=== PATIENT | male | born 1940 | race Caucasian/White ===

== ENCOUNTER 2019-01-10 08:19 | Inpatient (IN) ==
[2019-01-10] MEDS ORDERED: LOPRESSOR INJ 5 MG AMP ONE (08:52)
[2019-01-10] MEDS ORDERED: NORMODYNE INJ 100 MG VIAL ONE (08:53)
--- NOTE | 2019-01-10 09:07 | DR.WEAKNES ---
HPI Time Seen Time Seen by Provider: 01/10/19 08:41 Complaints Chief Complaint Doctors Comments: LEFT SIDED WEAKNESS. Chief Complaint:: PT TO ER VIA EMS WITH C/O LEFT SIDED WEAKNESS THAT STARTED 30 MIN AGO, Reviewed Nurses Notes Reviewed: Yes Source History Provided: Patient and EMS Mode of Arrival Mode of Arrival: Stretcher Timing Onset of Chief Complaint: 01/10/19 Location Weakness Location: Generalized and Sided Associated Signs and Symptoms Associated Signs and Symptoms: None Other History Other History: HYPERTENSION. PMH PMH Past Medical History: Yes Past Medical History: Diabetes and Hypertension Past Surgical History: No Family History History of Family Medical Conditions: No Social History Does patient currently use any type of tobacco product: No Have you used tobacco products in the last 12 months: No Type of Tobacco Use: None Does any household member use tobacco: No Alcohol Use: None Do you use any recreational Drugs:: No Lives With: Family Lives Where: Home infectious screening In the last 2 months have you had wt loss of >10#?: NO Have you had fever, night sweats or hemotysis?: No Have you traveled outside the country in the last 6 months?: No Isolation: Standard ROS Review of Systems Constitutional: No Symptoms Reported and Weakness; negative Chills, Diaphoresis, Fever, Fatigue and Loss of Appetite Eyes: No Symptoms Reported; negative Eye Pain, Blurred Vision, Tearing, Discharge, Photophobia and Diplopia ENTM: No Symptoms Reported; negative Ear Pain, Nose Discharge, Epistaxis, Nose Congestion and Throat Pain Respiratoy: No Symptoms Reported; negative Productive Cough, Orthopnea, Short of Breath, Wheezing and Hemoptysis Cardiovascular: No Symptoms Reported; negative Chest Pain, Edema, Palpitations and Syncope Gastrointestinal/Abdominal: No Symptoms Reported; negative Abdominal Pain, Constipation, Diarrhea, Nausea and Vomiting Genitourinary: No Symptoms Reported; negative Dysuria, Frequency and Hematuria Neurological: No Symptoms Reported Musculoskeletal: Other (LEFT SIDED WEAKNESS.) Integumentary: No Symptoms Reported; negative Change in Color, Bruises and Juandice Hematologic/Lymphatic: No Symptoms Reported; negative Easy Bleeding, Easy Bruising, Swollen Glands and Lymphadenopathy Endocrine: No Symptoms Reported; negative Flushing, Increased Thirst and Increased Urine Psychiatric: No Symptoms Reported All Other Systems: Reviewed and Negative PE Vital Signs Vitals: Temperature 97.6 F Pulse Rate 55 Respiratory Rate 14 Blood Pressure 110/55 O2 Sat by Pulse Oximetry 94 General Limitations: No Limitations General Appearance: Alert, In No Apparent Distress and Other (RIGHT FACIAL DROOPING.); negative In Distress Head Head Exam: Atraumatic, Normocephalic and Other Head Exam Physical: Other (NONE OF THE ABOVE NOTED) Eyes Eye exam: PERRL and EOMI; negative Scleral Icterus, Conjunctival Injection, Nystagmus, Miosis, Mydrasis, Periorbital Swelling and Periorbital Tenderness Eyelids: Normal Inspection: Bilateral Pupils: Regular, Round: Bilateral and Reactive: Bilateral Sclera/Conjunctival: Normal Inspection: Bilateral ENT ENT Exam: Normal Exam, Normal Oropharynx, Normal External Ear Exam, Mucous Membranes Moist and TM's Normal Bilaterally Mouth Exam: negative Drooling, Trismus, Lip Swelling and Tongue Swelling Throat Exam: Normal Inspection, Tonsillar Erythema, Tonsillomegaly and Tonsillar Exudate Neck Neck Exam: Normal Inspection, Full ROM and Trachea Midline; negative Tenderness, Meningismus and Lymphadenopathy Chest Chest Inspection: Normal Inspection and Symmetric Chest Wall Rise; negative Tenderness and Rash Respiratory Respiratory Exam: Normal Lung Sounds Bilat; negative Accessory Muscle Use, Chest Wall Tenderness and Respiratory Distress Respiratory Exam: Bilateral: Rhonchi and Lower: Rhonchi Cardiovascular Cardiovascular Exam: Regular Rate; negative Systolic Murmur, Diastolic Murmur, Rubs and Gallop Abdominal Exam Abdominal Exam: Normal Inspection, Normal Bowel Sounds and Soft; negative Tenderness, Organomegaly and Mass Extremities Extremities Exam: Normal Inspection and Normal Capillary Refill; negative Tenderness, Edema, Joint Swelling and Calf Tenderness Back Back Exam: Normal Inspection; negative Tenderness, Paraspinal Tenderness and Vertebral Tenderness Neurologic Neurological Exam: Alert, Oriented X3 and Motor Sensory Deficit (LEFT SIDED WEAKNESS.); negative CN II-XII Intact (GAG INTACT.) Patient Oriented To: Person, Place and Time Speech: Fluid Speech Cranial Nerve Exam: EOM Function (II, III, IV, ): Normal, Facial Sensation (V ): Normal, Facial Palsy (VII): Right Abnormal, Gag reflex (XI): Normal, Spinal Accessory Function (XI): Normal and Tongue Deviation: Normal Cerebellar Function: Finger to Nose: Normal Motor Strength - LUE: 1/5 Motor Strength - RUE: 4/5 Motor Strength - LLE: 0/5 Motor Strength - RLE: 4/5 Upper Motor Neuron Exam: Babinski Sign: Left Positive DTR: bicep (R): 2+, brachioradialis (L): 2+, brachioradialis (R): 2+ and Patellar (L): 2+ Psychiatric Psychiatric Exam: Normal Affect and Anxious Skin Skin Exam: Warm, Dry, Intact and Normal Color MDM Differential Diagnosis Differential Diagnosis: CVA, Electrolyte Disorder, Mass Lesion and TIA COURSE Treatment Treatment: SEE ORDERS. Education/Counseling Education/Counseling: Patient Educated On: Diagnosis ROR Labs Reviewed Laboratory Results Reviewed?: Yes Result Diagrams: 01/12/19 05:11 01/12/19 05:11 Laboratory: WBC 11.2 X10^3/uL (3.6-10.0) H 01/12/19 05:11 RBC 4.95 X10^6/uL (4.7-6.0) 01/12/19 05:11 Hgb 15.4 g/dL (13.5-18.0) 01/12/19 05:11 Hct 45.2 % (42.0-54.0) 01/12/19 05:11 MCV 91.3 fL (80.0-100.0) 01/12/19 05:11 MCH 31.1 pg (27.0-34.0) 01/12/19 05:11 MCHC 34.1 g/dL (33.0-35.0) 01/12/19 05:11 RDW 13.2 % (11.6-16.5) 01/12/19 05:11 Plt Count 189 X10^3/uL (150.0-450.0) 01/12/19 05:11 MPV 10.0 fL (7.4-11.0) 01/12/19 05:11 Neut % (Auto) 83.9 % (42.0-75.0) H 01/12/19 05:11 Lymph % (Auto) 7.8 % (21.0-51.0) L 01/12/19 05:11 [place] % (Auto) 7.8 % (0.0-13.0) 01/12/19 05:11 Eos % (Auto) 0.2 % (0.9-2.9) L 01/12/19 05:11 Baso % (Auto) 0.3 % (0.2-1.0) 01/12/19 05:11 Neut # (Auto) 9.4 x10^3/uL (2.2-4.8) H 01/12/19 05:11 Lymph # (Auto) 0.9 X10^3/uL (1.3-2.9) L 01/12/19 05:11 [place] # (Auto) 0.9 x10^3/uL (0.3-0.8) H 01/12/19 05:11 Eos # (Auto) 0.0 x10^3/uL (0.0-0.2) 01/12/19 05:11 Baso # (Auto) 0.0 X10^3/uL (0.0-0.1) 01/12/19 05:11 Absolute Nucleated RBC 0.0 /100WBC 01/12/19 05:11 INR Target Range - 01/10/19 08:55 INR 0.96 (0.8-1.3) 01/10/19 08:55 APTT 30.6 SECONDS (22.9-36.5) 01/10/19 08:55 PTT Comment - 01/10/19 08:55 Sodium 135 mmol/L (136-145) L 01/12/19 05:11 Corrected Sodium 138 mmol/L (136-145) 01/12/19 05:11 Potassium 4.4 mmol/L (3.5-5.1) 01/12/19 05:11 Chloride 100 mmol/L (98-107) 01/12/19 05:11 Carbon Dioxide 20.5 mmol/L (21-32) L 01/12/19 05:11 BUN 45 mg/dL (7-18) H 01/12/19 05:11 Creatinine 1.37 mg/dL (0.70-1.30) H 01/12/19 05:11 Est GFR (MDRD) Af Amer > 60 (>60) 01/12/19 05:11 Est GFR (MDRD) Non-Af 53 (>60) L 01/12/19 05:11 Glucose 242 mg/dL (65-99) H 01/12/19 05:11 POC Glucose (mg/dL) 214 mg/dL (65-99) H 01/12/19 16:38 Calcium 9.4 mg/dL (8.5-10.1) 01/12/19 05:11 Corrected Calcium TNP 01/12/19 05:11 Magnesium 1.7 mg/dL (1.7-2.9) 01/11/19 04:01 Total Bilirubin 1.10 mg/dL (0.2-1.0) H 01/12/19 05:11 AST 11 Units/L (15-37) L 01/12/19 05:11 ALT 12 Units/L (12-78) 01/12/19 05:11 Alkaline Phosphatase 54 Units/L (46-116) 01/12/19 05:11 Creatine Kinase 70 Units/L (39-308) 01/10/19 21:44 CK-MB (CK-2) 1.4 ng/mL (0-4.0) 01/10/19 21:44 CK/CKMB % Calc 2.0 % (<4) 01/10/19 21:44 Troponin I < 0.02 ng/mL (0-1.5) 01/10/19 21:44 Total Protein 7.0 g/dL (6.4-8.2) 01/12/19 05:11 Albumin 3.7 g/dL (3.4-5.0) 01/12/19 05:11 Globulin 3.3 g/dL (2.5-4.5) 01/12/19 05:11 Albumin/Globulin Ratio 1.1 Ratio (1.1-2.1) 01/12/19 05:11 Specimen Type Catherized urine 01/10/19 15:40 Urine Color Yellow (YELLOW) 01/10/19 15:40 Urine Appearance Clear (CLEAR) 01/10/19 15:40 Urine pH 6.0 (5.0 - 8.0) 01/10/19 15:40 Ur Specific [place] 1.015 (1.000-1.030) 01/10/19 15:40 Urine Protein 2+ (NEGATIVE) 01/10/19 15:40 Urine Glucose (UA) 4+ (NEGATIVE) 01/10/19 15:40 Urine Ketones 1+ (NEGATIVE) 01/10/19 15:40 Urine Occult Blood 2+ (NEGATIVE) 01/10/19 15:40 Urine Nitrite Negative (NEGATIVE) 01/10/19 15:40 Urine Bilirubin Negative (NEGATIVE) 01/10/19 15:40 Urine Urobilinogen Normal (NORMAL) 01/10/19 15:40 Ur Leukocyte Esterase Negative (NEGATIVE) 01/10/19 15:40 Urine RBC 0-2 /HPF (NONE SEEN) 01/10/19 15:40 Urine WBC 0-2 /HPF (NONE SEEN) 01/10/19 15:40 Ur Squamous Epith Cells Rare /HPF (NEGATIVE) 01/10/19 15:40 Urine Bacteria Negative /HPF (NEGATIVE) 01/10/19 15:40 Ur Culture Indicated? No/not indicated 01/10/19 15:40 XRAY XRAY Interpreted by: Radiologist XRAY Findings: REPORT ON RECORD NOTED AND DISCUSS WITH PATIENT. EKG Rate: 64 [place]: Normal Rhythm: NSR Block: 1 (INCREASE [place] INT.) Hypertrophy: None ST: Old, Inf and Infarct Diagnosis Discharge Problem: CVA (cerebral vascular accident)
[2019-01-10 09:11] VITALS: BMI 31.3
[2019-01-10] MEDS ORDERED: NORMODYNE INJ 20 MG VIAL IVP ONE (09:11)
--- NOTE | 2019-01-10 09:15 | CT ---
HISTORY: Acute left-sided weakness Study: CT head without contrast Comparison: None Technique: Technique: Axial noncontrast images with coronal and sagittal reformats. Dose reduction procedures were used with mA/kv adjusted for body size. Findings: The ventricles are normal in size, shape, and position. There is decreased attenuation in the periventricular white matter suggestive of small vessel vascular disease. There is a focus of decreased attenuation in the right centrum semiovale extending into the right horvath radiata which could represent a focus of small vessel disease, however, edema secondary to a recent nonhemorrhagic CVA cannot be excluded particularly considering the history. MRI with diffusion imaging is recommended for further evaluation. There is an old lacunar are CVA in the left sub insular region there is no evidence for hemorrhage, mass lesion, or extra-axial fluid collection. IMPRESSION: Focus of decreased attenuation in the right centrum semiovale extending into the right horvath radiata possibly indicative of edema secondary to a nonhemorrhagic CVA. Correlation with MRI with diffusion imaging is recommended. No evidence for hemorrhage Small vessel disease Reported By:
[2019-01-10 09:22] LABS: BASOPHILS % (AUTO) 0.6 % (0.2-1.0); EOSINOPHILS # (AUTO) 0.2 x10^3/uL (0.0-0.2); EOSINOPHILS % (AUTO) 2.9 % (0.9-2.9); HEMOGLOBIN 16.6 g/dL (13.5-18.0); LYMPHOCYTES # (AUTO) 1.1 X10^3/uL (1.3-2.9); MEAN CORPUSCULAR HEMOGLOBIN 31.1 pg (27.0-34.0); MEAN CORPUSCULAR HGB CONC 33.9 g/dL (33.0-35.0); MEAN CORPUSCULAR VOLUME 91.7 fL (80.0-100.0); MEAN PLATELET VOLUME 9.7 fL (7.4-11.0); MONOCYTES # (AUTO) 0.4 x10^3/uL (0.3-0.8); MONOCYTES % (AUTO) 4.9 % (0.0-13.0); NEUTROPHILS # (AUTO) 6.2 x10^3/uL (2.2-4.8); NEUTROPHILS % (AUTO) 77.6 % (42.0-75.0); PLATELET COUNT 191 X10^3/uL (150.0-450.0); RED BLOOD COUNT 5.34 X10^6/uL (4.7-6.0); WHITE BLOOD COUNT 7.9 X10^3/uL (3.6-10.0)
[2019-01-10 09:37] LABS: BLOOD UREA NITROGEN 36 mg/dL (7-18); CALCIUM 9.7 mg/dL (8.5-10.1); CARBON DIOXIDE 23.1 mmol/L (21-32); CHLORIDE 99 mmol/L (98-107); COR NA(FOR HYPERGLY) 139 mmol/L (136-145); CREATININE 1.42 mg/dL (0.70-1.30); SODIUM 136 mmol/L (136-145); TROPONIN I < 0.02 ng/mL (0-1.5); eGFR NON BLACK RACES 51 (>60)
[2019-01-10 09:41] LABS: ALANINE AMINOTRANSFERASE 13 Units/L (12-78); ALBUMIN 4.3 g/dL (3.4-5.0); ALKALINE PHOSPHATASE 58 Units/L (46-116); ASPARTATE AMINO TRANSFERASE 16 Units/L (15-37); CKMB % 1.9 % (<4); CREATINE KINASE 59 Units/L (39-308); CREATINE KINASE MB 1.1 ng/mL (0-4.0); TOTAL PROTEIN 7.8 g/dL (6.4-8.2)
--- NOTE | 2019-01-10 09:45 | RAD ---
HISTORY: Shortness of breath Study: Chest AP portable Comparison: None Findings: The heart is minimally enlarged. No congestive heart failure is noted. The reed are normal. The lungs are hypo inflated but free of acute infiltrates. The bony thorax is unremarkable. IMPRESSION: Lungs hypo inflated but clear Reported By:
[2019-01-10 09:52] LABS: BILIRUBIN,URINE NEGATIVE (NEGATIVE); BLOOD/HEMOGLOBIN,URINE 1+ (NEGATIVE); GLUCOSE, URINE 4+ (NEGATIVE); KETONES,URINE 3+ (NEGATIVE); LEUKOCYTE ESTERASE ,URINE 1+ (NEGATIVE); NITRITES,URINE NEGATIVE (NEGATIVE); PROTEIN,URINE 2+ (NEGATIVE); UROBILINOGEN,URINE NORMAL (NORMAL)
[2019-01-10 09:59] LABS: APPEARANCE,URINE CLEAR (CLEAR); COLOR,URINE YELLOW (YELLOW)
[2019-01-10 10:00] LABS: BACTERIA,URINE NEGATIVE /HPF (NEGATIVE); RBC,URINE 0-2 /HPF (NONE SEEN); SQUAMOUS EPITHELIAL CELL,UR NEGATIVE /HPF (NEGATIVE)
[2019-01-10] MEDS ORDERED: ASPIRIN 81 MG CHEWTAB ONE (10:06)
[2019-01-10] MEDS ORDERED: ASPIRIN 81 MG CHEWTAB PO SCH (11:00)
[2019-01-10] MEDS: VALIUM INJ IVP PRN ×2 (16:11→23:17)
[2019-01-10 16:34] LABS: BILIRUBIN,URINE NEGATIVE (NEGATIVE); BLOOD/HEMOGLOBIN,URINE 2+ (NEGATIVE); GLUCOSE, URINE 4+ (NEGATIVE); KETONES,URINE 1+ (NEGATIVE); LEUKOCYTE ESTERASE ,URINE NEGATIVE (NEGATIVE); NITRITES,URINE NEGATIVE (NEGATIVE); PROTEIN,URINE 2+ (NEGATIVE); UROBILINOGEN,URINE NORMAL (NORMAL)
[2019-01-10 16:54] LABS: APPEARANCE,URINE CLEAR (CLEAR); BACTERIA,URINE NEGATIVE /HPF (NEGATIVE); COLOR,URINE YELLOW (YELLOW); RBC,URINE 0-2 /HPF (NONE SEEN); SQUAMOUS EPITHELIAL CELL,UR RARE /HPF (NEGATIVE)
[2019-01-10 17:11] LABS: CKMB % 2.3 % (<4); CREATINE KINASE 56 Units/L (39-308); CREATINE KINASE MB 1.3 ng/mL (0-4.0); TROPONIN I < 0.02 ng/mL (0-1.5)
[2019-01-10] MEDS ORDERED: TYLENOL 325 MG TAB PO PRN (18:04)
[2019-01-10] MEDS: HumuLIN R SC PRN (18:07)
[2019-01-10] MEDS: PROTONIX INJ 40 MG VIAL IVP SCH (18:08)
[2019-01-10] MEDS ORDERED: ULTRAM ONE (18:08)
[2019-01-10] MEDS: ULTRAM PO PRN (18:25)
[2019-01-10] MEDS: NORVASC TAB 10 MG PO SCH (21:12)
[2019-01-10 22:18] LABS: CREATINE KINASE 70 Units/L (39-308); CREATINE KINASE MB 1.4 ng/mL (0-4.0); TROPONIN I < 0.02 ng/mL (0-1.5)
[2019-01-11] MEDS ORDERED: CATAPRES TAB 0.1 MG PO ONE (04:01)
[2019-01-11] MEDS ORDERED: CATAPRES TAB 0.1 MG ONE (04:06)
[2019-01-11 05:22] LABS: BASOPHILS % (AUTO) 0.3 % (0.2-1.0); EOSINOPHILS # (AUTO) 0.1 x10^3/uL (0.0-0.2); EOSINOPHILS % (AUTO) 1.3 % (0.9-2.9); HEMATOCRIT 46.6 % (42.0-54.0); LYMPHOCYTES # (AUTO) 1.1 X10^3/uL (1.3-2.9); LYMPHOCYTES % (AUTO) 11.8 % (21.0-51.0); MEAN CORPUSCULAR HEMOGLOBIN 31.3 pg (27.0-34.0); MEAN CORPUSCULAR HGB CONC 34.3 g/dL (33.0-35.0); MEAN CORPUSCULAR VOLUME 91.3 fL (80.0-100.0); MEAN PLATELET VOLUME 9.7 fL (7.4-11.0); MONOCYTES # (AUTO) 0.6 x10^3/uL (0.3-0.8); MONOCYTES % (AUTO) 6.9 % (0.0-13.0); NEUTROPHILS # (AUTO) 7.3 x10^3/uL (2.2-4.8); NEUTROPHILS % (AUTO) 79.7 % (42.0-75.0); PLATELET COUNT 172 X10^3/uL (150.0-450.0); RED CELL DISTRIBUTION WIDTH 13.2 % (11.6-16.5); WHITE BLOOD COUNT 9.2 X10^3/uL (3.6-10.0)
[2019-01-11 05:34] LABS: ALANINE AMINOTRANSFERASE 12 Units/L (12-78); ALBUMIN 3.9 g/dL (3.4-5.0); ALKALINE PHOSPHATASE 53 Units/L (46-116); ASPARTATE AMINO TRANSFERASE 15 Units/L (15-37); BLOOD UREA NITROGEN 31 mg/dL (7-18); CALCIUM 9.6 mg/dL (8.5-10.1); CARBON DIOXIDE 21.7 mmol/L (21-32); CHLORIDE 100 mmol/L (98-107); COR NA(FOR HYPERGLY) 137 mmol/L (136-145); CREATININE 1.12 mg/dL (0.70-1.30); MAGNESIUM 1.7 mg/dL (1.7-2.9); SODIUM 136 mmol/L (136-145); eGFR NON BLACK RACES > 60 (>60)
[2019-01-11] MEDS ORDERED: PRAVACHOL PO SCH (09:00)
[2019-01-11] MEDS: PROTONIX INJ 40 MG VIAL IVP SCH (09:27)
[2019-01-11] MEDS: ASPIRIN PO SCH (09:27)
[2019-01-11] MEDS: ACTOS PO SCH (09:28)
[2019-01-11] MEDS: NORVASC TAB 10 MG PO SCH (09:28)
[2019-01-11] MEDS: COZAAR PO SCH (13:21)
[2019-01-11] MEDS: PLAVIX PO SCH (13:21)
[2019-01-11] MEDS: ULTRAM PO PRN (15:50)
[2019-01-11] MEDS: HumuLIN R SC PRN (16:43)
[2019-01-11] MEDS ORDERED: VALIUM PO PRN (20:25)
[2019-01-11] MEDS ORDERED: VALIUM ONE (20:29)
[2019-01-11] MEDS: CRESTOR TAB 10 MG PO SCH (20:30)
[2019-01-11] MEDS: RESTORIL CAP 15 MG PO PRN (22:10)
[2019-01-12 05:30] LABS: BASOPHILS % (AUTO) 0.3 % (0.2-1.0); EOSINOPHILS % (AUTO) 0.2 % (0.9-2.9); HEMATOCRIT 45.2 % (42.0-54.0); HEMOGLOBIN 15.4 g/dL (13.5-18.0); LYMPHOCYTES # (AUTO) 0.9 X10^3/uL (1.3-2.9); LYMPHOCYTES % (AUTO) 7.8 % (21.0-51.0); MEAN CORPUSCULAR HEMOGLOBIN 31.1 pg (27.0-34.0); MEAN CORPUSCULAR HGB CONC 34.1 g/dL (33.0-35.0); MEAN CORPUSCULAR VOLUME 91.3 fL (80.0-100.0); MONOCYTES # (AUTO) 0.9 x10^3/uL (0.3-0.8); MONOCYTES % (AUTO) 7.8 % (0.0-13.0); NEUTROPHILS # (AUTO) 9.4 x10^3/uL (2.2-4.8); NEUTROPHILS % (AUTO) 83.9 % (42.0-75.0); PLATELET COUNT 189 X10^3/uL (150.0-450.0); RED BLOOD COUNT 4.95 X10^6/uL (4.7-6.0); RED CELL DISTRIBUTION WIDTH 13.2 % (11.6-16.5); WHITE BLOOD COUNT 11.2 X10^3/uL (3.6-10.0)
[2019-01-12 05:40] LABS: ALANINE AMINOTRANSFERASE 12 Units/L (12-78); ALBUMIN 3.7 g/dL (3.4-5.0); ALKALINE PHOSPHATASE 54 Units/L (46-116); ASPARTATE AMINO TRANSFERASE 11 Units/L (15-37); BLOOD UREA NITROGEN 45 mg/dL (7-18); CALCIUM 9.4 mg/dL (8.5-10.1); CARBON DIOXIDE 20.5 mmol/L (21-32); CHLORIDE 100 mmol/L (98-107); COR NA(FOR HYPERGLY) 138 mmol/L (136-145); CREATININE 1.37 mg/dL (0.70-1.30); SODIUM 135 mmol/L (136-145); eGFR NON BLACK RACES 53 (>60)
[2019-01-12] MEDS: HumuLIN R SC PRN ×5 (06:16→20:37)
[2019-01-12] MEDS: ASPIRIN PO SCH (08:36)
[2019-01-12] MEDS: MILK OF MAGNESIA PO SCH ×2 (08:36→20:36)
[2019-01-12] MEDS: PROTONIX INJ 40 MG VIAL IVP SCH (08:36)
[2019-01-12] MEDS: ACTOS PO SCH ×2 (08:36→12:10)
[2019-01-12] MEDS: COZAAR PO SCH (08:36)
[2019-01-12] MEDS: NORVASC TAB 10 MG PO SCH (08:37)
[2019-01-12] MEDS: COLACE CAP 100 MG PO SCH ×2 (08:38→20:38)
[2019-01-12] MEDS: PLAVIX PO SCH (08:38)
[2019-01-12] MEDS: GLUCOPHAGE XR PO SCH ×2 (12:11→20:36)
[2019-01-12] MEDS: RESTORIL CAP 15 MG PO PRN (20:38)
[2019-01-12] MEDS: CRESTOR TAB 10 MG PO SCH (20:38)
[2019-01-13] MEDS: HumuLIN R SC PRN ×3 (05:39→21:00)
[2019-01-13 05:43] LABS: BASOPHILS % (AUTO) 0.4 % (0.2-1.0); EOSINOPHILS # (AUTO) 0.1 x10^3/uL (0.0-0.2); EOSINOPHILS % (AUTO) 0.8 % (0.9-2.9); HEMATOCRIT 45.9 % (42.0-54.0); HEMOGLOBIN 15.5 g/dL (13.5-18.0); LYMPHOCYTES # (AUTO) 1.1 X10^3/uL (1.3-2.9); LYMPHOCYTES % (AUTO) 9.4 % (21.0-51.0); MEAN CORPUSCULAR HEMOGLOBIN 30.9 pg (27.0-34.0); MEAN CORPUSCULAR HGB CONC 33.7 g/dL (33.0-35.0); MEAN CORPUSCULAR VOLUME 91.7 fL (80.0-100.0); MEAN PLATELET VOLUME 10.2 fL (7.4-11.0); MONOCYTES % (AUTO) 8.8 % (0.0-13.0); NEUTROPHILS # (AUTO) 9.4 x10^3/uL (2.2-4.8); NEUTROPHILS % (AUTO) 80.6 % (42.0-75.0); PLATELET COUNT 191 X10^3/uL (150.0-450.0); RED BLOOD COUNT 5.01 X10^6/uL (4.7-6.0); RED CELL DISTRIBUTION WIDTH 13.2 % (11.6-16.5); WHITE BLOOD COUNT 11.7 X10^3/uL (3.6-10.0)
[2019-01-13 05:54] LABS: ALANINE AMINOTRANSFERASE 11 Units/L (12-78); ALBUMIN 3.7 g/dL (3.4-5.0); ALKALINE PHOSPHATASE 53 Units/L (46-116); ASPARTATE AMINO TRANSFERASE 14 Units/L (15-37); BLOOD UREA NITROGEN 60 mg/dL (7-18); CALCIUM 9.7 mg/dL (8.5-10.1); CARBON DIOXIDE 25.7 mmol/L (21-32); CHLORIDE 100 mmol/L (98-107); COR NA(FOR HYPERGLY) 139 mmol/L (136-145); CREATININE 1.41 mg/dL (0.70-1.30); SODIUM 136 mmol/L (136-145); eGFR NON BLACK RACES 52 (>60)
[2019-01-13] MEDS: GLUCOPHAGE XR PO SCH ×2 (09:51→21:01)
[2019-01-13] MEDS: PROTONIX INJ 40 MG VIAL IVP SCH (09:51)
[2019-01-13] MEDS: MILK OF MAGNESIA PO SCH ×2 (09:51→21:01)
[2019-01-13] MEDS: ASPIRIN PO SCH (09:51)
[2019-01-13] MEDS: COLACE CAP 100 MG PO SCH ×2 (09:52→21:00)
[2019-01-13] MEDS: ACTOS PO SCH (09:52)
[2019-01-13] MEDS: NORVASC TAB 10 MG PO SCH (09:52)
[2019-01-13] MEDS: PLAVIX PO SCH (09:52)
[2019-01-13] MEDS: COZAAR PO SCH (09:52)
[2019-01-13] MEDS ORDERED: NS 1000 ML 1,000 ML ONE (16:08)
[2019-01-13] MEDS: NS 1000 ML 1,000 ML IV SCH (16:51)
[2019-01-13] MEDS: CRESTOR TAB 10 MG PO SCH (21:00)
[2019-01-14] MEDS: NS 1000 ML 1,000 ML IV SCH ×2 (01:19→10:33)
[2019-01-14 05:00] LABS: BASOPHILS % (AUTO) 0.4 % (0.2-1.0); EOSINOPHILS # (AUTO) 0.4 x10^3/uL (0.0-0.2); HEMATOCRIT 43.5 % (42.0-54.0); HEMOGLOBIN 14.8 g/dL (13.5-18.0); LYMPHOCYTES # (AUTO) 1.2 X10^3/uL (1.3-2.9); LYMPHOCYTES % (AUTO) 13.2 % (21.0-51.0); MEAN CORPUSCULAR HEMOGLOBIN 31.3 pg (27.0-34.0); MEAN CORPUSCULAR HGB CONC 33.9 g/dL (33.0-35.0); MEAN CORPUSCULAR VOLUME 92.1 fL (80.0-100.0); MEAN PLATELET VOLUME 10.1 fL (7.4-11.0); MONOCYTES # (AUTO) 0.8 x10^3/uL (0.3-0.8); NEUTROPHILS # (AUTO) 6.8 x10^3/uL (2.2-4.8); NEUTROPHILS % (AUTO) 73.4 % (42.0-75.0); PLATELET COUNT 157 X10^3/uL (150.0-450.0); RED BLOOD COUNT 4.72 X10^6/uL (4.7-6.0); RED CELL DISTRIBUTION WIDTH 13.4 % (11.6-16.5); WHITE BLOOD COUNT 9.3 X10^3/uL (3.6-10.0)
[2019-01-14 05:10] LABS: ALANINE AMINOTRANSFERASE 15 Units/L (12-78); ALBUMIN 3.2 g/dL (3.4-5.0); ALKALINE PHOSPHATASE 52 Units/L (46-116); ASPARTATE AMINO TRANSFERASE 19 Units/L (15-37); BLOOD UREA NITROGEN 66 mg/dL (7-18); CALCIUM 8.9 mg/dL (8.5-10.1); CARBON DIOXIDE 24.7 mmol/L (21-32); CHLORIDE 105 mmol/L (98-107); COR CA(FOR HYPOALB) 9.5 mg/dL (8.5-10.1); CREATININE 1.35 mg/dL (0.70-1.30); SODIUM 140 mmol/L (136-145); TOTAL PROTEIN 6.2 g/dL (6.4-8.2); eGFR NON BLACK RACES 54 (>60)
--- NOTE | 2019-01-14 09:43 | DR.H&P ---
H&P - History & Physical for Day of: H&P Date: 01/10/19 - Chief Complaint Chief Complaint: LEFT SIDED WEAKNESS - History of Present Illness History of Present Illness: IS A 78 YEAR OLD PATIENT OF OURS WHO PRESENTED TO THE ER WITH COMPLAINTS OF LEFT SIDED WEAKNESS THAT STARTED APPROXIMATELY 30 MINUTES PRIOR TO ARRIVAL. ON EXAMINATION, HE WAS NOTED WITH LEFT UPPER EXTREMITY PARALYSIS. HE DOES HAVE SOME MOVEMENT TO THE LEFT LOWER EX TREMITY. HE IS ALSO NOTED WITH SLURRED SPEECH. ON ARRIVAL, VITALS WERE 97.0-69-20-99%-208/79. LABS WERE OBTAINED. ABNORMAL LAB VALUES INCLUDE THE FOLLOWING: BUN 36, CREATININE 1.42, GLUCOSE 215. A BRAIN CT WAS OBTAINED AND REVEALED: Focus of decreased attenuation in the right centrum semiovale extending into the right horvath radiata possibly indicative of edema secondary to a nonhemorrhagic CVA. Correlation with MRI with diffusion imaging is recommended. No evidence for hemorrhage. Small vessel disease. EKG REVEALED: SINUS RHYTHM WITH HR 64. CHEST XRAY REVEALED: LUNGS HYPOINFLATED BUT CLEAR. HE WAS ADMITTED FOR FURTHER EVALUATION AND TREATMENT OF CVA WITH LEFT SIDED WEAKNESS, HTN, AND DM. WE WILL OBTAIN NEURO CHECKS AND REVIEW HIS HOME MEDICATIONS. WE WILL ALSO CONSULT WITH SPEECH AND PHYSICAL THERAPY. OTHERWISE, WE PLAN TO FOLLOW-UP WITH AM LABS AND CONTINUE TO MONITOR. - Past Medical History Past Medical History: Hypertension, Diabetes - Past Surgical History Surgical History: Other - Social History Does patient currently use any type of tobacco product: No Have you used tobacco products in the last 12 months: No Type of Tobacco Use: None Does any household member use tobacco: No Alcohol Use: None Drug Use: None - Medications Home Medications: No Known Drug Allergies Allergy (Verified 01/10/19 09:15) CONTINUE taking the following medications canagliflozin [Invokana] 300 mg PO DAILY 01/10/19 [History] gabapentin 400 mg PO BID 01/10/19 [History] glipizide 10 tab PO BID 01/10/19 [History] hydralazine 25 mg PO BID 01/10/19 [History] metformin 850 mg PO BID 01/10/19 [History] New Prescriptions amlodipine 5 mg PO QDAY #30 tab 01/14/19 [Rx] diazepam 5 mg PO Q8H PRN #90 tab 01/14/19 [Rx] pioglitazone 15 mg PO DAILY #30 tab 01/14/19 [Rx] rosuvastatin 20 mg PO HS #30 tab 01/14/19 [Rx] temazepam 15 mg PO HS PRN #30 cap 01/14/19 [Rx] tramadol 50 mg PO Q6H PRN #120 tab 01/14/19 [Rx] - Review of Systems Constitutional: Weakness Eyes: No Symptoms Reported ENT: No Symptoms Reported Respiratory: No Symptoms Reported Cardiovascular: No Symptoms Reported Gastrointestinal: No Symptoms Reported Genitourinary: No Symptoms Reported Musculoskeletal: Other (LEFT UPPER EXTREMITY PARALYSIS, LEFT LOWER EXTREMITY WEAKNESS ) Skin: No Symptoms Reported Neurological: Weakness (LEFT UPPER EXTREMITY PARALYSIS, LEFT LOWER EXTREMITY WEAKNESS ) - Physical Exam Vital Signs: Temperature 97.8 F Pulse Rate 51 Respiratory Rate 16 Blood Pressure 113/57 O2 Sat by Pulse Oximetry 93 Oriented: Normal Eyes: Normal Ear: Normal Nose: Normal Throat: Normal Respiratory: Diminished Throughout Cardiovascular: Normal : Normal Auscultation: Bowel Sounds: Normal Palpation: Normal Tenderness: Normal Skin: Normal Musculoskeletal: Left, Arm, Leg, Motor Deficit, Sensory Deficit Psychiatric: Normal Mood Description: Calm Affect: Normal Speech Pattern: Unclear, Slurred - Assessment/Plan (1) CVA (cerebral vascular accident) Qualifiers: CVA mechanism: unspecified Qualified Code(s): I63.9 - Cerebral infarction, unspecified Status: Acute Plan: ADMIT, ASPIRIN, PLAVIX, NEURO CHECKS, B/P CONTROL, GLUCOSE CONTROL, CONTINUE TO MONITOR (2) Hypertension Qualifiers: Hypertension type: essential hypertension Qualified Code(s): I10 - Essential (primary) hypertension Status: Acute (3) Diabetes Qualifiers: Diabetes mellitus type: type 2 Diabetes mellitus alf insulin use: wit h alf use Diabetes mellitus complication status: with unspecified complications Qualified Code(s): E11.8 - Type 2 diabetes mellitus with uns pecified complications; 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
[2019-01-14] MEDS: ASPIRIN PO SCH (09:48)
[2019-01-14] MEDS: PROTONIX INJ 40 MG VIAL IVP SCH (09:48)
[2019-01-14] MEDS: MILK OF MAGNESIA PO SCH ×2 (09:48→21:22)
[2019-01-14] MEDS: COZAAR PO SCH (09:49)
[2019-01-14] MEDS: NORVASC TAB 10 MG PO SCH (09:49)
[2019-01-14] MEDS: COLACE CAP 100 MG PO SCH ×2 (09:51→21:21)
[2019-01-14] MEDS: PLAVIX PO SCH (09:51)
[2019-01-14] MEDS: ACTOS PO SCH (10:34)
[2019-01-14] MEDS: GLUCOPHAGE XR PO SCH ×2 (10:45→21:30)
[2019-01-14] MEDS ORDERED: DULCOLAX SUPPOSITORY 10 MG RECTAL ONE (10:46)
[2019-01-14] MEDS: CRESTOR TAB 10 MG PO SCH (21:30)
[2019-01-15 06:16] LABS: BASOPHILS % (AUTO) 0.5 % (0.2-1.0); EOSINOPHILS # (AUTO) 0.4 x10^3/uL (0.0-0.2); EOSINOPHILS % (AUTO) 6.4 % (0.9-2.9); HEMATOCRIT 42.5 % (42.0-54.0); HEMOGLOBIN 14.4 g/dL (13.5-18.0); LYMPHOCYTES # (AUTO) 1.2 X10^3/uL (1.3-2.9); LYMPHOCYTES % (AUTO) 17.7 % (21.0-51.0); MEAN CORPUSCULAR HEMOGLOBIN 30.9 pg (27.0-34.0); MEAN CORPUSCULAR HGB CONC 33.8 g/dL (33.0-35.0); MEAN CORPUSCULAR VOLUME 91.5 fL (80.0-100.0); MEAN PLATELET VOLUME 9.9 fL (7.4-11.0); MONOCYTES # (AUTO) 0.6 x10^3/uL (0.3-0.8); MONOCYTES % (AUTO) 8.6 % (0.0-13.0); NEUTROPHILS # (AUTO) 4.4 x10^3/uL (2.2-4.8); NEUTROPHILS % (AUTO) 66.8 % (42.0-75.0); PLATELET COUNT 148 X10^3/uL (150.0-450.0); RED BLOOD COUNT 4.65 X10^6/uL (4.7-6.0); RED CELL DISTRIBUTION WIDTH 13.2 % (11.6-16.5); WHITE BLOOD COUNT 6.6 X10^3/uL (3.6-10.0)
[2019-01-15 06:32] LABS: ALANINE AMINOTRANSFERASE 17 Units/L (12-78); ALBUMIN 3.3 g/dL (3.4-5.0); ALKALINE PHOSPHATASE 60 Units/L (46-116); ASPARTATE AMINO TRANSFERASE 21 Units/L (15-37); BLOOD UREA NITROGEN 42 mg/dL (7-18); CALCIUM 8.7 mg/dL (8.5-10.1); CHLORIDE 103 mmol/L (98-107); COR CA(FOR HYPOALB) 9.3 mg/dL (8.5-10.1); COR NA(FOR HYPERGLY) 139 mmol/L (136-145); CREATININE 1.05 mg/dL (0.70-1.30); SODIUM 138 mmol/L (136-145); TOTAL PROTEIN 6.4 g/dL (6.4-8.2); eGFR NON BLACK RACES > 60 (>60)
--- NOTE | 2019-01-15 08:24 | PCM.PROG ---
Progress Note - Progress Note for Day of Date of Exam: 01/14/19 - Subjective Subjective: WAS ADMITTED FOR ACUTE CVA WITH LEFT SIDED WEAKNESS AND DYSPHAGIA. TODAY, HE IS ALERT AND ORIENTED, LYING IN BED ON MORNING ROUNDS. HE CONTINUES WITH COMPLAINTS OF WEAKNESS AND DIFFICULTY SWALLOWING PILLS. STAFF REPORTS THAT THEY ARE HAVING TO CRUSH PILLS. ON EXAMINATION, HEART IS REGULAR IN RATE AND RHYTHM. BILATERAL LUNGS ARE NOTED WITH DIMINISHED LUNG SOUNDS THROUGHOUT. ABDOMEN IS ROUND, SOFT, AND NON-TENDER WITH NORMAL BOWEL SOUNDS NOTED IN ALL QUADRANTS. HE CONTINUES WITH LEFT SIDED WEAKNESS. HIS VITALS THIS MORNING ARE 98.1-57-98%-20-160/76. LABS WERE OBTAINED. ABNORMAL LAB VALUES INCLUDE THE FOLLOWING: BUN 66, CREATININE 1.35, GLUCOSE 106, TOTAL PROTEIN 6.2, ALBUMIN 3.2. TODAY, WE WILL DECREASE METFORMIN TO 500MG PO BID AND ACTOS TO 15MG PO DAILY. HE WILL CONTINUE TO RECEIVE PHYSICAL THERAPY TODAY. OTHERWISE, WE WILL CONTINUE WITH CURRENT PLAN OF CARE. WE WILL FOLLOW-UP WITH AM LABS AND CONTINUE TO MONITOR. - Past Medical Family Social History Past Med/Fam/Surg Hx: No changes since H&P Allergies: Allergies No Known Drug Allergies Allergy (Verified 01/10/19 09:15) - Review of Systems ROS: No change since H&P - Vital Signs and I&O's Vital Signs: Temperature 98.1 F Pulse Rate 60 Respiratory Rate 17 Blood Pressure 169/79 O2 Sat by Pulse Oximetry 97 Intake and Output: Intake & Output 01/12/19 01/13/19 01/14/19 01/15/19 11:59 11:59 11:59 11:59 Intake Total 1270 / 1270 1330 / 1330 2130 / 2130 4252 / 4252 Output Total 1700 / 1700 1650 / 1650 1450 / 1450 1100 / 1100 Balance -430 / -430 -320 / -320 680 / 680 3152 / 3152 - Physical Exam Oriented: Normal Eyes: Normal Ear: Normal Nose: Normal Throat: Normal Respiratory: Generalized, Diminished Cardiovascular: Normal : Normal Auscultation: Bowel Sounds: Normal Palpation: Normal Tenderness: Normal Skin: Normal Musculoskeletal: Left, Arm, Leg, Motor Deficit, Sensory Deficit Psychiatric: Normal Mood Description: Calm Affect: Normal Speech Pattern: Clear, Appropriate - Laboratory and Diagnostics Result Diagrams: 01/15/19 05:35 01/15/19 05:35 Labs: Laboratory WBC 6.6 X10^3/uL (3.6-10.0) 01/15/19 05:35 RBC 4.65 X10^6/uL (4.7-6.0) L 01/15/19 05:35 Hgb 14.4 g/dL (13.5-18.0) 01/15/19 05:35 Hct 42.5 % (42.0-54.0) 01/15/19 05:35 MCV 91.5 fL (80.0-100.0) 01/15/19 05:35 MCH 30.9 pg (27.0-34.0) 01/15/19 05:35 MCHC 33.8 g/dL (33.0-35.0) 01/15/19 05:35 RDW 13.2 % (11.6-16.5) 01/15/19 05:35 Plt Count 148 X10^3/uL (150.0-450.0) L 01/15/19 05:35 MPV 9.9 fL (7.4-11.0) 01/15/19 05:35 Neut % (Auto) 66.8 % (42.0-75.0) 01/15/19 05:35 Lymph % (Auto) 17.7 % (21.0-51.0) L 01/15/19 05:35 [place] % (Auto) 8.6 % (0.0-13.0) 01/15/19 05:35 Eos % (Auto) 6.4 % (0.9-2.9) H 01/15/19 05:35 Baso % (Auto) 0.5 % (0.2-1.0) 01/15/19 05:35 Neut # (Auto) 4.4 x10^3/uL (2.2-4.8) 01/15/19 05:35 Lymph # (Auto) 1.2 X10^3/uL (1.3-2.9) L 01/15/19 05:35 [place] # (Auto) 0.6 x10^3/uL (0.3-0.8) 01/15/19 05:35 Eos # (Auto) 0.4 x10^3/uL (0.0-0.2) H 01/15/19 05:35 Baso # (Auto) 0.0 X10^3/uL (0.0-0.1) 01/15/19 05:35 Absolute Nucleated RBC 0.0 /100WBC 01/15/19 05:35 INR Target Range - 01/10/19 08:55 INR 0.96 (0.8-1.3) 01/10/19 08:55 APTT 30.6 SECONDS (22.9-36.5) 01/10/19 08:55 PTT Comment - 01/10/19 08:55 Sodium 138 mmol/L (136-145) 01/15/19 05:35 Corrected Sodium 139 mmol/L (136-145) 01/15/19 05:35 Potassium 4.4 mmol/L (3.5-5.1) 01/15/19 05:35 Chloride 103 mmol/L (98-107) 01/15/19 05:35 Carbon Dioxide 26.0 mmol/L (21-32) 01/15/19 05:35 BUN 42 mg/dL (7-18) H 01/15/19 05:35 Creatinine 1.05 mg/dL (0.70-1.30) 01/15/19 05:35 Est GFR (MDRD) Af Amer > 60 (>60) 01/15/19 05:35 Est GFR (MDRD) Non-Af > 60 (>60) 01/15/19 05:35 Glucose 148 mg/dL (65-99) H 01/15/19 05:35 POC Glucose (mg/dL) 144 mg/dL (65-99) H 01/15/19 05:47 Calcium 8.7 mg/dL (8.5-10.1) 01/15/19 05:35 Corrected Calcium 9.3 mg/dL (8.5-10.1) 01/15/19 05:35 Magnesium 1.7 mg/dL (1.7-2.9) 01/11/19 04:01 Total Bilirubin 0.80 mg/dL (0.2-1.0) 01/15/19 05:35 AST 21 Units/L (15-37) 01/15/19 05:35 ALT 17 Units/L (12-78) 01/15/19 05:35 Alkaline Phosphatase 60 Units/L (46-116) 01/15/19 05:35 Creatine Kinase 70 Units/L (39-308) 01/10/19 21:44 CK-MB (CK-2) 1.4 ng/mL (0-4.0) 01/10/19 21:44 CK/CKMB % Calc 2.0 % (<4) 01/10/19 21:44 Troponin I < 0.02 ng/mL (0-1.5) 01/10/19 21:44 Total Protein 6.4 g/dL (6.4-8.2) 01/15/19 05:35 Albumin 3.3 g/dL (3.4-5.0) L 01/15/19 05:35 Globulin 3.1 g/dL (2.5-4.5) 01/15/19 05:35 Albumin/Globulin Ratio 1.1 Ratio (1.1-2.1) 01/15/19 05:35 Specimen Type Catherized urine 01/10/19 15:40 Urine Color Yellow (YELLOW) 01/10/19 15:40 Urine Appearance Clear (CLEAR) 01/10/19 15:40 Urine pH 6.0 (5.0 - 8.0) 01/10/19 15:40 Ur Specific [place] 1.015 (1.000-1.030) 01/10/19 15:40 Urine Protein 2+ (NEGATIVE) 01/10/19 15:40 Urine Glucose (UA) 4+ (NEGATIVE) 01/10/19 15:40 Urine Ketones 1+ (NEGATIVE) 01/10/19 15:40 Urine Occult Blood 2+ (NEGATIVE) 01/10/19 15:40 Urine Nitrite Negative (NEGATIVE) 01/10/19 15:40 Urine Bilirubin Negative (NEGATIVE) 01/10/19 15:40 Urine Urobilinogen Normal (NORMAL) 01/10/19 15:40 Ur Leukocyte Esterase Negative (NEGATIVE) 01/10/19 15:40 Urine RBC 0-2 /HPF (NONE SEEN) 01/10/19 15:40 Urine WBC 0-2 /HPF (NONE SEEN) 01/10/19 15:40 Ur Squamous Epith Cells Rare /HPF (NEGATIVE) 01/10/19 15:40 Urine Bacteria Negative /HPF (NEGATIVE) 01/10/19 15:40 Ur Culture Indicated? No/not indicated 01/10/19 15:40 - Plan (1) CVA (cerebral vascular accident) Status: Acute Qualifiers: CVA mechanism: unspecified Qualified Code(s): I63.9 - Cerebral infarction, unspecified Plan: ADMIT, ASPIRIN, PLAVIX, NEURO CHECKS, B/P CONTROL, GLUCOSE CONTROL, CONTINUE TO MONITOR (2) Hypertension Status: Acute Qualifiers: Hypertension type: essential hypertension Qualified Code(s): I10 - Essential (primary) hypertension (3) Diabetes Status: Acute Qualifiers: Diabetes mellitus type: type 2 Diabetes mellitus half-way insulin use: with half-way use Diabetes mellitus complication status: with unspecified complications Qualified Code(s): E11.8 - Type 2 diabetes mellitus with unspecified complications; Z79.4 - snf (current) use of insulin Plan: METFORMIN 500MG PO BID, ACTOS 15MG PO DAILY, HUMULIN R SLIDING SCALE
[2019-01-15] MEDS: NORVASC TAB 10 MG PO SCH (08:45)
[2019-01-15] MEDS: ACTOS PO SCH (08:45)
[2019-01-15] MEDS: MILK OF MAGNESIA PO SCH (08:46)
[2019-01-15] MEDS: COLACE CAP 100 MG PO SCH (08:46)
[2019-01-15] MEDS: PROTONIX INJ 40 MG VIAL IVP SCH (08:46)
[2019-01-15] MEDS: GLUCOPHAGE XR PO SCH (08:46)
[2019-01-15] MEDS: ASPIRIN PO SCH (08:46)
[2019-01-15] MEDS: COZAAR PO SCH (08:46)
[2019-01-15] MEDS: PLAVIX PO SCH (08:47)
[2019-01-15 09:03] VITALS: BP 171/83
== END 2019-01-15 09:38 | DRG 66 ==
LOC: ER 08:19 → ICU 12:28
PROVIDERS: ADMIT Internal Medicine; ATTEND Internal Medicine
DX: I10 Essential (primary) hypertension; E11.65 Type 2 diabetes mellitus with hyperglycemia; R26.89 Other abnormalities of gait and mobility; R60.0 Localized edema; Z79.4 Long term (current) use of insulin; R47.81 Slurred speech; I63.9 Cerebral infarction, unspecified; R13.11 Dysphagia, oral phase; G83.22 Monoplegia of upper limb affecting left dominant side; R94.31 Abnormal electrocardiogram [ECG] [EKG]
CPT/HCPCS: 36415; 70450; 71010; 71045; 80053; 81001; 82550; 82553; 82947; 83735; 84484; 85025; 85610; 85730; 92526; 92610; 93005; 96365; 96374; 97112; 97163; 97166; 97530; 97535; 99284; A4222; C9113; J1815; J3360; J3490; J7030

== ENCOUNTER 2019-06-29 08:40 | Inpatient (IN) ==
[2019-06-29 09:12] VITALS: BMI 29.5
--- NOTE | 2019-06-29 09:26 | DR.GENAD ---
HPI - PCP Primary Care Physician: JESUS - Complaint/Symptoms Chief Complaint Doctors Comments: Patient is complaining of his left leg swelling for the past two days getting worst today with pain in the left groin area. Patient fell at home and was unable to get up and EMS could not feel a pulse in his left foot. Patient states he is a patient of Dr. Peralta. He denies chest pain, SOB, cold, cough, fever, chills or any recent trauma to his leg. He smokes two cigars chiki and drink beer on occasions. He denies drug usage. He denies hematuria or dysuria or kade. He is not complaining of left shoulder pain. Chief Complaint:: [facility] CALLED OUT TO ASSIST [facility]. PT FELL AT HOME AND COULD NOT GET BACK UP WITHOUT ASSISTANCE,PT TOLD EMS THAT HIS LEFT LEG WAS SWOLLEN AND WEAK. HE DOES HAVE EDEMA, WARMTH NOTED TO LEFT FOOT TO LEFT GROIN AREA. PULSE NOT FELT WHEN PAPLPATED. PULSE RATE OF 62 WITH DOPPLER. - Nurses notes reviewed Nurses Notes Review: Yes - Source History Provided: Patient, EMS - Mode of Arrival Mode of Arrival: EMS - Timing Onset of Chief Complaint: 06/27/19 Came on: Gradually - Duration Duration: Constant How lon Duration: Days - Location Location: left leg swelling - Severity Severity: Moderate - Modifying Factors Worsens:: standing, movement Improves:: nothing PMH - PMH Past Medical History: Yes Past Medical History: Angina, Arthritis, Coronary Artery Disease, Diabetes, Hypertension Past Surgical History: Yes Surgical History: Other Past Surgical History Comment: HERNIA, TOES REMOVED FROM RIGHT FOOT - Family History History of Family Medical Conditions: No - Social History Does any household member use tobacco: No Alcohol Use: None Do you use any recreational Drugs:: No Lives With: Alone Lives Where: Home - infectious screening In the last 2 months have you had wt loss of >10#?: NO Have you had fever, night sweats or hemotysis?: No Have you traveled outside the country in the last 6 months?: No Isolation: Standard ROS - Review of Systems Constitutional: No Symptoms Reported, Weakness Eyes: No Symptoms Reported ENTM: No Symptoms Reported Respiratoy: No Symptoms Reported. negative: See HPI, Productive Cough, Non- Productive Cough, Moist Cough, Dry Cough, Hacking Cough, Barking Cough, Brassy Cough, Orthopnea, Short of Breath, Stridor, Wheezing, Hemoptysis, Other Cardiovascular: No Symptoms Reported. negative: See HPI, Chest Pain, Edema, Palpitations, Syncope, Cyanosis, Skin Mottling, Other Gastrointestinal/Abdominal: No Symptoms Reported. negative: See HPI, Abdominal Pain, Constipation, Diarrhea, Nausea, Vomiting, Food Intolerance, Other Genitourinary: No Symptoms Reported Neurological: No Symptoms Reported, Problems Walking (left leg pain) Musculoskeletal: No Symptoms Reported, Left, Pelvis, Leg Integumentary: No Symptoms Reported, Lesions (left lower leg with blisters with erythematous areas; edema 2+) Hematologic/Lymphatic: No Symptoms Reported. negative: See HPI, Anemia, Blood Clots, Easy Bleeding, Easy Bruising, Swollen Glands, Lymphadenopathy, Other Endocrine: No Symptoms Reported Psychiatric: No Symptoms Reported. negative: See HPI, Anxiety, Depression, Hallucinations, Excessive crying, Suicidal, Other PE - General Limitations: No Limitations General Appearance: Alert, In Distress (slight) - Head Head Exam: Normal Inspection, Atraumatic, Normocephalic - Eyes Eye exam: Normal Appearance, PERRL, EOMI. negative: Scleral Icterus, Conjunctival Injection, Nystagmus, Miosis, Mydrasis, Periorbital Swelling, Periorbital Tenderness, Other - ENT ENT Exam: Normal Exam, Normal Oropharynx, Normal External Ear Exam, Mucous Memb ranes Moist, TM's Normal Bilaterally External Ear Exam: Normal External Inspection TM/Canal Exam: Bilateral Normal Nose Exam: Normal Nose Exam Mouth Exam: Normal Inspection. negative: Drooling, Trismus, Lip Swelling, Tongue Elevation, Tongue Swelling, Laceration, Other Throat Exam: Normal Inspection - Neck Neck Exam: Normal Inspection, Full ROM, Trachea Midline. negative: Tenderness, Meningismus, Lymphadenopathy, Thyromegaly, Other - Chest Chest Inspection: Normal Inspection, Symmetric Chest Wall Rise - Respiratory Respiratory Exam: Normal Lung Sounds Bilat Respiratory Exam: Bilateral Clear to Auscultation - Cardiovascular Cardiovascular Exam: Regular Rate, Normal Rhythm, Normal Heart Sounds - Abdominal Exam Abdominal Exam: Normal Inspection, Normal Bowel Sounds, Soft, Dimnished Bowel Sounds Abdominal Tenderness: LLQ, Mild - Back Back Exam: Normal Inspection, Full ROM. negative: Tenderness, (R) CVA Tenderness, (L) CVA Tenderness, Muscle Spasm, Paraspinal Tenderness, Vertebral Tenderness, Rashes, (R) Sciatic Notch Tenderness, (L) Sciatic Notch Tendern, (R) Straight Leg Raise, (L) Straight Leg Raise, Other - Neurologic Neurological Exam: Alert, Oriented X3, CN II-XII Intact, Reflexes Normal. negative: Normal Gait (gait not tested) - Psychiatric Psychiatric Exam: Normal Affect, Normal Mood - Skin Skin Exam: Warm, Dry, Intact, Normal Color, Rash (left lower leg with swelling, erythema, blisters;toes purple; 3+ edema) - Vital Signs Vitals: Temperature 99.2 F Pulse Rate 60 Respiratory Rate 20 Blood Pressure 151/72 O2 Sat by Pulse Oximetry 99 ROR - Labs Reviewed Laboratory Results Reviewed?: Yes (All labs and x-ray results reviewed and discussed with patient) Result Diagrams: 06/29/19 09:52 06/29/19 09:52 - XRAY XRAY Interpreted by: Radiologist (Doppler US left leg: Abnormal left lower extremity venous Doppler with occlusive D) XRAY Findings: CT abdomen and pelvis: Leftlower quadrant stranding along the pelvic sidewa - Labs Reviewed Laboratory: WBC 8.5 X10^3/uL (3.6-10.0) 06/29/19 09:52 RBC 4.58 X10^6/uL (4.7-6.0) L 06/29/19 09:52 Hgb 14.1 g/dL (13.5-18.0) 06/29/19 09:52 Hct 41.9 % (42.0-54.0) L 06/29/19 09:52 MCV 91.6 fL (80.0-100.0) 06/29/19 09:52 MCH 30.8 pg (27.0-34.0) 06/29/19 09:52 MCHC 33.6 g/dL (33.0-35.0) 06/29/19 09:52 RDW 15.2 % (11.6-16.5) 06/29/19 09:52 Plt Count 151 X10^3/uL (150.0-450.0) 06/29/19 09:52 MPV 8.8 fL (7.4-11.0) 06/29/19 09:52 Neut % (Auto) 79.4 % (42.0-75.0) H 06/29/19 09:52 Lymph % (Auto) 10.8 % (21.0-51.0) L 06/29/19 09:52 [place] % (Auto) 8.6 % (0.0-13.0) 06/29/19 09:52 Eos % (Auto) 0.9 % (0.9-2.9) 06/29/19 09:52 Baso % (Auto) 0.3 % (0.2-1.0) 06/29/19 09:52 Neut # (Auto) 6.8 x10^3/uL (2.2-4.8) H 06/29/19 09:52 Lymph # (Auto) 0.9 X10^3/uL (1.3-2.9) L 06/29/19 09:52 [place] # (Auto) 0.7 x10^3/uL (0.3-0.8) 06/29/19 09:52 Eos # (Auto) 0.1 x10^3/uL (0.0-0.2) 06/29/19 09:52 Baso # (Auto) 0.0 X10^3/uL (0.0-0.1) 06/29/19 09:52 Absolute Nucleated RBC 0.1 /100WBC 06/29/19 09:52 D-Dimer > 5000 ng/mL (0-400) H* 06/29/19 09:52 Sodium 137 mmol/L (136-145) 06/29/19 09:52 Corrected Sodium 139 mmol/L (136-145) 06/29/19 09:52 Potassium 3.7 mmol/L (3.5-5.1) 06/29/19 09:52 Chloride 101 mmol/L (98-107) 06/29/19 09:52 Carbon Dioxide 24.2 mmol/L (21-32) 06/29/19 09:52 BUN 32 mg/dL (7-18) H 06/29/19 09:52 Creatinine 1.42 mg/dL (0.70-1.30) H 06/29/19 09:52 Est GFR (MDRD) Af Amer > 60 (>60) 06/29/19 09:52 Est GFR (MDRD) Non-Af 51 (>60) L 06/29/19 09:52 Glucose 181 mg/dL (65-99) H 06/29/19 09:52 Calcium 8.5 mg/dL (8.5-10.1) 06/29/19 09:52 Corrected Calcium 9.1 mg/dL (8.5-10.1) 06/29/19 09:52 Total Bilirubin 1.80 mg/dL (0.2-1.0) H 06/29/19 09:52 AST 11 Units/L (15-37) L 06/29/19 09:52 ALT 12 Units/L (12-78) 06/29/19 09:52 Alkaline Phosphatase 66 Units/L (46-116) 06/29/19 09:52 B-Natriuretic Peptide 83.1 pg/mL (0-79) H 06/29/19 09:52 Total Protein 6.5 g/dL (6.4-8.2) 06/29/19 09:52 Albumin 3.2 g/dL (3.4-5.0) L 06/29/19 09:52 Globulin 3.3 g/dL (2.5-4.5) 06/29/19 09:52 Albumin/Globulin Ratio 1.0 Ratio (1.1-2.1) L 06/29/19 09:52 Amylase 17 Units/L (25-115) L 06/29/19 09:52 Lipase 132 Units/L (73-393) 06/29/19 09:52 Opioid - Opioid Risk Tool Total: 0 Total Score Risk Category: Low Risk - Diagnosis Discharge Problem: Diverticulosis of colon Deep venous thrombosis of left femoral vein Qualifiers: Chronicity: acute Qualified Code(s): I82.412 - Acute embolism and thrombosis of left femoral vein Diabetes Qualifiers: Diabetes mellitus type: type 2 Diabetes mellitus complication status: with kidney complications Hypertension Qualifiers: Hypertension type: essential hypertension Qualified Code(s): I10 - Essential (primary) hypertension [place] Qualifiers: Cholecystitis presence: without cholecystitis - Discharge Plan Disposition: ADMITTED INPATIENT Condition: Stable - Follow ups/Referrals Follow ups/Referrals: NFD,None [Primary Care Provider] - 3 days - Instructions
[2019-06-29] MEDS ORDERED: LASIX IVP ONE (09:43)
[2019-06-29] MEDS ORDERED: TORADOL 30 MG VIAL IVP ONE (10:01)
[2019-06-29 10:03] LABS: BASOPHILS % (AUTO) 0.3 % (0.2-1.0); EOSINOPHILS # (AUTO) 0.1 x10^3/uL (0.0-0.2); EOSINOPHILS % (AUTO) 0.9 % (0.9-2.9); HEMATOCRIT 41.9 % (42.0-54.0); HEMOGLOBIN 14.1 g/dL (13.5-18.0); LYMPHOCYTES # (AUTO) 0.9 X10^3/uL (1.3-2.9); LYMPHOCYTES % (AUTO) 10.8 % (21.0-51.0); MEAN CORPUSCULAR HEMOGLOBIN 30.8 pg (27.0-34.0); MEAN CORPUSCULAR HGB CONC 33.6 g/dL (33.0-35.0); MEAN CORPUSCULAR VOLUME 91.6 fL (80.0-100.0); MEAN PLATELET VOLUME 8.8 fL (7.4-11.0); MONOCYTES # (AUTO) 0.7 x10^3/uL (0.3-0.8); MONOCYTES % (AUTO) 8.6 % (0.0-13.0); NEUTROPHILS # (AUTO) 6.8 x10^3/uL (2.2-4.8); NEUTROPHILS % (AUTO) 79.4 % (42.0-75.0); PLATELET COUNT 151 X10^3/uL (150.0-450.0); RED BLOOD COUNT 4.58 X10^6/uL (4.7-6.0); RED CELL DISTRIBUTION WIDTH 15.2 % (11.6-16.5); WHITE BLOOD COUNT 8.5 X10^3/uL (3.6-10.0)
[2019-06-29] MEDS ORDERED: LASIX ONE (10:09)
[2019-06-29] MEDS ORDERED: TORADOL 30 MG VIAL ONE (10:10)
[2019-06-29 10:16] LABS: ALANINE AMINOTRANSFERASE 12 Units/L (12-78); ALBUMIN 3.2 g/dL (3.4-5.0); ALKALINE PHOSPHATASE 66 Units/L (46-116); AMYLASE 17 Units/L (25-115); ASPARTATE AMINO TRANSFERASE 11 Units/L (15-37); BLOOD UREA NITROGEN 32 mg/dL (7-18); CALCIUM 8.5 mg/dL (8.5-10.1); CARBON DIOXIDE 24.2 mmol/L (21-32); CHLORIDE 101 mmol/L (98-107); COR CA(FOR HYPOALB) 9.1 mg/dL (8.5-10.1); COR NA(FOR HYPERGLY) 139 mmol/L (136-145); CREATININE 1.42 mg/dL (0.70-1.30); LIPASE 132 Units/L (73-393); SODIUM 137 mmol/L (136-145); TOTAL PROTEIN 6.5 g/dL (6.4-8.2); eGFR NON BLACK RACES 51 (>60)
--- NOTE | 2019-06-29 11:33 | CT ---
HISTORY: Left lower abdominal pain Study: CT abdomen and pelvis without contrast Comparison: None Technique: Multiple axial images of the abdomen and pelvis were obtained without IV contrast. Dose reduction techniques including Automated Exposure Control (AEC) and adjustment of mA and kV were utilized. Findings: Please note evaluation is limited without use of IV contrast. There is cardiomegaly with coronary atherosclerotic disease. The lung bases are clear. The liver, spleen, pancreas, and adrenal glands are unremarkable in their unenhanced CT appearance. Tiny gallstones are suspected. No renal calculi or obstructive uropathy identified. No free intraperitoneal air. No evidence of intestinal obstruction or inflammation. There is moderate constipation with diverticulosis of the descending sigmoid colon. Appendix is normal. There is left lower quadrant stranding along the inferior pericolic gutter and pelvic sidewall. The left common iliac vein, common femoral vein, and superficial femoral vein appear thickened and hyperdense. Underlying thrombus not excluded. There is soft tissue edema seen circumferentially in left upper thigh. Bony pelvis appears intact without acute fracture. Scattered calcified plaque seen in the aorta. No pathologically enlarged lymph nodes are identified. Prostate gland is mildly enlarged. Urinary bladder is normal. IMPRESSION: 1. Left lower quadrant stranding along the pelvic sidewall and inferior pericolic gutter with hyperdense, enlarged appearance of the left common iliac vein, common femoral vein and superficial femoral vein. Underlying venous thrombosis is not excluded. There is associated soft tissue edema seen circumferentially in the left upper thigh with no acute osseous abnormality identified. 2. Small gallstones are suspected. 3. Colonic diverticulosis and constipation. 4. Enlarged prostate gland. Reported By:
--- NOTE | 2019-06-29 11:35 | CT ---
HISTORY: Left hip pain, fall Study: CT pelvis without contrast Comparison: CT abdomen/pelvis same day Technique: Multiple axial images of pelvis were obtained without the administration of IV contrast. Dose reduction techniques including Automated Exposure Control (AEC) and adjustment of mA and kV were utilized. FINDINGS/IMPRESSION: Please refer to abdomen/pelvis CT report as this redundant scan provides no additional diagnostic value. Reported By:
--- NOTE | 2019-06-29 12:53 | VAS ---
HISTORY: Left leg pain. Study: Left lower extremity venous Doppler Comparison: None. TECHNIQUE: Real-time dynamic grayscale, color flow and complete spectral Doppler ultrasound examination of the major deep venous structures were obtained of the left lower extremity. FINDINGS: Left lower extremity: Real-time examination shows occlusive thrombus within the common femoral, superficial femoral, popliteal and anterior tibial veins. There is absent compressibility throughout. Color flow imaging shows no blood flow within the major vessels. Doppler examination shows no venous waveforms. IMPRESSION: 1. Abnormal left lower extremity venous Doppler, with occlusive DVT from the left common femoral vein to the anterior tibial vein. Reported By:
[2019-06-29] MEDS ORDERED: HEPARIN SODIUM IN D5W 25,000 UNITS/500 ML BAG IV PRN ×2 (13:51→16:08)
[2019-06-29 13:57] LABS: BILIRUBIN,URINE NEGATIVE (NEGATIVE); BLOOD/HEMOGLOBIN,URINE NEGATIVE (NEGATIVE); GLUCOSE, URINE 4+ (NEGATIVE); KETONES,URINE NEGATIVE (NEGATIVE); LEUKOCYTE ESTERASE ,URINE 2+ (NEGATIVE); NITRITES,URINE NEGATIVE (NEGATIVE); PROTEIN,URINE NEGATIVE (NEGATIVE); UROBILINOGEN,URINE NORMAL (NORMAL)
[2019-06-29 14:04] LABS: APPEARANCE,URINE CLEAR (CLEAR); COLOR,URINE YELLOW (YELLOW)
[2019-06-29 14:05] LABS: BACTERIA,URINE NEGATIVE /HPF (NEGATIVE); RBC,URINE NONE SEEN /HPF (0-3); SQUAMOUS EPITHELIAL CELL,UR RARE /HPF (NEGATIVE)
[2019-06-29] MEDS ORDERED: HEPARIN SODIUM INJ 5000 UNITS ONE ×2 (14:06→23:20)
[2019-06-29] MEDS ORDERED: HEPARIN SODIUM IN D5W 25,000 UNITS/500 ML BAG IV ONE ×2 (14:07→14:14)
[2019-06-29] MEDS: NS 1000 ML 1,000 ML IV SCH (14:26)
[2019-06-29] MEDS ORDERED: NORVASC TAB 10 MG PO SCH (15:00)
[2019-06-29] MEDS: HumuLIN R SC PRN ×2 (17:20→21:46)
[2019-06-29] MEDS: HEPARIN SODIUM IN D5W 25,000 UNITS/500 ML BAG IV PRN (18:02)
[2019-06-29] MEDS ORDERED: APRESOLINE TAB 25 MG PO SCH (21:00)
[2019-06-29] MEDS ORDERED: GLUCOPHAGE PO SCH (21:00)
[2019-06-29] MEDS ORDERED: GLUCOTROL PO SCH (21:00)
[2019-06-29] MEDS ORDERED: K-RIDER 10 MEQ/NS 100 ML 10 MEQ/100 ML BAG IV PRN (21:34)
[2019-06-29] MEDS ORDERED: POTASSIUM CHL 60 MEQ/NS 0.45% 500 ML IV PRN (21:34)
[2019-06-29] MEDS ORDERED: KLOR-CON PO PRN (21:34)
[2019-06-29] MEDS ORDERED: POTASSIUM CHLORIDE LIQ 20 MEQ UDC PO PRN (21:34)
[2019-06-29] MEDS ORDERED: POTASSIUM CHL 40 MEQ/NS 0.45% 500 ML IV PRN (21:34)
[2019-06-29] MEDS ORDERED: MICRO K EXTEN CAP 10 MEQ PO PRN (21:34)
[2019-06-29] MEDS ORDERED: K-DUR TAB 20 MEQ PO ONE (21:40)
[2019-06-29] MEDS: CRESTOR TAB 10 MG PO SCH (21:44)
[2019-06-29] MEDS: SNACK - Diabetic Appropriate PO SCH (21:44)
[2019-06-29] MEDS: K-DUR TAB 20 MEQ PO PRN (21:45)
[2019-06-29] MEDS ORDERED: HEPARIN SODIUM INJ 5000 UNITS IVP ONE (23:17)
[2019-06-30] MEDS ORDERED: NS 1000 ML 1,000 ML ONE ×2 (00:13→10:52)
[2019-06-30] MEDS: MAGNESIUM SULFATE 1 GRAM/100 mL PREMIX 1 GM/100 ML BAG IV PRN ×2 (00:15→01:16)
[2019-06-30] MEDS: NS 1000 ML 1,000 ML IV SCH ×2 (00:22→14:34)
[2019-06-30 06:06] LABS: BASOPHILS % (AUTO) 0.5 % (0.2-1.0); EOSINOPHILS # (AUTO) 0.2 x10^3/uL (0.0-0.2); EOSINOPHILS % (AUTO) 3.6 % (0.9-2.9); HEMATOCRIT 35.9 % (42.0-54.0); LYMPHOCYTES % (AUTO) 15.8 % (21.0-51.0); MEAN CORPUSCULAR HEMOGLOBIN 30.9 pg (27.0-34.0); MEAN CORPUSCULAR HGB CONC 33.7 g/dL (33.0-35.0); MEAN CORPUSCULAR VOLUME 91.8 fL (80.0-100.0); MEAN PLATELET VOLUME 9.4 fL (7.4-11.0); MONOCYTES # (AUTO) 0.6 x10^3/uL (0.3-0.8); MONOCYTES % (AUTO) 9.4 % (0.0-13.0); NEUTROPHILS # (AUTO) 4.4 x10^3/uL (2.2-4.8); NEUTROPHILS % (AUTO) 70.7 % (42.0-75.0); PLATELET COUNT 148 X10^3/uL (150.0-450.0); RED BLOOD COUNT 3.91 X10^6/uL (4.7-6.0); RED CELL DISTRIBUTION WIDTH 14.9 % (11.6-16.5); WHITE BLOOD COUNT 6.2 X10^3/uL (3.6-10.0)
[2019-06-30 06:16] LABS: BLOOD UREA NITROGEN 34 mg/dL (7-18); CALCIUM 8.1 mg/dL (8.5-10.1); CARBON DIOXIDE 22.5 mmol/L (21-32); CHLORIDE 104 mmol/L (98-107); COR NA(FOR HYPERGLY) 139 mmol/L (136-145); CREATININE 1.18 mg/dL (0.70-1.30); SODIUM 137 mmol/L (136-145); eGFR NON BLACK RACES > 60 (>60)
[2019-06-30 06:26] LABS: HEMOGLOBIN 12.1 g/dL (13.5-18.0)
[2019-06-30] MEDS ORDERED: ACTOS PO SCH (09:00)
[2019-06-30] MEDS: MILK OF MAGNESIA PO SCH (09:44)
[2019-06-30] MEDS: K-DUR TAB 20 MEQ PO PRN (09:45)
--- NOTE | 2019-06-30 10:18 | DR.H&P ---
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 He reports increasing difficulty using his left leg compared to baseline(uses wheelchair d/t deficits form prior stroke) for the past two days that including pain and swelling of his LLE up to his groin. He reportedly fell at home(did not hit head) and was unable to get up without assistance from EMS. He told EMS on arrival and was noted significant left leg swelling. Patient states he is a pt of Dr. Lopez, [facility]. Denies fevers, chills, chest pain, shortness of breath, abdominal pain, hematuria/melena, diarrhea/constipation, or any recent trauma to his leg. He does smoke(cigars), drinks beer on occasions, denies illicit drug use. Past Medical History Past Medical History: Angina, Arthritis, Coronary Artery Disease, CVA, Diabetes and Hypertension Past Surgical History Surgical History: Other Social History Does patient currently use any type of tobacco product: Yes Have you used tobacco products in the last 12 months: Yes Type of Tobacco Use: Cigars Does any household member use tobacco: Yes Alcohol Use: Occasionally and DAILY Drug Use: None Medications Home Medications: No Known Drug Allergies Allergy (Verified 01/10/19 09:15) Labs Result Diagrams: 06/30/19 05:35 06/30/19 05:35 Labs: Laboratory WBC 6.2 X10^3/uL (3.6-10.0) 06/30/19 05:35 RBC 3.91 X10^6/uL (4.7-6.0) L 06/30/19 05:35 Hgb 12.1 g/dL (13.5-18.0) L D 06/30/19 05:35 Hct 35.9 % (42.0-54.0) L 06/30/19 05:35 MCV 91.8 fL (80.0-100.0) 06/30/19 05:35 MCH 30.9 pg (27.0-34.0) 06/30/19 05:35 MCHC 33.7 g/dL (33.0-35.0) 06/30/19 05:35 RDW 14.9 % (11.6-16.5) 06/30/19 05:35 Plt Count 148 X10^3/uL (150.0-450.0) L 06/30/19 05:35 MPV 9.4 fL (7.4-11.0) 06/30/19 05:35 Neut % (Auto) 70.7 % (42.0-75.0) 06/30/19 05:35 Lymph % (Auto) 15.8 % (21.0-51.0) L 06/30/19 05:35 [place] % (Auto) 9.4 % (0.0-13.0) 06/30/19 05:35 Eos % (Auto) 3.6 % (0.9-2.9) H 06/30/19 05:35 Baso % (Auto) 0.5 % (0.2-1.0) 06/30/19 05:35 Neut # (Auto) 4.4 x10^3/uL (2.2-4.8) 06/30/19 05:35 Lymph # (Auto) 1.0 X10^3/uL (1.3-2.9) L 06/30/19 05:35 [place] # (Auto) 0.6 x10^3/uL (0.3-0.8) 06/30/19 05:35 Eos # (Auto) 0.2 x10^3/uL (0.0-0.2) 06/30/19 05:35 Baso # (Auto) 0.0 X10^3/uL (0.0-0.1) 06/30/19 05:35 Absolute Nucleated RBC 0.1 /100WBC 06/30/19 05:35 PT 15.0 SECONDS (11.8-14.3) 06/29/19 15:55 INR Target Range - 06/29/19 15:55 INR 1.23 (0.8-1.3) 06/29/19 15:55 APTT 124.2 SECONDS (22.9-36.5) H 06/30/19 05:35 PTT Comment - 06/30/19 05:35 D-Dimer > 5000 ng/mL (0-400) H* 06/29/19 09:52 Sodium 137 mmol/L (136-145) 06/30/19 05:35 Corrected Sodium 139 mmol/L (136-145) 06/30/19 05:35 Potassium 3.6 mmol/L (3.5-5.1) 06/30/19 05:35 Chloride 104 mmol/L (98-107) 06/30/19 05:35 Carbon Dioxide 22.5 mmol/L (21-32) 06/30/19 05:35 BUN 34 mg/dL (7-18) H 06/30/19 05:35 Creatinine 1.18 mg/dL (0.70-1.30) 06/30/19 05:35 Est GFR (MDRD) Af Amer > 60 (>60) 06/30/19 05:35 Est GFR (MDRD) Non-Af > 60 (>60) 06/30/19 05:35 Glucose 183 mg/dL (65-99) H 06/30/19 05:35 POC Glucose (mg/dL) 231 mg/dL (65-99) H 06/29/19 20:47 Calcium 8.1 mg/dL (8.5-10.1) L 06/30/19 05:35 Corrected Calcium 9.1 mg/dL (8.5-10.1) 06/29/19 09:52 Magnesium 2.3 mg/dL (1.7-2.9) 06/30/19 05:35 Total Bilirubin 1.80 mg/dL (0.2-1.0) H 06/29/19 09:52 AST 11 Units/L (15-37) L 06/29/19 09:52 ALT 12 Units/L (12-78) 06/29/19 09:52 Alkaline Phosphatase 66 Units/L (46-116) 06/29/19 09:52 B-Natriuretic Peptide 83.1 pg/mL (0-79) H 06/29/19 09:52 Total Protein 6.5 g/dL (6.4-8.2) 06/29/19 09:52 Albumin 3.2 g/dL (3.4-5.0) L 06/29/19 09:52 Globulin 3.3 g/dL (2.5-4.5) 06/29/19 09:52 Albumin/Globulin Ratio 1.0 Ratio (1.1-2.1) L 06/29/19 09:52 Amylase 17 Units/L (25-115) L 06/29/19 09:52 Lipase 132 Units/L (73-393) 06/29/19 09:52 Specimen Type Random urine 06/29/19 13:51 Urine Color Yellow (YELLOW) 06/29/19 13:51 Urine Appearance Clear (CLEAR) 06/29/19 13:51 Urine pH 5.0 (5.0 - 8.0) 06/29/19 13:51 Ur Specific [place] 1.015 (1.000-1.030) 06/29/19 13:51 Urine Protein Negative (NEGATIVE) 06/29/19 13:51 Urine Glucose (UA) 4+ (NEGATIVE) 06/29/19 13:51 Urine Ketones Negative (NEGATIVE) 06/29/19 13:51 Urine Occult Blood Negative (NEGATIVE) 06/29/19 13:51 Urine Nitrite Negative (NEGATIVE) 06/29/19 13:51 Urine Bilirubin Negative (NEGATIVE) 06/29/19 13:51 Urine Urobilinogen Normal (NORMAL) 06/29/19 13:51 Ur Leukocyte Esterase 2+ (NEGATIVE) 06/29/19 13:51 Urine RBC None seen /HPF (0-3) 06/29/19 13:51 Urine WBC 3-5 /HPF (0-5) 06/29/19 13:51 Ur Squamous Epith Cells Rare /HPF (NEGATIVE) 06/29/19 13:51 Urine Bacteria Negative /HPF (NEGATIVE) 06/29/19 13:51 Ur Culture Indicated? No/not indicated 06/29/19 13:51 Review of Systems Constitutional: Weakness (LLE); denies Fever and Chills Eyes: No Symptoms Reported ENT: No Symptoms Reported Respiratory: No Symptoms Reported Cardiovascular: Edema (LLE); denies Chest Pain, Palpitations and Light Headedness Gastrointestinal: No Symptoms Reported Genitourinary: No Symptoms Reported Musculoskeletal: Leg Pain (LLE) Skin: No Symptoms Reported Neurological: No Symptoms Reported Physical Exam Vital Signs: Temperature 98.3 F Pulse Rate 61 Respiratory Rate 22 Blood Pressure 116/61 O2 Sat by Pulse Oximetry 97 Oriented: Normal Eyes: Normal Ear: Normal Nose: Normal Throat: Normal Respiratory: Clear Throughout Cardiovascular: Normal Auscultation: Bowel Sounds: Normal Palpation: Normal Tenderness: Normal Skin: Normal Musculoskeletal: Leg (LLE warm to touch, non-tender on palpation), Swelling (3+ pitting edema of LLE. Edema of proximal LLE noted as well. ) and Pulse Deficit (LLE) Psychiatric: Normal Mood Description: Calm Speech Pattern: Clear Assessment/Plan (1) Deep venous thrombosis of left femoral vein: Qualifiers: Chronicity: acute Qualified Code(s): I82.412 - Acute embolism and thrombosis of left femoral vein Status: Acute Plan: -Will consult surgery and order CTA aorta w/ runoff d/t difficulty obtaining distal pulses and possible underlying PVD. If negative will just need treatment of DVT. -IV heparin gtt -Venous duplex(06/29/19):occlusive thrombus within the common femoral, superficial femoral, popliteal and anterior tibial veins. There is absent compressibility throughout. Color flow imaging shows no blood flow within the major vessels. Doppler examination shows no venous waveforms. -Continue to monitor daily labs. (2) Diabetes: Qualifiers: Diabetes mellitus complication status: with other specified complication Diabetes mellitus fpc insulin use: without rn long term care use Diabetes mellitus type: type 2 Qualified Code(s): E11.69 - Type 2 diabetes mellitus with other specified complication Status: Acute Plan: A1c(04/19/19):6.3% Continue home medications (3) Hypertension: Qualifiers: Hypertension type: essential hypertension Qualified Code(s): I10 - Essential (primary) hypertension Status: Acute Plan: Continue Amlodipine 10mg (4) Hyperlipidemia: Qualifiers: Hyperlipidemia type: mixed hyperlipidemia Qualified Code(s): E78.2 - Mixed hyperlipidemia Status: Acute Plan: Continue Rosuvastatin 20mg.
[2019-06-30] MEDS ORDERED: NORCO 5/325 MG TAB PO ONE (11:13)
[2019-06-30] MEDS ORDERED: NORCO 5/325 MG TAB ONE (11:14)
[2019-06-30] MEDS: HumuLIN R SC PRN ×2 (13:02→16:29)
[2019-06-30] MEDS: HEPARIN SODIUM IN D5W 25,000 UNITS/500 ML BAG IV PRN (15:44)
[2019-06-30] MEDS: SNACK - Diabetic Appropriate PO SCH (20:00)
[2019-06-30] MEDS: NEURONTIN CAP 400 MG PO SCH (21:25)
[2019-06-30] MEDS: CRESTOR TAB 10 MG PO SCH (21:25)
[2019-06-30] MEDS: COLACE CAP 100 MG PO SCH (21:25)
[2019-07-01] MEDS ORDERED: HEPARIN SODIUM INJ 5000 UNITS IVP ONE (02:42)
[2019-07-01] MEDS ORDERED: HEPARIN SODIUM INJ 5000 UNITS ONE (02:45)
[2019-07-01 06:19] LABS: BASOPHILS % (AUTO) 0.5 % (0.2-1.0); EOSINOPHILS # (AUTO) 0.3 x10^3/uL (0.0-0.2); EOSINOPHILS % (AUTO) 5.1 % (0.9-2.9); HEMOGLOBIN 12.1 g/dL (13.5-18.0); LYMPHOCYTES # (AUTO) 0.8 X10^3/uL (1.3-2.9); LYMPHOCYTES % (AUTO) 16.7 % (21.0-51.0); MEAN CORPUSCULAR HEMOGLOBIN 30.9 pg (27.0-34.0); MEAN CORPUSCULAR HGB CONC 33.7 g/dL (33.0-35.0); MEAN CORPUSCULAR VOLUME 91.6 fL (80.0-100.0); MONOCYTES # (AUTO) 0.4 x10^3/uL (0.3-0.8); MONOCYTES % (AUTO) 8.4 % (0.0-13.0); NEUTROPHILS # (AUTO) 3.4 x10^3/uL (2.2-4.8); NEUTROPHILS % (AUTO) 69.3 % (42.0-75.0); PLATELET COUNT 145 X10^3/uL (150.0-450.0); RED BLOOD COUNT 3.93 X10^6/uL (4.7-6.0); RED CELL DISTRIBUTION WIDTH 14.8 % (11.6-16.5)
[2019-07-01 06:32] LABS: BLOOD UREA NITROGEN 27 mg/dL (7-18); CALCIUM 8.3 mg/dL (8.5-10.1); CARBON DIOXIDE 23.4 mmol/L (21-32); CHLORIDE 104 mmol/L (98-107); COR NA(FOR HYPERGLY) 139 mmol/L (136-145); CREATININE 0.95 mg/dL (0.70-1.30); SODIUM 138 mmol/L (136-145); eGFR NON BLACK RACES > 60 (>60)
--- NOTE | 2019-07-01 07:46 | CT ---
History: DVT Study: CTA aorta with runoff without and then with 150 mL Omnipaque 350 IV contrast. Sagittal and coronal reformations were provided. Three-dimensional MIPS were did displayed in multiple degrees of obliquity. Findings: There is extensive diffuse diverticulosis with stranding of fat planes about the sigmoid colon. The prostate is enlarged measuring at least 5.4 cm transverse diameter. The liver and spleen and pancreas are unremarkable. There are several small left renal calculi and a single right small calculus. There is no hydronephrosis. The gallbladder is contracted. There is diffuse atherosclerotic calcification. There is no aortic aneurysm. The iliac arteries and common iliac arteries and common femoral arteries and superficial femoral arteries and profundus femoral arteries are widely patent. The popliteal arteries are patent. On the left runoff is primarily via the posterior tibial artery. The peroneal artery is atretic and there is intermittent multiple areas of occlusion in the anterior tibial artery. On the right the anterior tibial artery has severe occlusive disease proximally with multiple areas of intermittent occlusion in severe narrowing. The peroneal artery is patent but small in caliber. There are intermittent focal areas of severe clues of disease in the distal posterior tibial artery. The dorsalis pedis is not visualized on the left and a small on the right. Impression: 1. 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 2. Diffuse colonic diverticulosis and apparent sigmoid diverticulitis 3. Prostatic enlargement and small bilateral renal calculi without hydronephrosis Reported By:
[2019-07-01] MEDS: MILK OF MAGNESIA PO SCH (08:20)
[2019-07-01] MEDS: NEURONTIN CAP 400 MG PO SCH ×2 (08:20→21:23)
--- NOTE | 2019-07-01 08:47 | PCM.PROG ---
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 He reports increasing difficulty using his left leg compared to baseline(uses wheelchair d/t deficits form prior stroke involving left sided UE and LE weakness) for the past two days that including pain and swelling of his LLE up to his groin. He reportedly fell at home(did not hit head) and was unable to get up without assistance from EMS, which noted significant left leg swelling. Patient states he is a pt of Dr. Lopez, he is followed by the [facility]. Venous duplex(06/29/19):occlusive thrombus within the common femoral, superficial femoral, popliteal and anterior tibial veins. CTA aorta w/ runoff(06/30/19):1. 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 2. Diffuse colonic diverticu losis and apparent sigmoid diverticulitis. 3. Prostatic enlargement and small bilateral renal calculi without hydronephrosis. -Pt did well yesterday and overnight. He is tolerating po intake, had 2 bowel movements. He says that he has follow up appointment with [facility] in [place] on 07/05. Has transport that will take him there. Past Medical Family Social History Past Med/Fam/Surg Hx: No changes since H&P Allergies: Allergies No Known Drug Allergies Allergy (Verified 01/10/19 09:15) Review of Systems ROS: No change since H&P Vital Signs and I&O's Vital Signs: Temperature 98.1 F Pulse Rate 55 Respiratory Rate 22 Blood Pressure 150/75 O2 Sat by Pulse Oximetry 96 Intake and Output: Intake & Output 06/28/19 06/29/19 06/30/19 07/01/19 23:59 23:59 23:59 23:59 Intake Total 1594 / 1594 3834 / 3834 686 / 686 Output Total 450 / 450 1576 / 1576 700 / 700 Balance 1144 / 1144 2258 / 2258 -14 / -14 Physical Exam Oriented: Normal Eyes: Normal Ear: Normal Nose: Normal Throat: Normal Cardiovascular: Normal Auscultation: Bowel Sounds: Normal Tenderness: Normal Skin: Normal Musculoskeletal: Leg (LLE warm to touch, non-tender on palpation), Swelling (3+ pitting edema of LLE. Edema of proximal LLE noted as well. ) and Pulse Deficit (LLE) Psychiatric: Normal Mood Description: Calm Speech Pattern: Clear Laboratory and Diagnostics Result Diagrams: 07/01/19 05:40 07/01/19 05:40 Labs: Laboratory WBC 5.0 X10^3/uL (3.6-10.0) 07/01/19 05:40 RBC 3.93 X10^6/uL (4.7-6.0) L 07/01/19 05:40 Hgb 12.1 g/dL (13.5-18.0) L 07/01/19 05:40 Hct 36.0 % (42.0-54.0) L 07/01/19 05:40 MCV 91.6 fL (80.0-100.0) 07/01/19 05:40 MCH 30.9 pg (27.0-34.0) 07/01/19 05:40 MCHC 33.7 g/dL (33.0-35.0) 07/01/19 05:40 RDW 14.8 % (11.6-16.5) 07/01/19 05:40 Plt Count 145 X10^3/uL (150.0-450.0) L 07/01/19 05:40 MPV 9.0 fL (7.4-11.0) 07/01/19 05:40 Neut % (Auto) 69.3 % (42.0-75.0) 07/01/19 05:40 Lymph % (Auto) 16.7 % (21.0-51.0) L 07/01/19 05:40 [place] % (Auto) 8.4 % (0.0-13.0) 07/01/19 05:40 Eos % (Auto) 5.1 % (0.9-2.9) H 07/01/19 05:40 Baso % (Auto) 0.5 % (0.2-1.0) 07/01/19 05:40 Neut # (Auto) 3.4 x10^3/uL (2.2-4.8) 07/01/19 05:40 Lymph # (Auto) 0.8 X10^3/uL (1.3-2.9) L 07/01/19 05:40 [place] # (Auto) 0.4 x10^3/uL (0.3-0.8) 07/01/19 05:40 Eos # (Auto) 0.3 x10^3/uL (0.0-0.2) H 07/01/19 05:40 Baso # (Auto) 0.0 X10^3/uL (0.0-0.1) 07/01/19 05:40 Absolute Nucleated RBC 0.0 /100WBC 07/01/19 05:40 PT 15.0 SECONDS (11.8-14.3) 06/29/19 15:55 INR Target Range - 06/29/19 15:55 INR 1.23 (0.8-1.3) 06/29/19 15:55 APTT 60.0 SECONDS (22.9-36.5) H 07/01/19 01:58 PTT Comment - 07/01/19 01:58 D-Dimer > 5000 ng/mL (0-400) H* 06/29/19 09:52 Sodium 138 mmol/L (136-145) 07/01/19 05:40 Corrected Sodium 139 mmol/L (136-145) 07/01/19 05:40 Potassium 4.0 mmol/L (3.5-5.1) 07/01/19 05:40 Chloride 104 mmol/L (98-107) 07/01/19 05:40 Carbon Dioxide 23.4 mmol/L (21-32) 07/01/19 05:40 BUN 27 mg/dL (7-18) H 07/01/19 05:40 Creatinine 0.95 mg/dL (0.70-1.30) 07/01/19 05:40 Est GFR (MDRD) Af Amer > 60 (>60) 07/01/19 05:40 Est GFR (MDRD) Non-Af > 60 (>60) 07/01/19 05:40 Glucose 162 mg/dL (65-99) H 07/01/19 05:40 POC Glucose (mg/dL) 154 mg/dL (65-99) H 07/01/19 05:59 Calcium 8.3 mg/dL (8.5-10.1) L 07/01/19 05:40 Corrected Calcium 9.1 mg/dL (8.5-10.1) 06/29/19 09:52 Magnesium 2.3 mg/dL (1.7-2.9) 06/30/19 05:35 Total Bilirubin 1.80 mg/dL (0.2-1.0) H 06/29/19 09:52 AST 11 Units/L (15-37) L 06/29/19 09:52 ALT 12 Units/L (12-78) 06/29/19 09:52 Alkaline Phosphatase 66 Units/L (46-116) 06/29/19 09:52 B-Natriuretic Peptide 83.1 pg/mL (0-79) H 06/29/19 09:52 Total Protein 6.5 g/dL (6.4-8.2) 06/29/19 09:52 Albumin 3.2 g/dL (3.4-5.0) L 06/29/19 09:52 Globulin 3.3 g/dL (2.5-4.5) 06/29/19 09:52 Albumin/Globulin Ratio 1.0 Ratio (1.1-2.1) L 06/29/19 09:52 Amylase 17 Units/L (25-115) L 06/29/19 09:52 Lipase 132 Units/L (73-393) 06/29/19 09:52 Specimen Type Random urine 06/29/19 13:51 Urine Color Yellow (YELLOW) 06/29/19 13:51 Urine Appearance Clear (CLEAR) 06/29/19 13:51 Urine pH 5.0 (5.0 - 8.0) 06/29/19 13:51 Ur Specific [place] 1.015 (1.000-1.030) 06/29/19 13:51 Urine Protein Negative (NEGATIVE) 06/29/19 13:51 Urine Glucose (UA) 4+ (NEGATIVE) 06/29/19 13:51 Urine Ketones Negative (NEGATIVE) 06/29/19 13:51 Urine Occult Blood Negative (NEGATIVE) 06/29/19 13:51 Urine Nitrite Negative (NEGATIVE) 06/29/19 13:51 Urine Bilirubin Negative (NEGATIVE) 06/29/19 13:51 Urine Urobilinogen Normal (NORMAL) 06/29/19 13:51 Ur Leukocyte Esterase 2+ (NEGATIVE) 06/29/19 13:51 Urine RBC None seen /HPF (0-3) 06/29/19 13:51 Urine WBC 3-5 /HPF (0-5) 06/29/19 13:51 Ur Squamous Epith Cells Rare /HPF (NEGATIVE) 06/29/19 13:51 Urine Bacteria Negative /HPF (NEGATIVE) 06/29/19 13:51 Ur Culture Indicated? No/not indicated 06/29/19 13:51 Plan (1) Deep venous thrombosis of left femoral vein: Status: Acute Qualifiers: Chronicity: acute Qualified Code(s): I82.412 - Acute embolism and thrombosis of left femoral vein Plan: -IV heparin gtt, will likely be converting to po medication after surgery recs. -Venous duplex(06/29/19):occlusive thrombus within the common femoral, superficial femoral, popliteal and anterior tibial veins. -Continue to monitor daily labs. (2) PVD (peripheral vascular disease): Status: Acute Plan: -Surgery consulted, will likely need referral to vascular outpt. -CTA aorta w/ runoff(06/30/19):1. 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 (3) Diabetes: Status: Acute Qualifiers: Diabetes mellitus complication status: with other specified complication Diabetes mellitus usp insulin use: without usp use Diabetes mellitus type: type 2 Qualified Code(s): E11.69 - Type 2 diabetes mellitus with other specified complication Plan: A1c(04/19/19):6.3% Continue home medications, consider starting low dose Lisinopril on d/c. (4) Hypertension: Status: Acute Qualifiers: Hypertension type: essential hypertension Qualified Code(s): I10 - Essential (primary) hypertension Plan: Continue Amlodipine 10mg (5) Hyperlipidemia: Status: Acute Qualifiers: Hyperlipidemia type: mixed hyperlipidemia Qualified Code(s): E78.2 - Mixed hyperlipidemia Plan: Continue Rosuvastatin 20mg. (6) Diverticulosis of colon: Status: Acute Plan: Noted on CT A/P, however CTA aorta w/ runoff commented on possible diverticulitis. Surgery has been consulted, will f/u on interpretation and recs. (7) BPH (benign prostatic hyperplasia): Status: Acute Qualifiers: Lower urinary tract symptom presence: unspecified whether lower urinary tract symptoms present Qualified Code(s): N40.0 - Benign prostatic hyperplasia without lower urinary tract symptoms Plan: Noted on CT imaging, non-obstructive.
[2019-07-01] MEDS ORDERED: GLUCOTROL PO SCH (13:00)
[2019-07-01] MEDS: APRESOLINE TAB 25 MG PO SCH ×2 (13:03→21:22)
[2019-07-01] MEDS: HEPARIN SODIUM IN D5W 25,000 UNITS/500 ML BAG IV PRN (15:14)
[2019-07-01] MEDS: SNACK - Diabetic Appropriate PO SCH (20:59)
[2019-07-01] MEDS: GLUCOTROL PO SCH (21:22)
[2019-07-01] MEDS: CRESTOR TAB 10 MG PO SCH (21:22)
[2019-07-01] MEDS: COLACE CAP 100 MG PO SCH (21:22)
[2019-07-01] MEDS ORDERED: ELIQUIS ONE (22:03)
[2019-07-01] MEDS: ELIQUIS PO SCH (22:07)
--- NOTE | 2019-07-02 07:57 | PCM.PROG ---
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 He reports increasing difficulty using his left leg compared to baseline(uses wheelchair d/t deficits form prior stroke involving left sided UE and LE weakness) for the past two days that including pain and swelling of his LLE up to his groin. He reportedly fell at home(did not hit head) and was unable to get up without assistance from EMS, which noted significant left leg swelling. Patient states he is a pt of Dr. Lopez, he is followed by the [facility]. Venous duplex(06/29/19):occlusive thrombus within the common femoral, superficial femoral, popliteal and anterior tibial veins. CTA aorta w/ runoff(06/30/19):1. 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 2. Diffuse colonic diverticu losis and apparent sigmoid diverticulitis. 3. Prostatic enlargement and small bilateral renal calculi without hydronephrosis. -Pt refusing blood draws for labs, some required for heparin gtt monitoring. Explained to pt will switch over to Eliquis and importance of taking daily w/ associated risk of non-compliance. Pt verbalized understanding. He is tolerating po intake, having good bowel movements. He says that he has follow up appointment with [facility] in [place] on 07/05. Has transport that will take him there. Past Medical Family Social History Past Med/Fam/Surg Hx: No changes since H&P Allergies: Allergies No Known Drug Allergies Allergy (Verified 01/10/19 09:15) Review of Systems ROS: No change since H&P Vital Signs and I&O's Vital Signs: Temperature 98.5 F Pulse Rate 58 Respiratory Rate 20 Blood Pressure 162/79 O2 Sat by Pulse Oximetry 98 Intake and Output: Intake & Output 06/29/19 06/30/19 07/01/19 07/02/19 23:59 23:59 23:59 23:59 Intake Total 1594 / 1594 3834 / 3834 1981 / 1981 240 / 240 Output Total 450 / 450 1576 / 1576 2500 / 2500 1100 / 1100 Balance 1144 / 1144 2258 / 2258 -518 / -518 -860 / -860 Physical Exam Oriented: Normal Eyes: Normal Ear: Normal Nose: Normal Throat: Normal Cardiovascular: Normal Auscultation: Bowel Sounds: Normal Tenderness: Normal Skin: Normal Musculoskeletal: Leg (LLE warm to touch, non-tender on palpation), Swelling (3+ pitting edema of LLE. Edema of proximal LLE noted as well. ) and Pulse Deficit (LLE) Psychiatric: Normal Mood Description: Calm Speech Pattern: Clear Laboratory and Diagnostics Result Diagrams: 07/01/19 05:40 07/01/19 05:40 Labs: Laboratory WBC 5.0 X10^3/uL (3.6-10.0) 07/01/19 05:40 RBC 3.93 X10^6/uL (4.7-6.0) L 07/01/19 05:40 Hgb 12.1 g/dL (13.5-18.0) L 07/01/19 05:40 Hct 36.0 % (42.0-54.0) L 07/01/19 05:40 MCV 91.6 fL (80.0-100.0) 07/01/19 05:40 MCH 30.9 pg (27.0-34.0) 07/01/19 05:40 MCHC 33.7 g/dL (33.0-35.0) 07/01/19 05:40 RDW 14.8 % (11.6-16.5) 07/01/19 05:40 Plt Count 145 X10^3/uL (150.0-450.0) L 07/01/19 05:40 MPV 9.0 fL (7.4-11.0) 07/01/19 05:40 Neut % (Auto) 69.3 % (42.0-75.0) 07/01/19 05:40 Lymph % (Auto) 16.7 % (21.0-51.0) L 07/01/19 05:40 [place] % (Auto) 8.4 % (0.0-13.0) 07/01/19 05:40 Eos % (Auto) 5.1 % (0.9-2.9) H 07/01/19 05:40 Baso % (Auto) 0.5 % (0.2-1.0) 07/01/19 05:40 Neut # (Auto) 3.4 x10^3/uL (2.2-4.8) 07/01/19 05:40 Lymph # (Auto) 0.8 X10^3/uL (1.3-2.9) L 07/01/19 05:40 [place] # (Auto) 0.4 x10^3/uL (0.3-0.8) 07/01/19 05:40 Eos # (Auto) 0.3 x10^3/uL (0.0-0.2) H 07/01/19 05:40 Baso # (Auto) 0.0 X10^3/uL (0.0-0.1) 07/01/19 05:40 Absolute Nucleated RBC 0.0 /100WBC 07/01/19 05:40 PT 15.0 SECONDS (11.8-14.3) 06/29/19 15:55 INR Target Range - 06/29/19 15:55 INR 1.23 (0.8-1.3) 06/29/19 15:55 APTT 63.2 SECONDS (22.9-36.5) H 07/01/19 15:22 PTT Comment - 07/01/19 15:22 D-Dimer > 5000 ng/mL (0-400) H* 06/29/19 09:52 Sodium 138 mmol/L (136-145) 07/01/19 05:40 Corrected Sodium 139 mmol/L (136-145) 07/01/19 05:40 Potassium 4.0 mmol/L (3.5-5.1) 07/01/19 05:40 Chloride 104 mmol/L (98-107) 07/01/19 05:40 Carbon Dioxide 23.4 mmol/L (21-32) 07/01/19 05:40 BUN 27 mg/dL (7-18) H 07/01/19 05:40 Creatinine 0.95 mg/dL (0.70-1.30) 07/01/19 05:40 Est GFR (MDRD) Af Amer > 60 (>60) 07/01/19 05:40 Est GFR (MDRD) Non-Af > 60 (>60) 07/01/19 05:40 Glucose 162 mg/dL (65-99) H 07/01/19 05:40 POC Glucose (mg/dL) 92 mg/dL (65-99) 07/02/19 05:53 Calcium 8.3 mg/dL (8.5-10.1) L 07/01/19 05:40 Corrected Calcium 9.1 mg/dL (8.5-10.1) 06/29/19 09:52 Magnesium 2.3 mg/dL (1.7-2.9) 06/30/19 05:35 Total Bilirubin 1.80 mg/dL (0.2-1.0) H 06/29/19 09:52 AST 11 Units/L (15-37) L 06/29/19 09:52 ALT 12 Units/L (12-78) 06/29/19 09:52 Alkaline Phosphatase 66 Units/L (46-116) 06/29/19 09:52 B-Natriuretic Peptide 83.1 pg/mL (0-79) H 06/29/19 09:52 Total Protein 6.5 g/dL (6.4-8.2) 06/29/19 09:52 Albumin 3.2 g/dL (3.4-5.0) L 06/29/19 09:52 Globulin 3.3 g/dL (2.5-4.5) 06/29/19 09:52 Albumin/Globulin Ratio 1.0 Ratio (1.1-2.1) L 06/29/19 09:52 Amylase 17 Units/L (25-115) L 06/29/19 09:52 Lipase 132 Units/L (73-393) 06/29/19 09:52 Total PSA 3.21 ng/mL (0.13-4.0) 07/01/19 05:40 Specimen Type Random urine 06/29/19 13:51 Urine Color Yellow (YELLOW) 06/29/19 13:51 Urine Appearance Clear (CLEAR) 06/29/19 13:51 Urine pH 5.0 (5.0 - 8.0) 06/29/19 13:51 Ur Specific [place] 1.015 (1.000-1.030) 06/29/19 13:51 Urine Protein Negative (NEGATIVE) 06/29/19 13:51 Urine Glucose (UA) 4+ (NEGATIVE) 06/29/19 13:51 Urine Ketones Negative (NEGATIVE) 06/29/19 13:51 Urine Occult Blood Negative (NEGATIVE) 06/29/19 13:51 Urine Nitrite Negative (NEGATIVE) 06/29/19 13:51 Urine Bilirubin Negative (NEGATIVE) 06/29/19 13:51 Urine Urobilinogen Normal (NORMAL) 06/29/19 13:51 Ur Leukocyte Esterase 2+ (NEGATIVE) 06/29/19 13:51 Urine RBC None seen /HPF (0-3) 06/29/19 13:51 Urine WBC 3-5 /HPF (0-5) 06/29/19 13:51 Ur Squamous Epith Cells Rare /HPF (NEGATIVE) 06/29/19 13:51 Urine Bacteria Negative /HPF (NEGATIVE) 06/29/19 13:51 Ur Culture Indicated? No/not indicated 06/29/19 13:51 Plan (1) Deep venous thrombosis of left femoral vein: Status: Acute Qualifiers: Chronicity: acute Qualified Code(s): I82.412 - Acute embolism and thrombosis of left femoral vein Plan: -IV heparin gtt d/c and pt started on Eliquis today. -Per surgery:IV Heparin and then can switch the patient to oral anticoagulants. -Venous duplex(06/29/19):occlusive thrombus within the common femoral, superficial femoral, popliteal and anterior tibial veins. -Continue to monitor daily labs. (2) PVD (peripheral vascular disease): Status: Acute Plan: -Per surgery:Peripheral vascular disease with good collateral circulation to the foot. -CTA aorta w/ runoff(06/30/19):1. 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 (3) Diabetes: Status: Acute Qualifiers: Diabetes mellitus complication status: with other specified complication Diabetes mellitus [employer]cher [employer] insulin use: without watcher [employer] use Diabetes mellitus type: type 2 Qualified Code(s): E11.69 - Type 2 diabetes mellitus with other specified complication Plan: A1c(04/19/19):6.3% Continue Glipizide 10mg BID, holding metformin 48h d/t contrast study, will resume tomorrow. (4) Hypertension: Status: Acute Qualifiers: Hypertension type: essential hypertension Qualified Code(s): I10 - Essential (primary) hypertension Plan: Continue Amlodipine 10mg, restarted home Hydralazine 25mg BID, Will start low dose Lisinopril 5mg. (5) Hyperlipidemia: Status: Acute Qualifiers: Hyperlipidemia type: mixed hyperlipidemia Qualified Code(s): E78.2 - Mixed hyperlipidemia Plan: Continue Rosuvastatin 20mg. (6) Diverticulosis of colon: Status: Acute Plan: -Noted on CT A/P, however CTA aorta w/ runoff commented on possible diverticulitis. -Surgery consulted-diverticulitis unlikely on a clinical bases, no abx indicated at this time. Will need a colonoscopy outpt to evaluate that area which showed on the CT scan. (7) BPH (benign prostatic hyperplasia): Status: Acute Qualifiers: Lower urinary tract symptom presence: unspecified whether lower urinary tract symptoms present Qualified Code(s): N40.0 - Benign prostatic hyperplasia without lower urinary tract symptoms Plan: Noted on CT imaging, non-obstructive.
[2019-07-02] MEDS: APRESOLINE TAB 25 MG PO SCH ×2 (08:28→20:42)
[2019-07-02] MEDS: NEURONTIN CAP 400 MG PO SCH ×2 (08:46→20:43)
[2019-07-02] MEDS: MILK OF MAGNESIA PO SCH (08:46)
[2019-07-02] MEDS: ELIQUIS PO SCH ×2 (08:46→20:42)
[2019-07-02] MEDS: GLUCOTROL PO SCH ×2 (08:46→20:43)
[2019-07-02] MEDS: ZESTRIL TAB 5 MG PO SCH (09:39)
[2019-07-02 10:23] LABS: BASOPHILS % (AUTO) 0.7 % (0.2-1.0); EOSINOPHILS # (AUTO) 0.2 x10^3/uL (0.0-0.2); EOSINOPHILS % (AUTO) 3.8 % (0.9-2.9); HEMATOCRIT 39.7 % (42.0-54.0); HEMOGLOBIN 13.3 g/dL (13.5-18.0); LYMPHOCYTES # (AUTO) 0.8 X10^3/uL (1.3-2.9); LYMPHOCYTES % (AUTO) 15.1 % (21.0-51.0); MEAN CORPUSCULAR HEMOGLOBIN 30.5 pg (27.0-34.0); MEAN CORPUSCULAR HGB CONC 33.6 g/dL (33.0-35.0); MEAN CORPUSCULAR VOLUME 90.8 fL (80.0-100.0); MEAN PLATELET VOLUME 8.3 fL (7.4-11.0); MONOCYTES # (AUTO) 0.4 x10^3/uL (0.3-0.8); MONOCYTES % (AUTO) 7.7 % (0.0-13.0); NEUTROPHILS % (AUTO) 72.7 % (42.0-75.0); PLATELET COUNT 182 X10^3/uL (150.0-450.0); RED BLOOD COUNT 4.37 X10^6/uL (4.7-6.0); RED CELL DISTRIBUTION WIDTH 15.1 % (11.6-16.5); WHITE BLOOD COUNT 5.5 X10^3/uL (3.6-10.0)
--- NOTE | 2019-07-02 10:40 | RAD ---
History: Shortness of breath Study: Upright portable AP chest Comparison: January 10, 2019 Findings: Again is limited inspiration of grossly clear lungs. The heart appears enlarged and is extension weighted by the poor inspiration. There is no edema or effusion demonstrated. No significant bony abnormality is demonstrated. Impression: Limited inspiration, no definite acute disease Reported By:
[2019-07-02 10:42] LABS: ALANINE AMINOTRANSFERASE 13 Units/L (12-78); ALBUMIN 2.9 g/dL (3.4-5.0); ALKALINE PHOSPHATASE 56 Units/L (46-116); ASPARTATE AMINO TRANSFERASE 15 Units/L (15-37); BLOOD UREA NITROGEN 20 mg/dL (7-18); CALCIUM 9.1 mg/dL (8.5-10.1); CARBON DIOXIDE 26.5 mmol/L (21-32); CHLORIDE 106 mmol/L (98-107); CREATININE 0.84 mg/dL (0.70-1.30); SODIUM 140 mmol/L (136-145); TOTAL PROTEIN 6.1 g/dL (6.4-8.2); eGFR NON BLACK RACES > 60 (>60)
[2019-07-02] MEDS ORDERED: LASIX IVP ONE (11:19)
[2019-07-02] MEDS: COLACE CAP 100 MG PO SCH (20:42)
[2019-07-02] MEDS: CRESTOR TAB 10 MG PO SCH (20:42)
[2019-07-02] MEDS: SNACK - Diabetic Appropriate PO SCH (20:42)
--- NOTE | 2019-07-03 09:20 | W.DIS.FURT ---
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 He had increased difficulty using his left leg compared to baseline(uses wheelchair d/t deficits form prior stroke involving left sided UE and LE weakness) for the past two days that including pain and swelling of his LLE up to his groin. He reportedly fell at home(did not hit head) and was unable to get up without assistance from EMS, which noted significant left leg swelling. [facility], he has not seen since his CVA 6 months ago. Venous duplex(06/29/19):occlusive thrombus within the common femoral, superficial femoral, popliteal and anterior tibial veins. CTA aorta w/ runoff(06/30/19):1. 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 2. Diffuse colonic diverticulosis and apparent sigmoid diverticulitis. 3. Prostatic enlargement and small bilateral renal calculi without hydronephrosis. -Pt was initially placed on heparin gtt and then was switched over to Eliquis, instructed to take for at least 6 months. Surgery was consulted that agreed w/ plan of care. Pt had significant stenosis on CTA, vascular referral placed on discharge, instructed to f/u. He has appointment with another pcp from the OR in [place], [place] on Monday and will schedule him for follow up at [facility] in 1 week. Pt discharged with day supply of Eliquis in hand. CM to get connected with [facility] on discharge. (1) Deep venous thrombosis of left femoral vein: Eliquis (2) PVD (peripheral vascular disease): Per surgery:Peripheral vascular disease with good collateral circulation to the foot. Referral to Vascular Surgery-SHANEKA Griffith (3) Diabetes: A1c(04/19/19):6.3%, Glipizide 10mg BID, Metformin 850mg BID, Invokana (4) Hypertension: Amlodipine 10mg, Hydralazine 25mg BID, Lisinopril 5mg (5) Hyperlipidemia:Rosuvastatin 20mg. (6) Diverticulosis of colon: Noted on CT A/P, however CTA aorta w/ runoff commented on possible diverticulitis. -Surgery consulted-diverticulitis unlikely on a clinical bases, no abx. Will need a colonoscopy outpt to evaluate that area which showed on the CT scan. Pt to f/u w/ Dr De La RosaMr-Xmbkt-Dnf/surg for colonoscopy. (7) BPH (benign prostatic hyperplasia): Noted on CT imaging, non-obstructive. Vital Signs: Vital Signs (72 hours) 06/30/19 09:01 06/30/19 10:00 06/30/19 11:00 Temperature Pulse Rate 56 L 56 L Respiratory Rate 20 26 H Blood Pressure 131/61 125/62 140/68 O2 Sat by Pulse Oximetry 96 96 06/30/19 11:18 06/30/19 12:00 06/30/19 12:01 Temperature Pulse Rate 59 L 56 L Respiratory Rate 18 22 29 H Blood Pressure 146/65 O2 Sat by Pulse Oximetry 99 98 06/30/19 12:18 06/30/19 13:00 06/30/19 14:00 Temperature Pulse Rate 59 L 53 L Respiratory Rate 20 26 H 26 H Blood Pressure 139/67 O2 Sat by Pulse Oximetry 94 L 96 06/30/19 15:00 06/30/19 15:04 06/30/19 16:00 Temperature 98.1 F Pulse Rate 53 L 51 L 53 L Respiratory Rate 24 18 29 H Blood Pressure 124/63 O2 Sat by Pulse Oximetry 99 98 99 06/30/19 16:01 06/30/19 17:00 06/30/19 17:01 Temperature Pulse Rate 56 L 49 L 48 L Respiratory Rate 34 H 18 17 Blood Pressure 139/78 117/58 O2 Sat by Pulse Oximetry 98 97 97 06/30/19 18:00 06/30/19 19:00 06/30/19 19:04 Temperature Pulse Rate 61 58 L 55 L Respiratory Rate 33 H 29 H 25 H Blood Pressure 148/83 147/77 O2 Sat by Pulse Oximetry 95 98 99 06/30/19 20:00 06/30/19 20:01 06/30/19 20:03 Temperature 98.1 F Pulse Rate 54 L 51 L 53 L Respiratory Rate 19 17 23 Blood Pressure 140/104 134/69 O2 Sat by Pulse Oximetry 99 98 97 06/30/19 21:00 06/30/19 22:00 06/30/19 23:00 Temperature Pulse Rate 54 L 54 L 49 L Respiratory Rate 25 H 23 15 Blood Pressure 140/69 144/71 127/62 O2 Sat by Pulse Oximetry 97 97 95 07/01/19 00:00 07/01/19 00:01 07/01/19 01:00 Temperature 98.3 F Pulse Rate 52 L 52 L 47 L Respiratory Rate 18 17 17 Blood Pressure 139/69 O2 Sat by Pulse Oximetry 96 97 98 07/01/19 01:01 07/01/19 02:00 07/01/19 02:01 Temperature Pulse Rate 64 63 Respiratory Rate 21 23 Blood Pressure 163/74 164/73 O2 Sat by Pulse Oximetry 95 96 07/01/19 03:00 07/01/19 03:01 07/01/19 03:59 Temperature Pulse Rate 48 L 51 L 51 L Respiratory Rate 19 15 15 Blood Pressure 127/66 O2 Sat by Pulse Oximetry 99 98 97 07/01/19 04:01 07/01/19 04:02 07/01/19 05:00 Temperature 98.2 F Pulse Rate 67 56 L Respiratory Rate 28 H 21 Blood Pressure 145/72 138/74 O2 Sat by Pulse Oximetry 99 98 07/01/19 06:00 07/01/19 07:00 07/01/19 08:00 Temperature 98.1 F Pulse Rate 52 L 49 L 55 L Respiratory Rate 18 16 22 Blood Pressure 154/75 141/74 150/75 O2 Sat by Pulse Oximetry 98 98 96 07/01/19 09:00 07/01/19 10:00 07/01/19 10:01 Temperature Pulse Rate 55 L 53 L 53 L Respiratory Rate 23 18 18 Blood Pressure 163/77 150/74 150/74 O2 Sat by Pulse Oximetry 97 97 97 07/01/19 11:00 07/01/19 12:00 07/01/19 13:00 Temperature 98.0 F Pulse Rate 48 L 53 L 63 Respiratory Rate 20 20 20 Blood Pressure 162/91 160/75 178/86 O2 Sat by Pulse Oximetry 97 100 98 07/01/19 14:00 07/01/19 15:00 07/01/19 16:00 Temperature 97.9 F Pulse Rate 62 58 L 56 L Respiratory Rate 20 20 20 Blood Pressure 116/58 131/66 143/68 O2 Sat by Pulse Oximetry 96 99 98 07/01/19 17:00 07/01/19 18:00 07/01/19 19:00 Temperature Pulse Rate 69 69 63 Respiratory Rate 20 20 28 H Blood Pressure 122/69 149/83 129/78 O2 Sat by Pulse Oximetry 98 97 97 07/01/19 20:00 07/01/19 21:00 07/01/19 21:01 Temperature 98.6 F Pulse Rate 58 L 63 63 Respiratory Rate 22 26 H 27 H Blood Pressure 137/67 162/79 O2 Sat by Pulse Oximetry 97 97 98 07/01/19 22:00 07/01/19 23:00 07/02/19 00:10 Temperature 98.3 F Pulse Rate 60 53 L 65 Respiratory Rate 20 24 23 Blood Pressure 144/70 145/70 154/73 O2 Sat by Pulse Oximetry 98 97 97 07/02/19 01:00 07/02/19 01:01 07/02/19 02:00 Temperature Pulse Rate 51 L 50 L 58 L Respiratory Rate 13 15 20 Blood Pressure 155/67 O2 Sat by Pulse Oximetry 97 98 99 07/02/19 02:01 07/02/19 03:00 07/02/19 03:01 Temperature Pulse Rate 56 L 54 L Respiratory Rate 18 18 Blood Pressure 143/67 179/79 O2 Sat by Pulse Oximetry 97 96 07/02/19 03:07 07/02/19 04:00 07/02/19 04:01 Temperature 98.5 F Pulse Rate 53 L 51 L 52 L Respiratory Rate 23 17 18 Blood Pressure 168/79 157/77 O2 Sat by Pulse Oximetry 98 97 98 07/02/19 05:00 07/02/19 06:00 07/02/19 06:01 Temperature Pulse Rate 56 L 60 57 L Respiratory Rate 21 24 24 Blood Pressure 159/75 162/77 O2 Sat by Pulse Oximetry 98 97 98 07/02/19 07:00 07/02/19 08:00 07/02/19 09:00 Temperature 97.6 F Pulse Rate 58 L 50 L 55 L Respiratory Rate 20 18 20 Blood Pressure 162/79 165/87 145/64 O2 Sat by Pulse Oximetry 98 96 98 07/02/19 10:00 07/02/19 11:00 07/02/19 12:00 Temperature 98.0 F Pulse Rate 61 68 56 L Respiratory Rate 20 20 20 Blood Pressure 163/73 146/70 128/59 O2 Sat by Pulse Oximetry 100 100 98 07/02/19 13:00 07/02/19 14:00 07/02/19 15:00 Temperature Pulse Rate 71 72 56 L Respiratory Rate 18 18 20 Blood Pressure 162/79 117/58 127/69 O2 Sat by Pulse Oximetry 100 99 97 07/02/19 16:00 07/02/19 17:00 07/02/19 18:00 Temperature 97.9 F Pulse Rate 60 57 L 58 L Respiratory Rate 20 20 20 Blood Pressure 140/67 130/61 150/71 O2 Sat by Pulse Oximetry 99 98 99 07/02/19 19:00 07/02/19 20:00 07/02/19 21:00 Temperature 97.3 F L Pulse Rate 63 60 Respiratory Rate 25 H 24 Blood Pressure 150/72 151/69 151/72 O2 Sat by Pulse Oximetry 99 98 07/02/19 22:00 07/02/19 23:00 07/03/19 00:00 Temperature Pulse Rate 60 57 L 62 Respiratory Rate 26 H 24 28 H Blood Pressure 150/72 161/77 186/93 O2 Sat by Pulse Oximetry 98 95 98 07/03/19 00:04 07/03/19 01:00 07/03/19 01:01 Temperature 98.2 F Pulse Rate 60 50 L 49 L Respiratory Rate 40 H 22 20 Blood Pressure 186/87 145/70 O2 Sat by Pulse Oximetry 99 100 100 07/03/19 02:00 07/03/19 02:01 07/03/19 03:00 Temperature Pulse Rate 54 L 63 57 L Respiratory Rate 18 17 15 Blood Pressure 157/71 153/71 O2 Sat by Pulse Oximetry 98 100 99 07/03/19 04:00 07/03/19 05:00 07/03/19 05:01 Temperature 98.7 F Pulse Rate 53 L 51 L 53 L Respiratory Rate 17 13 19 Blood Pressure 169/76 163/70 O2 Sat by Pulse Oximetry 96 99 99 07/03/19 06:00 07/03/19 06:01 Temperature Pulse Rate 59 L 65 Respiratory Rate 21 33 H Blood Pressure 155/89 O2 Sat by Pulse Oximetry 97 99 Labs: Laboratory Last Values WBC 5.5 X10^3/uL (3.6-10.0) 07/02/19 10:10 RBC 4.37 X10^6/uL (4.7-6.0) L 07/02/19 10:10 Hgb 13.3 g/dL (13.5-18.0) L 07/02/19 10:10 Hct 39.7 % (42.0-54.0) L 07/02/19 10:10 MCV 90.8 fL (80.0-100.0) 07/02/19 10:10 MCH 30.5 pg (27.0-34.0) 07/02/19 10:10 MCHC 33.6 g/dL (33.0-35.0) 07/02/19 10:10 RDW 15.1 % (11.6-16.5) 07/02/19 10:10 Plt Count 182 X10^3/uL (150.0-450.0) 07/02/19 10:10 MPV 8.3 fL (7.4-11.0) 07/02/19 10:10 Neut % (Auto) 72.7 % (42.0-75.0) 07/02/19 10:10 Lymph % (Auto) 15.1 % (21.0-51.0) L 07/02/19 10:10 [place] % (Auto) 7.7 % (0.0-13.0) 07/02/19 10:10 Eos % (Auto) 3.8 % (0.9-2.9) H 07/02/19 10:10 Baso % (Auto) 0.7 % (0.2-1.0) 07/02/19 10:10 Neut # (Auto) 4.0 x10^3/uL (2.2-4.8) 07/02/19 10:10 Lymph # (Auto) 0.8 X10^3/uL (1.3-2.9) L 07/02/19 10:10 [place] # (Auto) 0.4 x10^3/uL (0.3-0.8) 07/02/19 10:10 Eos # (Auto) 0.2 x10^3/uL (0.0-0.2) 07/02/19 10:10 Baso # (Auto) 0.0 X10^3/uL (0.0-0.1) 07/02/19 10:10 Absolute Nucleated RBC 0.0 /100WBC 07/02/19 10:10 PT 15.0 SECONDS (11.8-14.3) 06/29/19 15:55 INR Target Range - 06/29/19 15:55 INR 1.23 (0.8-1.3) 06/29/19 15:55 APTT 63.2 SECONDS (22.9-36.5) H 07/01/19 15:22 PTT Comment - 07/01/19 15:22 D-Dimer > 5000 ng/mL (0-400) H* 06/29/19 09:52 Sodium 140 mmol/L (136-145) 07/02/19 10:10 Corrected Sodium TNP 07/02/19 10:10 Potassium 4.2 mmol/L (3.5-5.1) 07/02/19 10:10 Chloride 106 mmol/L (98-107) 07/02/19 10:10 Carbon Dioxide 26.5 mmol/L (21-32) 07/02/19 10:10 BUN 20 mg/dL (7-18) H 07/02/19 10:10 Creatinine 0.84 mg/dL (0.70-1.30) 07/02/19 10:10 Est GFR (MDRD) Af Amer > 60 (>60) 07/02/19 10:10 Est GFR (MDRD) Non-Af > 60 (>60) 07/02/19 10:10 Glucose 99 mg/dL (65-99) 07/02/19 10:10 POC Glucose (mg/dL) 113 mg/dL (65-99) H 07/03/19 05:53 Calcium 9.1 mg/dL (8.5-10.1) 07/02/19 10:10 Corrected Calcium 10.0 mg/dL (8.5-10.1) 07/02/19 10:10 Magnesium 2.3 mg/dL (1.7-2.9) 06/30/19 05:35 Total Bilirubin 0.50 mg/dL (0.2-1.0) 07/02/19 10:10 AST 15 Units/L (15-37) 07/02/19 10:10 ALT 13 Units/L (12-78) 07/02/19 10:10 Alkaline Phosphatase 56 Units/L (46-116) 07/02/19 10:10 Troponin I < 0.02 ng/mL (0-1.5) 07/02/19 10:10 B-Natriuretic Peptide 83.1 pg/mL (0-79) H 06/29/19 09:52 Total Protein 6.1 g/dL (6.4-8.2) L 07/02/19 10:10 Albumin 2.9 g/dL (3.4-5.0) L 07/02/19 10:10 Globulin 3.2 g/dL (2.5-4.5) 07/02/19 10:10 Albumin/Globulin Ratio 0.9 Ratio (1.1-2.1) L 07/02/19 10:10 Amylase 17 Units/L (25-115) L 06/29/19 09:52 Lipase 132 Units/L (73-393) 06/29/19 09:52 Total PSA 3.21 ng/mL (0.13-4.0) 07/01/19 05:40 Specimen Type Random urine 06/29/19 13:51 Urine Color Yellow (YELLOW) 06/29/19 13:51 Urine Appearance Clear (CLEAR) 06/29/19 13:51 Urine pH 5.0 (5.0 - 8.0) 06/29/19 13:51 Ur Specific [place] 1.015 (1.000-1.030) 06/29/19 13:51 Urine Protein Negative (NEGATIVE) 06/29/19 13:51 Urine Glucose (UA) 4+ (NEGATIVE) 06/29/19 13:51 Urine Ketones Negative (NEGATIVE) 06/29/19 13:51 Urine Occult Blood Negative (NEGATIVE) 06/29/19 13:51 Urine Nitrite Negative (NEGATIVE) 06/29/19 13:51 Urine Bilirubin Negative (NEGATIVE) 06/29/19 13:51 Urine Urobilinogen Normal (NORMAL) 06/29/19 13:51 Ur Leukocyte Esterase 2+ (NEGATIVE) 06/29/19 13:51 Urine RBC None seen /HPF (0-3) 06/29/19 13:51 Urine WBC 3-5 /HPF (0-5) 06/29/19 13:51 Ur Squamous Epith Cells Rare /HPF (NEGATIVE) 06/29/19 13:51 Urine Bacteria Negative /HPF (NEGATIVE) 06/29/19 13:51 Ur Culture Indicated? No/not indicated 06/29/19 13:51 Reason For Visit: LEFT DVT, HYPERGLYCEMIA, DIVERTICULOSIS,GALLSTONE Discharge Date Discharge Date: 07/03/19 Discharge Diagnosis All Active Problems (Updated 07/03/19 @ 09:23 by Ab Dinh) PVD (peripheral vascular disease) (Acute) BPH (benign prostatic hyperplasia) (Acute) Hyperlipidemia (Acute) CVA (cerebral vascular accident) (Chronic) Hypertension (Acute) Diabetes (Acute) Deep venous thrombosis of left femoral vein (Acute) Diverticulosis of colon (Acute) Gallstone (Acute) Plan of Treatment: Continue with present treatment and follow up plan. Pt is to keep follow up appointment as instructed and take medications as ordered. Discharge Medications Discharge Medications: No Known Drug Allergies Allergy (Verified 01/10/19 09:15) New Prescriptions apixaban [Eliquis] 5 mg PO PER PKG DIR #74 ea 07/03/19 [Rx] lisinopril 5 mg PO DAILY 30 Days #30 tab 07/03/19 [Rx] rosuvastatin 20 mg PO HS 30 Days #60 tab 07/03/19 [Rx] Discharge Disposition Discharge Disposition: Home
[2019-07-03] MEDS: APRESOLINE TAB 25 MG PO SCH (09:22)
[2019-07-03] MEDS: ELIQUIS PO SCH (09:23)
[2019-07-03] MEDS: ZESTRIL TAB 5 MG PO SCH (09:23)
[2019-07-03] MEDS: NEURONTIN CAP 400 MG PO SCH (09:23)
[2019-07-03] MEDS: GLUCOTROL PO SCH (09:24)
[2019-07-03] MEDS: MILK OF MAGNESIA PO SCH (09:25)
--- NOTE | 2019-07-03 10:47 | DR.PROGNOT ---
Hospital Progress Notes - Progress Note for Day of: Progress Note Date: 07/03/19 - Chief Complaint Chief Complaint: still having mild Lt groin pain . Lt leg swelling is less . no chest pain or SOB . no bleeding . no abdominal pain . PSA normal , CEA is pending . - Past Medical Family Social History Past Med/Fam/Surg Hx: No changes since H&P Allergies: Allergies No Known Drug Allergies Allergy (Verified 01/10/19 09:15) - Review Of Systems ROS: No change since H&P - Vital Signs Vital Signs: Temperature 98.7 F Pulse Rate 65 Respiratory Rate 33 Blood Pressure 155/89 O2 Sat by Pulse Oximetry 99 - Physical Exam Oriented: Normal Eyes: Normal Ear: Normal Nose: Normal Throat: Normal Cardiovascular: Normal GI:Auscultation: Normal GI:Palpation: Normal GI: Tenderness: Normal Skin: Normal Musculoskeletal: Leg (Lt leg edema from the upper thigh down to the toes 2+..femoral pulse is positive .no palpable groin mass or adenopathy .), Swelling (3+ pitting edema of LLE. Edema of proximal LLE noted as well.), Pulse Deficit (LLE) Psychiatric: Normal Mood Description: Calm Speech Pattern: Clear, Appropriate - Laboratory and Diagnostics Result Diagrams: 07/02/19 10:10 07/02/19 10:10 Labs: Laboratory WBC 5.5 X10^3/uL (3.6-10.0) 07/02/19 10:10 RBC 4.37 X10^6/uL (4.7-6.0) L 07/02/19 10:10 Hgb 13.3 g/dL (13.5-18.0) L 07/02/19 10:10 Hct 39.7 % (42.0-54.0) L 07/02/19 10:10 MCV 90.8 fL (80.0-100.0) 07/02/19 10:10 MCH 30.5 pg (27.0-34.0) 07/02/19 10:10 MCHC 33.6 g/dL (33.0-35.0) 07/02/19 10:10 RDW 15.1 % (11.6-16.5) 07/02/19 10:10 Plt Count 182 X10^3/uL (150.0-450.0) 07/02/19 10:10 MPV 8.3 fL (7.4-11.0) 07/02/19 10:10 Neut % (Auto) 72.7 % (42.0-75.0) 07/02/19 10:10 Lymph % (Auto) 15.1 % (21.0-51.0) L 07/02/19 10:10 [place] % (Auto) 7.7 % (0.0-13.0) 07/02/19 10:10 Eos % (Auto) 3.8 % (0.9-2.9) H 07/02/19 10:10 Baso % (Auto) 0.7 % (0.2-1.0) 07/02/19 10:10 Neut # (Auto) 4.0 x10^3/uL (2.2-4.8) 07/02/19 10:10 Lymph # (Auto) 0.8 X10^3/uL (1.3-2.9) L 07/02/19 10:10 [place] # (Auto) 0.4 x10^3/uL (0.3-0.8) 07/02/19 10:10 Eos # (Auto) 0.2 x10^3/uL (0.0-0.2) 07/02/19 10:10 Baso # (Auto) 0.0 X10^3/uL (0.0-0.1) 07/02/19 10:10 Absolute Nucleated RBC 0.0 /100WBC 07/02/19 10:10 PT 15.0 SECONDS (11.8-14.3) 06/29/19 15:55 INR Target Range - 06/29/19 15:55 INR 1.23 (0.8-1.3) 06/29/19 15:55 APTT 63.2 SECONDS (22.9-36.5) H 07/01/19 15:22 PTT Comment - 07/01/19 15:22 D-Dimer > 5000 ng/mL (0-400) H* 06/29/19 09:52 Sodium 140 mmol/L (136-145) 07/02/19 10:10 Corrected Sodium TNP 07/02/19 10:10 Potassium 4.2 mmol/L (3.5-5.1) 07/02/19 10:10 Chloride 106 mmol/L (98-107) 07/02/19 10:10 Carbon Dioxide 26.5 mmol/L (21-32) 07/02/19 10:10 BUN 20 mg/dL (7-18) H 07/02/19 10:10 Creatinine 0.84 mg/dL (0.70-1.30) 07/02/19 10:10 Est GFR (MDRD) Af Amer > 60 (>60) 07/02/19 10:10 Est GFR (MDRD) Non-Af > 60 (>60) 07/02/19 10:10 Glucose 99 mg/dL (65-99) 07/02/19 10:10 POC Glucose (mg/dL) 113 mg/dL (65-99) H 07/03/19 05:53 Calcium 9.1 mg/dL (8.5-10.1) 07/02/19 10:10 Corrected Calcium 10.0 mg/dL (8.5-10.1) 07/02/19 10:10 Magnesium 2.3 mg/dL (1.7-2.9) 06/30/19 05:35 Total Bilirubin 0.50 mg/dL (0.2-1.0) 07/02/19 10:10 AST 15 Units/L (15-37) 07/02/19 10:10 ALT 13 Units/L (12-78) 07/02/19 10:10 Alkaline Phosphatase 56 Units/L (46-116) 07/02/19 10:10 Troponin I < 0.02 ng/mL (0-1.5) 07/02/19 10:10 B-Natriuretic Peptide 83.1 pg/mL (0-79) H 06/29/19 09:52 Total Protein 6.1 g/dL (6.4-8.2) L 07/02/19 10:10 Albumin 2.9 g/dL (3.4-5.0) L 07/02/19 10:10 Globulin 3.2 g/dL (2.5-4.5) 07/02/19 10:10 Albumin/Globulin Ratio 0.9 Ratio (1.1-2.1) L 07/02/19 10:10 Amylase 17 Units/L (25-115) L 06/29/19 09:52 Lipase 132 Units/L (73-393) 06/29/19 09:52 Total PSA 3.21 ng/mL (0.13-4.0) 07/01/19 05:40 Specimen Type Random urine 06/29/19 13:51 Urine Color Yellow (YELLOW) 06/29/19 13:51 Urine Appearance Clear (CLEAR) 06/29/19 13:51 Urine pH 5.0 (5.0 - 8.0) 06/29/19 13:51 Ur Specific [place] 1.015 (1.000-1.030) 06/29/19 13:51 Urine Protein Negative (NEGATIVE) 06/29/19 13:51 Urine Glucose (UA) 4+ (NEGATIVE) 06/29/19 13:51 Urine Ketones Negative (NEGATIVE) 06/29/19 13:51 Urine Occult Blood Negative (NEGATIVE) 06/29/19 13:51 Urine Nitrite Negative (NEGATIVE) 06/29/19 13:51 Urine Bilirubin Negative (NEGATIVE) 06/29/19 13:51 Urine Urobilinogen Normal (NORMAL) 06/29/19 13:51 Ur Leukocyte Esterase 2+ (NEGATIVE) 06/29/19 13:51 Urine RBC None seen /HPF (0-3) 06/29/19 13:51 Urine WBC 3-5 /HPF (0-5) 06/29/19 13:51 Ur Squamous Epith Cells Rare /HPF (NEGATIVE) 06/29/19 13:51 Urine Bacteria Negative /HPF (NEGATIVE) 06/29/19 13:51 Ur Culture Indicated? No/not indicated 06/29/19 13:51 - Assessment and Plan 1: DVT with involved Lt femoral vein. PVD. needs physical Tx before discharge ( Pt refused short period of placement ). will follow in the office in two weeks and arrange for future colonoscopy . - Problem Patient Problems: Patient Problems PVD (peripheral vascular disease) (Acute) I73.9 BPH (benign prostatic hyperplasia) (Acute) N40.0 Hyperlipidemia (Acute) E78.5 Hypertension (Acute) I10 Diabetes (Acute) E11.9 Deep venous thrombosis of left femoral vein (Acute) I82.412 Diverticulosis of colon (Acute) K57.30 Gallstone (Acute) K80.20
[2019-07-03 16:35] VITALS: BP 168/78
== END 2019-07-03 16:05 | disposition home or self-care (01) | DRG 301 ==
LOC: ER 08:40 → ICU 14:09
PROVIDERS: ADMIT Family Medicine; ATTEND Family Medicine
DX: K57.30 Diverticulosis of large intestine without perforation or abscess without bleeding; I10 Essential (primary) hypertension; I82.412 Acute embolism and thrombosis of left femoral vein; I25.10 Atherosclerotic heart disease of native coronary artery without angina pectoris; R06.02 Shortness of breath; K80.20 Calculus of gallbladder without cholecystitis without obstruction; Z91.81 History of falling; I73.89 Other specified peripheral vascular diseases; E11.65 Type 2 diabetes mellitus with hyperglycemia; N40.0 Benign prostatic hyperplasia without lower urinary tract symptoms; R60.0 Localized edema; E78.2 Mixed hyperlipidemia
CPT/HCPCS: 36415; 71010; 71045; 72192; 74176; 80048; 80053; 81001; 82150; 82378; 83690; 83735; 83880; 84153; 84484; 85025; 85378; 85610; 85730; 93005; 93971; 96365; 96374; 96375; 97162; 99284; A4216; A4222; J1644; J1815; J1885; J1940; J3475; J7030

== ENCOUNTER 2019-10-17 13:55 | Inpatient (IN) ==
[2019-10-17] MEDS ORDERED: HEPARIN SODIUM IN D5W 25,000 UNITS/500 ML BAG IV PRN (14:41)
[2019-10-17] MEDS ORDERED: HumuLIN R SC PRN (14:44)
[2019-10-17 15:12] LABS: BASOPHILS % (AUTO) 0.5 % (0.2-1.0); EOSINOPHILS # (AUTO) 0.4 x10^3/uL (0.0-0.2); EOSINOPHILS % (AUTO) 5.4 % (0.9-2.9); HEMATOCRIT 47.6 % (42.0-54.0); HEMOGLOBIN 15.9 g/dL (13.5-18.0); LYMPHOCYTES # (AUTO) 1.3 X10^3/uL (1.3-2.9); LYMPHOCYTES % (AUTO) 17.8 % (21.0-51.0); MEAN CORPUSCULAR HEMOGLOBIN 31.2 pg (27.0-34.0); MEAN CORPUSCULAR HGB CONC 33.5 g/dL (33.0-35.0); MEAN CORPUSCULAR VOLUME 93.3 fL (80.0-100.0); MONOCYTES # (AUTO) 0.5 x10^3/uL (0.3-0.8); MONOCYTES % (AUTO) 6.9 % (0.0-13.0); NEUTROPHILS % (AUTO) 69.4 % (42.0-75.0); PLATELET COUNT 180 X10^3/uL (150.0-450.0); RED CELL DISTRIBUTION WIDTH 14.6 % (11.6-16.5); WHITE BLOOD COUNT 7.2 X10^3/uL (3.6-10.0)
--- NOTE | 2019-10-17 15:16 | DR.H&P ---
H&P History & Physical for Day of: H&P Date: 10/17/19 Chief Complaint Chief Complaint: Groin pain Allergies Allergies Allergy/AdvReac Type Severity Reaction Status Date / Time No Known Drug Allergies Allergy Verified 01/10/19 09:15 History of Present Illness History of Present Illness: Pt is a 79 yo m admitted from clinic after having U/S testing positive for extensive, partially occlusive DVT of the left lower extremity and having intractable pain. He reports chronic pain in his left groin and left leg for the past few weeks with associated edema. States that sx acutely worsened over the past 24 hours. Denies headaches, chest pain, shortness of breath, dysuria. U Past Medical History Past Medical History: Angina, Arthritis, Coronary Artery Disease, CVA, Diabetes and Hypertension Past Surgical History Surgical History: Other Social History Alcohol Use: DAILY Drug Use: None Medications Home Medications: No Known Drug Allergies Allergy (Verified 01/10/19 09:15) CONTINUE taking the following medications apixaban [Eliquis] 5 mg PO BID 10/17/19 [History] Labs Result Diagrams: 10/17/19 14:56 10/17/19 14:56 Review of Systems Constitutional: Weakness; denies Fever and Chills Eyes: No Symptoms Reported ENT: No Symptoms Reported Respiratory: No Symptoms Reported Cardiovascular: No Symptoms Reported Gastrointestinal: Abdominal Pain (Left groin ) Genitourinary: denies Dysuria and Hematuria Musculoskeletal: Leg Pain (LLE) Skin: Other (LLE dermatitis ) Neurological: No Symptoms Reported Physical Exam Vital Signs: Blood Pressure 180/101 Oriented: Normal Eyes: Normal Ear: Normal Nose: Normal Throat: Normal Respiratory: Clear Throughout Cardiovascular: Normal : Other (Left groin ) Auscultation: Bowel Sounds: Normal Palpation: Normal Tenderness: Normal Skin: Normal Musculoskeletal: Leg (LLE:2+ pitting edema, dermatitis ) Psychiatric: Normal Mood Description: Calm Speech Pattern: Clear Assessment/Plan (1) Deep venous thrombosis of left femoral vein: Qualifiers: Chronicity: acute Qualified Code(s): I82.412 - Acute embolism and thrombosis of left femoral vein Status: Acute Plan: -Start Heparin gtt -U/S: DVT partially occlusive thrombus in the left common femoral proximal mid and distal superficial femoral and popliteal vein these vessels show echogenic material on only partially compress. 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
[2019-10-17] MEDS ORDERED: TYLENOL 500 MG TAB EXTRA STRENGTH PO PRN (15:18)
[2019-10-17 15:21] LABS: ALANINE AMINOTRANSFERASE 24 Units/L (12-78); ALBUMIN 4.1 g/dL (3.4-5.0); ALKALINE PHOSPHATASE 58 Units/L (46-116); ASPARTATE AMINO TRANSFERASE 21 Units/L (15-37); BLOOD UREA NITROGEN 25 mg/dL (7-18); CARBON DIOXIDE 27.9 mmol/L (21-32); CHLORIDE 101 mmol/L (98-107); CREATININE 1.08 mg/dL (0.70-1.30); SODIUM 139 mmol/L (136-145); TOTAL PROTEIN 7.5 g/dL (6.4-8.2); eGFR NON BLACK RACES > 60 (>60)
[2019-10-17] MEDS ORDERED: ZESTRIL TAB 5 MG PO SCH ×2 (15:25→16:00)
[2019-10-17] MEDS ORDERED: NORVASC TAB 10 MG PO SCH ×2 (15:30→16:00)
[2019-10-17] MEDS ORDERED: HEPARIN SODIUM INJ 5000 UNITS ONE ×2 (15:47→15:48)
[2019-10-17] MEDS ORDERED: HEPARIN SODIUM INJ 5000 UNITS IVP ONE (15:49)
[2019-10-17] MEDS ORDERED: NORCO 10/325 TAB PO PRN (15:58)
[2019-10-17] MEDS ORDERED: APRESOLINE TAB 25 MG PO SCH (16:00)
[2019-10-17] MEDS: GLUCOTROL PO SCH (17:40)
[2019-10-17 18:09] VITALS: BMI 27.7
[2019-10-17] MEDS: NYSTATIN POWDER TOP SCH ×2 (18:56→20:45)
[2019-10-17] MEDS ORDERED: SNACK - Diabetic Appropriate PO SCH (20:00)
[2019-10-17] MEDS ORDERED: REMERON PO SCH (21:00)
[2019-10-17] MEDS ORDERED: COREG TAB 3.125 MG PO SCH (21:00)
[2019-10-17] MEDS ORDERED: PRAVACHOL PO SCH (21:00)
[2019-10-17] MEDS: NEURONTIN CAP 400 MG PO SCH (21:15)
[2019-10-18 03:34] LABS: BASOPHILS % (AUTO) 0.9 % (0.2-1.0); EOSINOPHILS # (AUTO) 0.4 x10^3/uL (0.0-0.2); HEMATOCRIT 41.5 % (42.0-54.0); LYMPHOCYTES # (AUTO) 1.4 X10^3/uL (1.3-2.9); LYMPHOCYTES % (AUTO) 28.6 % (21.0-51.0); MEAN CORPUSCULAR HEMOGLOBIN 31.2 pg (27.0-34.0); MEAN CORPUSCULAR HGB CONC 33.8 g/dL (33.0-35.0); MEAN CORPUSCULAR VOLUME 92.3 fL (80.0-100.0); MONOCYTES # (AUTO) 0.4 x10^3/uL (0.3-0.8); MONOCYTES % (AUTO) 8.2 % (0.0-13.0); NEUTROPHILS # (AUTO) 2.7 x10^3/uL (2.2-4.8); NEUTROPHILS % (AUTO) 54.3 % (42.0-75.0); PLATELET COUNT 145 X10^3/uL (150.0-450.0); RED BLOOD COUNT 4.49 X10^6/uL (4.7-6.0); RED CELL DISTRIBUTION WIDTH 14.3 % (11.6-16.5)
[2019-10-18 03:41] LABS: ALANINE AMINOTRANSFERASE 18 Units/L (12-78); ALBUMIN 3.1 g/dL (3.4-5.0); ALKALINE PHOSPHATASE 45 Units/L (46-116); ASPARTATE AMINO TRANSFERASE 16 Units/L (15-37); BLOOD UREA NITROGEN 24 mg/dL (7-18); CALCIUM 8.3 mg/dL (8.5-10.1); CARBON DIOXIDE 29.7 mmol/L (21-32); CHLORIDE 106 mmol/L (98-107); CREATININE 1.16 mg/dL (0.70-1.30); SODIUM 142 mmol/L (136-145); TOTAL PROTEIN 5.8 g/dL (6.4-8.2); eGFR NON BLACK RACES > 60 (>60)
[2019-10-18] MEDS: NEURONTIN CAP 400 MG PO SCH (06:51)
[2019-10-18] MEDS: GLUCOTROL PO SCH (06:53)
--- NOTE | 2019-10-18 08:08 | W.DIS.FURT ---
Summary of Discharge Admission Diagnosis Vital Signs: Vital Signs (72 hours) 10/17/19 14:27 10/17/19 14:30 10/17/19 14:35 Temperature Pulse Rate 65 62 64 Respiratory Rate 23 27 H 29 H Blood Pressure 212/96 193/90 O2 Sat by Pulse Oximetry 99 99 99 10/17/19 14:45 10/17/19 15:00 10/17/19 15:15 Temperature Pulse Rate 77 68 84 Respiratory Rate 37 H 33 H 46 H Blood Pressure 181/80 O2 Sat by Pulse Oximetry 99 94 L 96 10/17/19 15:30 10/17/19 15:45 10/17/19 16:00 Temperature Pulse Rate 81 69 66 Respiratory Rate 39 H 22 19 Blood Pressure O2 Sat by Pulse Oximetry 96 96 98 10/17/19 16:01 10/17/19 16:15 10/17/19 16:30 Temperature 98.8 F Pulse Rate 68 62 62 Respiratory Rate 30 H 19 20 Blood Pressure 133/63 O2 Sat by Pulse Oximetry 96 96 96 10/17/19 16:45 10/17/19 17:04 10/17/19 17:15 Temperature Pulse Rate 60 63 59 L Respiratory Rate 22 22 Blood Pressure O2 Sat by Pulse Oximetry 96 96 10/17/19 17:30 10/17/19 17:45 10/17/19 17:51 Temperature Pulse Rate 73 71 69 Respiratory Rate 40 H 35 H 34 H Blood Pressure 156/81 O2 Sat by Pulse Oximetry 96 97 96 10/17/19 18:00 10/17/19 20:00 10/17/19 22:00 Temperature 98.1 F Pulse Rate 71 62 Respiratory Rate 24 18 Blood Pressure 132/61 O2 Sat by Pulse Oximetry 97 96 10/17/19 23:00 10/18/19 00:00 10/18/19 01:00 Temperature 98.9 F Pulse Rate 57 L 53 L 53 L Respiratory Rate 20 27 H 18 Blood Pressure 139/58 109/54 131/60 O2 Sat by Pulse Oximetry 96 95 97 10/18/19 02:00 10/18/19 03:00 10/18/19 04:00 Temperature 98.1 F Pulse Rate 55 L 56 L 56 L Respiratory Rate 18 18 18 Blood Pressure 154/67 138/65 122/59 O2 Sat by Pulse Oximetry 95 94 L 96 10/18/19 05:00 10/18/19 06:00 Temperature Pulse Rate 59 L 54 L Respiratory Rate 14 16 Blood Pressure 115/59 141/60 O2 Sat by Pulse Oximetry 97 96 Labs: Laboratory Last Values WBC 5.0 X10^3/uL (3.6-10.0) 10/18/19 03:22 RBC 4.49 X10^6/uL (4.7-6.0) L 10/18/19 03:22 Hgb 14.0 g/dL (13.5-18.0) 10/18/19 03:22 Hct 41.5 % (42.0-54.0) L 10/18/19 03:22 MCV 92.3 fL (80.0-100.0) 10/18/19 03:22 MCH 31.2 pg (27.0-34.0) 10/18/19 03:22 MCHC 33.8 g/dL (33.0-35.0) 10/18/19 03:22 RDW 14.3 % (11.6-16.5) 10/18/19 03:22 Plt Count 145 X10^3/uL (150.0-450.0) L 10/18/19 03:22 MPV 9.0 fL (7.4-11.0) 10/18/19 03:22 Neut % (Auto) 54.3 % (42.0-75.0) 10/18/19 03:22 Lymph % (Auto) 28.6 % (21.0-51.0) 10/18/19 03:22 [place] % (Auto) 8.2 % (0.0-13.0) 10/18/19 03:22 Eos % (Auto) 8.0 % (0.9-2.9) H 10/18/19 03:22 Baso % (Auto) 0.9 % (0.2-1.0) 10/18/19 03:22 Neut # (Auto) 2.7 x10^3/uL (2.2-4.8) 10/18/19 03:22 Lymph # (Auto) 1.4 X10^3/uL (1.3-2.9) 10/18/19 03:22 [place] # (Auto) 0.4 x10^3/uL (0.3-0.8) 10/18/19 03:22 Eos # (Auto) 0.4 x10^3/uL (0.0-0.2) H 10/18/19 03:22 Baso # (Auto) 0.0 X10^3/uL (0.0-0.1) 10/18/19 03:22 Absolute Nucleated RBC 0.1 /100WBC 10/18/19 03:22 PT 12.8 SECONDS (11.8-14.3) 10/17/19 14:56 INR Target Range - 10/17/19 14:56 INR 1.00 (0.8-1.3) 10/17/19 14:56 APTT 70.4 SECONDS (22.9-36.5) H 10/18/19 03:22 PTT Comment - 10/18/19 03:22 Sodium 142 mmol/L (136-145) 10/18/19 03:22 Corrected Sodium TNP 10/18/19 03:22 Potassium 3.6 mmol/L (3.5-5.1) 10/18/19 03:22 Chloride 106 mmol/L (98-107) 10/18/19 03:22 Carbon Dioxide 29.7 mmol/L (21-32) 10/18/19 03:22 BUN 24 mg/dL (7-18) H 10/18/19 03:22 Creatinine 1.16 mg/dL (0.70-1.30) 10/18/19 03:22 Est GFR (MDRD) Af Amer > 60 (>60) 10/18/19 03:22 Est GFR (MDRD) Non-Af > 60 (>60) 10/18/19 03:22 Glucose 92 mg/dL (65-99) 10/18/19 03:22 POC Glucose (mg/dL) 90 mg/dL (65-99) 10/18/19 05:35 Calcium 8.3 mg/dL (8.5-10.1) L 10/18/19 03:22 Corrected Calcium 9.0 mg/dL (8.5-10.1) 10/18/19 03:22 Total Bilirubin 0.60 mg/dL (0.2-1.0) 10/18/19 03:22 AST 16 Units/L (15-37) 10/18/19 03:22 ALT 18 Units/L (12-78) 10/18/19 03:22 Alkaline Phosphatase 45 Units/L (46-116) L 10/18/19 03:22 Total Protein 5.8 g/dL (6.4-8.2) L 10/18/19 03:22 Albumin 3.1 g/dL (3.4-5.0) L 10/18/19 03:22 Globulin 2.7 g/dL (2.5-4.5) 10/18/19 03:22 Albumin/Globulin Ratio 1.1 Ratio (1.1-2.1) 10/18/19 03:22 Reason For Visit: DVT W/ PARTIALLY OCCLUSIVE THROMBUS IN LFT COMMON Discharge Diagnosis All Active Problems (Updated 10/17/19 @ 15:10 by Ab Dinh) Intractable pain (Acute) Candidal intertrigo (Acute) Leg pain, left (Acute) Edema leg (Acute) PVD (peripheral vascular disease) (Acute) BPH (benign prostatic hyperplasia) (Acute) Hyperlipidemia (Acute) CVA (cerebral vascular accident) (Chronic) Hypertension (Acute) Diabetes (Acute) Deep venous thrombosis of left femoral vein (Acute) Diverticulosis of colon (Acute) Gallstone (Acute) Plan of Treatment: Continue with present treatment and follow up plan. Pt is to keep follow up appointment as instructed and take medications as ordered. Discharge Medications Discharge Medications: No Known Drug Allergies Allergy (Verified 01/10/19 09:15) CONTINUE taking the following medications amlodipine 5 mg PO HS 10/17/19 [History] aspirin [Aspir-81] 81 mg PO DAILY 10/17/19 [History] carboxymethylcellulose sodium 1 drp OPHTHALMIC (EYE) QID 10/17/19 [History] cetirizine 5 mg PO QHS 10/17/19 [History] cyanocobalamin (vitamin B-12) 1,000 mcg PO DAILY 10/17/19 [History] diclofenac sodium 4 g TOPICAL QID 10/17/19 [History] gabapentin 400 mg PO TID 10/17/19 [History] hydrocodone-acetaminophen 1 tab PO Q6H PRN 10/17/19 [History] lisinopril 10 mg PO DAILY 10/17/19 [History] mirtazapine 15 mg PO QHS 10/17/19 [History] pioglitazone 30 mg PO DAILY 10/17/19 [History] New Prescriptions Eliquis 5 mg PO BID 30 Days #60 tab 10/18/19 [Rx] glipizide 5 mg PO BID 30 Days #60 tab 10/18/19 [Rx] nystatin 1 applic TOP BID 14 Days #30 g 10/18/19 [Rx] pravastatin 20 mg PO HS 30 Days #15 tab 10/18/19 [Rx]
--- NOTE | 2019-10-18 08:30 | W.DIS.FURT ---
Summary of Discharge Discharge Summary of Date Date of Exam: 10/18/19 Admission Date Date of Admission: 10/17/19 Admission Diagnosis Hospital Course: Pt is a 79 yo m admitted after having U/S positive for DVT partially occlusive thrombus in the left common femoral proximal mid and distal superficial femoral and popliteal vein these vessels show echogenic material on only partially compress. Pt was also having intractable pain that included his LLE and left groin with associated edema. He was started on heparin gtt. Pt responded well to treatment, on day of discharge he was transitioned to Eliquis and instructed to take daily. 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 Pt verbalized understanding. F/u w/ pcp in 1 week. Vital Signs: Vital Signs (72 hours) 10/17/19 14:27 10/17/19 14:30 10/17/19 14:35 Temperature Pulse Rate 65 62 64 Respiratory Rate 23 27 H 29 H Blood Pressure 212/96 193/90 O2 Sat by Pulse Oximetry 99 99 99 10/17/19 14:45 10/17/19 15:00 10/17/19 15:15 Temperature Pulse Rate 77 68 84 Respiratory Rate 37 H 33 H 46 H Blood Pressure 181/80 O2 Sat by Pulse Oximetry 99 94 L 96 10/17/19 15:30 10/17/19 15:45 10/17/19 16:00 Temperature Pulse Rate 81 69 66 Respiratory Rate 39 H 22 19 Blood Pressure O2 Sat by Pulse Oximetry 96 96 98 10/17/19 16:01 10/17/19 16:15 10/17/19 16:30 Temperature 98.8 F Pulse Rate 68 62 62 Respiratory Rate 30 H 19 20 Blood Pressure 133/63 O2 Sat by Pulse Oximetry 96 96 96 10/17/19 16:45 10/17/19 17:04 10/17/19 17:15 Temperature Pulse Rate 60 63 59 L Respiratory Rate 22 22 Blood Pressure O2 Sat by Pulse Oximetry 96 96 10/17/19 17:30 10/17/19 17:45 10/17/19 17:51 Temperature Pulse Rate 73 71 69 Respiratory Rate 40 H 35 H 34 H Blood Pressure 156/81 O2 Sat by Pulse Oximetry 96 97 96 10/17/19 18:00 10/17/19 20:00 10/17/19 22:00 Temperature 98.1 F Pulse Rate 71 62 Respiratory Rate 24 18 Blood Pressure 132/61 O2 Sat by Pulse Oximetry 97 96 10/17/19 23:00 10/18/19 00:00 10/18/19 01:00 Temperature 98.9 F Pulse Rate 57 L 53 L 53 L Respiratory Rate 20 27 H 18 Blood Pressure 139/58 109/54 131/60 O2 Sat by Pulse Oximetry 96 95 97 10/18/19 02:00 10/18/19 03:00 10/18/19 04:00 Temperature 98.1 F Pulse Rate 55 L 56 L 56 L Respiratory Rate 18 18 18 Blood Pressure 154/67 138/65 122/59 O2 Sat by Pulse Oximetry 95 94 L 96 10/18/19 05:00 10/18/19 06:00 Temperature Pulse Rate 59 L 54 L Respiratory Rate 14 16 Blood Pressure 115/59 141/60 O2 Sat by Pulse Oximetry 97 96 Labs: Laboratory Last Values WBC 5.0 X10^3/uL (3.6-10.0) 10/18/19 03:22 RBC 4.49 X10^6/uL (4.7-6.0) L 10/18/19 03:22 Hgb 14.0 g/dL (13.5-18.0) 10/18/19 03:22 Hct 41.5 % (42.0-54.0) L 10/18/19 03:22 MCV 92.3 fL (80.0-100.0) 10/18/19 03:22 MCH 31.2 pg (27.0-34.0) 10/18/19 03:22 MCHC 33.8 g/dL (33.0-35.0) 10/18/19 03:22 RDW 14.3 % (11.6-16.5) 10/18/19 03:22 Plt Count 145 X10^3/uL (150.0-450.0) L 10/18/19 03:22 MPV 9.0 fL (7.4-11.0) 10/18/19 03:22 Neut % (Auto) 54.3 % (42.0-75.0) 10/18/19 03:22 Lymph % (Auto) 28.6 % (21.0-51.0) 10/18/19 03:22 [place] % (Auto) 8.2 % (0.0-13.0) 10/18/19 03:22 Eos % (Auto) 8.0 % (0.9-2.9) H 10/18/19 03:22 Baso % (Auto) 0.9 % (0.2-1.0) 10/18/19 03:22 Neut # (Auto) 2.7 x10^3/uL (2.2-4.8) 10/18/19 03:22 Lymph # (Auto) 1.4 X10^3/uL (1.3-2.9) 10/18/19 03:22 [place] # (Auto) 0.4 x10^3/uL (0.3-0.8) 10/18/19 03:22 Eos # (Auto) 0.4 x10^3/uL (0.0-0.2) H 10/18/19 03:22 Baso # (Auto) 0.0 X10^3/uL (0.0-0.1) 10/18/19 03:22 Absolute Nucleated RBC 0.1 /100WBC 10/18/19 03:22 PT 12.8 SECONDS (11.8-14.3) 10/17/19 14:56 INR Target Range - 10/17/19 14:56 INR 1.00 (0.8-1.3) 10/17/19 14:56 APTT 70.4 SECONDS (22.9-36.5) H 10/18/19 03:22 PTT Comment - 10/18/19 03:22 Sodium 142 mmol/L (136-145) 10/18/19 03:22 Corrected Sodium TNP 10/18/19 03:22 Potassium 3.6 mmol/L (3.5-5.1) 10/18/19 03:22 Chloride 106 mmol/L (98-107) 10/18/19 03:22 Carbon Dioxide 29.7 mmol/L (21-32) 10/18/19 03:22 BUN 24 mg/dL (7-18) H 10/18/19 03:22 Creatinine 1.16 mg/dL (0.70-1.30) 10/18/19 03:22 Est GFR (MDRD) Af Amer > 60 (>60) 10/18/19 03:22 Est GFR (MDRD) Non-Af > 60 (>60) 10/18/19 03:22 Glucose 92 mg/dL (65-99) 10/18/19 03:22 POC Glucose (mg/dL) 90 mg/dL (65-99) 10/18/19 05:35 Calcium 8.3 mg/dL (8.5-10.1) L 10/18/19 03:22 Corrected Calcium 9.0 mg/dL (8.5-10.1) 10/18/19 03:22 Total Bilirubin 0.60 mg/dL (0.2-1.0) 10/18/19 03:22 AST 16 Units/L (15-37) 10/18/19 03:22 ALT 18 Units/L (12-78) 10/18/19 03:22 Alkaline Phosphatase 45 Units/L (46-116) L 10/18/19 03:22 Total Protein 5.8 g/dL (6.4-8.2) L 10/18/19 03:22 Albumin 3.1 g/dL (3.4-5.0) L 10/18/19 03:22 Globulin 2.7 g/dL (2.5-4.5) 10/18/19 03:22 Albumin/Globulin Ratio 1.1 Ratio (1.1-2.1) 10/18/19 03:22 Reason For Visit: DVT W/ PARTIALLY OCCLUSIVE THROMBUS IN LFT COMMON Discharge Date Discharge Date: 10/18/19 Discharge Diagnosis All Active Problems (Updated 10/17/19 @ 15:10 by Ab Dinh) Intractable pain (Acute) Candidal intertrigo (Acute) Leg pain, left (Acute) Edema leg (Acute) PVD (peripheral vascular disease) (Acute) BPH (benign prostatic hyperplasia) (Acute) Hyperlipidemia (Acute) CVA (cerebral vascular accident) (Chronic) Hypertension (Acute) Diabetes (Acute) Deep venous thrombosis of left femoral vein (Acute) Diverticulosis of colon (Acute) Gallstone (Acute) Plan of Treatment: Continue with present treatment and follow up plan. Pt is to keep follow up appointment as instructed and take medications as ordered. Discharge Medications Discharge Medications: No Known Drug Allergies Allergy (Verified 01/10/19 09:15) CONTINUE taking the following medications amlodipine 5 mg PO HS 10/17/19 [History] aspirin [Aspir-81] 81 mg PO DAILY 10/17/19 [History] carboxymethylcellulose sodium 1 drp OPHTHALMIC (EYE) QID 10/17/19 [History] cetirizine 5 mg PO QHS 10/17/19 [History] cyanocobalamin (vitamin B-12) 1,000 mcg PO DAILY 10/17/19 [History] diclofenac sodium 4 g TOPICAL QID 10/17/19 [History] gabapentin 400 mg PO TID 10/17/19 [History] hydrocodone-acetaminophen 1 tab PO Q6H PRN 10/17/19 [History] lisinopril 10 mg PO DAILY 10/17/19 [History] mirtazapine 15 mg PO QHS 10/17/19 [History] pioglitazone 30 mg PO DAILY 10/17/19 [History] New Prescriptions Eliquis 5 mg PO BID 30 Days #60 tab 10/18/19 [Rx] glipizide 5 mg PO BID 30 Days #60 tab 10/18/19 [Rx] nystatin 1 applic TOP BID 14 Days #30 g 10/18/19 [Rx] pravastatin 20 mg PO HS 30 Days #15 tab 10/18/19 [Rx] Follow up and Referral Follow Up: 1 Week Discharge Disposition Assessment: Patient stable no acute distress noted at time of discharge. Discharge Disposition: Home
[2019-10-18] MEDS ORDERED: ELIQUIS PO SCH (09:00)
[2019-10-18] MEDS ORDERED: NORVASC TAB 10 MG PO SCH (09:00)
[2019-10-18] MEDS ORDERED: ZESTRIL TAB 5 MG PO SCH (09:00)
[2019-10-18] MEDS ORDERED: ASPIRIN 81 MG CHEWTAB PO SCH (09:00)
[2019-10-18] MEDS: NYSTATIN POWDER TOP SCH (09:01)
[2019-10-18 12:33] VITALS: BP 155/78
== END 2019-10-18 12:10 | disposition home health service (06) | DRG 301 ==
LOC: ICU 14:04
PROVIDERS: ADMIT Family Medicine; ATTEND Family Medicine
DX: R60.0 Localized edema; M79.605 Pain in left leg; Z79.01 Long term (current) use of anticoagulants; E78.2 Mixed hyperlipidemia; I25.10 Atherosclerotic heart disease of native coronary artery without angina pectoris; I82.412 Acute embolism and thrombosis of left femoral vein; R10.32 Left lower quadrant pain; E11.65 Type 2 diabetes mellitus with hyperglycemia; I82.432 Acute embolism and thrombosis of left popliteal vein; B37.2 Candidiasis of skin and nail; I10 Essential (primary) hypertension
CPT/HCPCS: 36415; 80053; 85025; 85610; 85730; 93971; A4222; J1644; J1815

== ENCOUNTER 2019-12-28 08:35 | Inpatient (IN) ==
[2019-12-28 08:50] VITALS: BMI 26.6
[2019-12-28] MEDS ORDERED: CATAPRES TAB 0.2 MG PO ONE (09:03)
--- NOTE | 2019-12-28 09:03 | DR.WEAKNES ---
HPI - Time Seen Time seen: 08:52 - Primary Care Physician Primary Care Physician: SAUL - Complaints Chief Complaint Doctors Comments: Patient states he was unable to get out of bed today because of weakness on his left side. States he has had a stroke about threes years ago with left side weakness but he could get up and walk with his walker and take care of himself at home but today he was unable to get out of bed because his left arm and legs were to weak. States he is a patient of Dr. Dinh and he takes medicines for his blood pressure but was unable to take it today because he could not get to them. He denies any recent falls but states he his his left arm at home on the door and his neighbor bandaged it for him days ago. He has not had a recent tetanus. States he was in the [facility] before but want to go to rehab instead of the [facility] this time. States he has had blood clot in his left leg before and he is taking a blood thinner but he do not know its name. He denies chest pain or SOB. He smokes three cigars daily and drinks two Scotch mixed drinks weekly. States he is able to move his left leg a little more since being in emergency room. Chief Complaint:: EMS STATES THEY WERE CALLED OUT TO A FALL THIS MORNING WITH PATIENT. PT WAS NOTED TO HAVE WEAKNESS TO LT SIDE. PT STATES HE HAS HAD A PREVIOUS STROKE AND HAS SOME FUNCTION ON HIS LEFT SIDE BUT PT DOES NOT HAVE ANY FUNCTION AT ALL THIS MORNING. PT LIVES ALONE AND GETS AROUND WITH HIS WHEELCHAIR. PT STATES THIS MORNING HE WAS MORE WEAK ON THE LT SIDE AND FELL. - COVID-19 Coronavirus risk:travel/contact w/high risk person: Yes Has patient experienced Coronavirus symptoms: Yes - Reviewed Nurses Notes Reviewed: Yes - Source History Provided: Patient - Mode of Arrival Mode of Arrival: EMS - Timing Onset of Chief Complaint: 12/28/19 Since onset, symptoms are:: Improved Symptom Onset: Unknown Onset of Symptoms Start Date: 12/28/19 - Duration Duration: Constant Duration: Unknown - Context Onset: Spontaneous, While asleep Symptoms: Weakness, Slurred Speech, Difficulty walking History of: CVA, Anticoagulant Use Stroke Symptoms: Weakness of limb, Slurring - Location Weakness Location: Left, Arm, Leg - Associated Signs and Symptoms Associated Signs and Symptoms: None PMH - PMH Past Medical History: Yes Past Medical History: Angina, Coronary Artery Disease, Hypertension, Diabetes, CVA, Arthritis Past Surgical History: Yes Surgical History: Other - Family History History of Family Medical Conditions: No - Social History Does patient currently use any type of tobacco product: Yes Have you used tobacco products in the last 12 months: Yes Type of Tobacco Use: Cigars Does any household member use tobacco: Yes Alcohol Use: DAILY Do you use any recreational Drugs:: No Lives With: Alone Lives Where: Home - infectious screening In the last 2 months have you had wt loss of >10#?: NO Have you had fever, night sweats or hemotysis?: No Have you traveled outside the country in the last 6 months?: No Isolation: Standard ROS - Review of Systems Constitutional: No Symptoms Reported Eyes: No Symptoms Reported ENTM: No Symptoms Reported Respiratoy: No Symptoms Reported Cardiovascular: No Symptoms Reported. negative: See HPI, Chest Pain, Edema, Palpitations, Syncope, Cyanosis, Skin Mottling, Other Gastrointestinal/Abdominal: No Symptoms Reported Genitourinary: No Symptoms Reported Neurological: No Symptoms Reported, Weakness, Problems Walking Musculoskeletal: No Symptoms Reported Integumentary: No Symptoms Reported Hematologic/Lymphatic: No Symptoms Reported Endocrine: No Symptoms Reported Psychiatric: No Symptoms Reported. negative: See HPI, Anxiety, Depression, Hallucinations, Excessive crying, Suicidal, Other PE - General Limitations: No Limitations General Appearance: Alert, In Distress (moderate) - Head Head Exam: Normal Inspection, Atraumatic, Normocephalic Head Exam Physical: negative: Laceration, Abrasion, Contusion, Hematoma, Raccoon Eyes, Arceo's Sign, Tenderness of Temporal Artery, CSF Rhinorrhea, CSF O torrhea, Other - Eyes Eye exam: Normal Appearance, PERRL, EOMI. negative: Scleral Icterus, Conjunctival Injection, Nystagmus, Miosis, Mydrasis, Periorbital Swelling, Periorbital Tenderness, Other Eyelids: Normal Inspection: Bilateral Pupils: Regular, Round: Bilateral, Reactive: Bilateral Sclera/Conjunctival: Normal Inspection: Bilateral Anterior Chamber: Normal Inspection: Bilateral - ENT ENT Exam: Normal Exam, Normal Oropharynx, Normal External Ear Exam, Mucous Membranes Moist, TM's Normal Bilaterally Mouth Exam: Normal Inspection. negative: Drooling, Trismus, Lip Swelling, Tongue Elevation, Tongue Swelling, Laceration, Other Throat Exam: Normal Inspection. negative: Tonsillar Erythema, Tonsillomegaly, Tonsillar Exudate, R Peritonsillar Mass, L Peritonsillar Mass, Muffled Voice, Other - Neck Neck Exam: Normal Inspection, Full ROM, Trachea Midline. negative: Tenderness, Meningismus, Lymphadenopathy, Thyromegaly, Other - Chest Chest Inspection: Normal Inspection, Symmetric Chest Wall Rise - Respiratory Respiratory Exam: Normal Lung Sounds Bilat Respiratory Exam: Bilateral Clear to Auscultation - Cardiovascular Cardiovascular Exam: Regular Rate, Normal Rhythm, Normal Heart Sounds - Abdominal Exam Abdominal Exam: Normal Inspection, Normal Bowel Sounds, Soft. negative: Distention, Tenderness, Guarding, Rebound, Rigidity, Dimnished Bowel Sounds, Hyperactive Bowel Sounds, Hypoactive Bowel Sounds, Organomegaly, Trauma, Incision, Ascites, Mass, Bruit, Pulsatile Mass, Hernia, Other Abdominal Tenderness: negative: RUQ, RLQ, LUQ, LLQ, Epigastrium, Suprapubic, Diffuse, Mild, Moderate, Severe, Other - Extremities Extremities Exam: Normal Inspection, Full ROM, Normal Capillary Refill, Edema (left leg with 2+edema; 4 cm abrasion with scab left lower leg). negative: Tenderness (left elbow with abrasion; erythema; pealing skin; hyperpigmented skin arms), Calf Tenderness - Back Back Exam: Normal Inspection, Full ROM. negative: Tenderness, (R) CVA Tenderness, (L) CVA Tenderness, Muscle Spasm, Paraspinal Tenderness, Vertebral Tenderness, Rashes, (R) Sciatic Notch Tenderness, (L) Sciatic Notch Tendern, (R) Straight Leg Raise, (L) Straight Leg Raise, Other - Neurologic Neurological Exam: Alert, Oriented X3, Reflexes Normal. negative: CN II-XII Intact (left hemiparesis; right hand and leg 5/5; left arm 2-3/5' ;left leg 2/5), Normal Gait (gait not tested) Patient Oriented To: Person, Place, Time Speech: Fluid Speech Cranial Nerve Exam: EOM Function (II, III, IV, ): Normal, Facial Sensation (V): Normal, Facial Palsy (VII): Normal, Gag reflex (XI): Normal, Spinal Accessory Function (XI): Normal, Tongue Deviation: Left Abnormal (slightly to the left) Cerebellar Function: negative: Normal Gait (not tested) Motor Strength - LUE: 3/5 Motor Strength - RUE: 5/5 Motor Strength - LLE: 2/5 Motor Strength - RLE: 5/5 Upper Motor Neuron Exam: Babinski Sign: Normal Sensory Exam Upper Extremity: Light Touch: Normal Sensory Exam Lower Extremity: Light Touch: Normal DTR: bicep (L): 1+, bicep (R): 1+, Patellar (L): 2+, patellar (R): 2+ - Psychiatric Psychiatric Exam: Normal Affect, Normal Mood. negative: Depressed, Agitated, Anxious, Flat Affect, Manic, Homicidal Ideation, Suicidal Ideation, Other - Skin Skin Exam: Warm, Dry, Intact, Normal Color, Erythema (left elbow with peeling and abrasion; left leg with swelling;large scab.) - Vital Signs Vitals: Temperature 97.9 F Pulse Rate [Right Radial] 61 Pulse Rate 52 Respiratory Rate 22 Blood Pressure [Right Arm] 219/100 Blood Pressure 203/114 O2 Sat by Pulse Oximetry 97 Course - Reevaluation 1st: Improved - Consultation Called: 12:18 Call Returned: 12:18 (Dr. Sharp to admit) - Education/Counseling Education/Counseling: Patient Educated On: Treatment, Diagnosis, Needs for Follow Up ROR - Labs Reviewed Laboratory Results Reviewed?: Yes Result Diagrams: 12/28/19 08:55 12/28/19 08:55 - XRAY XRAY Interpreted by: Radiologist (CTA chest: Scattered bilateral subsegmental pulmonary thromboemboli. Minimal right upper lobe ground-glass,suggesting infectious or inflammatory pneumonitis.) - EKG Rate: 64 Nora: Normal Rhythm: PACs Block: IVCD ST: Old, Inf, Infarct - Labs Reviewed Laboratory: WBC 6.4 X10^3/uL (3.6-10.0) 12/28/19 08:55 RBC 5.15 X10^6/uL (4.7-6.0) 12/28/19 08:55 Hgb 16.0 g/dL (13.5-18.0) 12/28/19 08:55 Hct 47.6 % (42.0-54.0) 12/28/19 08:55 MCV 92.3 fL (80.0-100.0) 12/28/19 08:55 MCH 31.2 pg (27.0-34.0) 12/28/19 08:55 MCHC 33.7 g/dL (33.0-35.0) 12/28/19 08:55 RDW 13.4 % (11.6-16.5) 12/28/19 08:55 Plt Count 142 X10^3/uL (150.0-450.0) L 12/28/19 08:55 MPV 9.1 fL (7.4-11.0) 12/28/19 08:55 Neut % (Auto) 74.0 % (42.0-75.0) 12/28/19 08:55 Lymph % (Auto) 13.1 % (21.0-51.0) L 12/28/19 08:55 [place] % (Auto) 9.8 % (0.0-13.0) 12/28/19 08:55 Eos % (Auto) 2.6 % (0.9-2.9) 12/28/19 08:55 Baso % (Auto) 0.5 % (0.2-1.0) 12/28/19 08:55 Neut # (Auto) 4.7 x10^3/uL (2.2-4.8) 12/28/19 08:55 Lymph # (Auto) 0.8 X10^3/uL (1.3-2.9) L 12/28/19 08:55 [place] # (Auto) 0.6 x10^3/uL (0.3-0.8) 12/28/19 08:55 Eos # (Auto) 0.2 x10^3/uL (0.0-0.2) 12/28/19 08:55 Baso # (Auto) 0.0 X10^3/uL (0.0-0.1) 12/28/19 08:55 Absolute Nucleated RBC 0.1 /100WBC 12/28/19 08:55 PT 14.2 SECONDS (11.8-14.3) 12/28/19 09:30 INR Target Range - 12/28/19 09:30 INR 1.13 (0.8-1.3) 12/28/19 09:30 APTT 27.5 SECONDS (22.9-36.5) 12/28/19 09:30 PTT Comment - 12/28/19 09:30 D-Dimer 1050 ng/mL (0-400) H* 12/28/19 08:55 Sodium 139 mmol/L (136-145) 12/28/19 08:55 Corrected Sodium 144 mmol/L (136-145) 12/28/19 08:55 Potassium 3.5 mmol/L (3.5-5.1) 12/28/19 08:55 Chloride 102 mmol/L (98-107) 12/28/19 08:55 Carbon Dioxide 26.9 mmol/L (21-32) 12/28/19 08:55 BUN 19 mg/dL (7-18) H 12/28/19 08:55 Creatinine 1.14 mg/dL (0.70-1.30) 12/28/19 08:55 Est GFR (MDRD) Af Amer > 60 (>60) 12/28/19 08:55 Est GFR (MDRD) Non-Af > 60 (>60) 12/28/19 08:55 Glucose 301 mg/dL (65-99) H 12/28/19 08:55 Calcium 8.6 mg/dL (8.5-10.1) 12/28/19 08:55 Corrected Calcium 9.2 mg/dL (8.5-10.1) 12/28/19 08:55 Magnesium 1.5 mg/dL (1.7-2.9) L 12/28/19 08:55 Total Bilirubin 1.80 mg/dL (0.2-1.0) H 12/28/19 08:55 AST 16 Units/L (15-37) 12/28/19 08:55 ALT 13 Units/L (12-78) 12/28/19 08:55 Alkaline Phosphatase 67 Units/L (46-116) 12/28/19 08:55 Creatine Kinase 60 Units/L (39-308) 12/28/19 08:55 CK-MB (CK-2) 1.4 ng/mL (0-4.0) 12/28/19 08:55 CK/CKMB % Calc 2.3 % (<4) 12/28/19 08:55 Troponin I < 0.02 ng/mL (0-1.5) 12/28/19 08:55 Total Protein 6.4 g/dL (6.4-8.2) 12/28/19 08:55 Albumin 3.3 g/dL (3.4-5.0) L 12/28/19 08:55 Globulin 3.1 g/dL (2.5-4.5) 12/28/19 08:55 Albumin/Globulin Ratio 1.1 Ratio (1.1-2.1) 12/28/19 08:55 - XRAY Xray Findings: CT Brain: Chronic right frontoparietal infarct. No acute intracranial hemorrhage. Partial left mastoid effusion. U/S left leg: Persistent thrombus from the common femoral through themid superficial femoral vein Resolution of the thrombus in the caudal superficial femoral view and popliteal viein. CT brain: Chronic right frontoparietal infarct. No acute intracranial hemorrhage. Partial left mastoid effusion. (BETSY LUJAN) Opioid - Opioid Risk Tool Age (Amador box if 16-45): No History of Preadolescent Sexual Abuse: No Total: 0 Total Score Risk Category: Low Risk - Diagnosis Discharge Problem: Left hemiparesis, Bilateral pulmonary embolism, Accelerated hypertension, Hypomagnesemia, Sinus bradycardia CVA (cerebral vascular accident) Qualifiers: CVA mechanism: unspecified Qualified Code(s): I63.9 - Cerebral infarction, unspecified Diabetes mellitus Qualifiers: Diabetes mellitus type: type 2 Abrasion of left arm Qualifiers: Encounter type: initial encounter Qualified Code(s): S40.812A - Abrasion of left upper arm, initial encounter Deep vein thrombosis, lower left extremity Qualifiers: Affected thrombotic vein of extremity: femoral Chronicity: chronic Qualified Code(s): I82.512 - Chronic embolism and thrombosis of left femoral vein - Discharge Plan Disposition: ADMITTED INPATIENT Condition: Stable - Follow ups/Referrals Follow ups/Referrals: Ab Dinh [Primary Care Provider] - 3 days - Instructions
[2019-12-28] MEDS ORDERED: CATAPRES TAB 0.2 MG ONE (09:06)
[2019-12-28 09:11] LABS: BASOPHILS % (AUTO) 0.5 % (0.2-1.0); EOSINOPHILS # (AUTO) 0.2 x10^3/uL (0.0-0.2); EOSINOPHILS % (AUTO) 2.6 % (0.9-2.9); HEMATOCRIT 47.6 % (42.0-54.0); LYMPHOCYTES # (AUTO) 0.8 X10^3/uL (1.3-2.9); LYMPHOCYTES % (AUTO) 13.1 % (21.0-51.0); MEAN CORPUSCULAR HEMOGLOBIN 31.2 pg (27.0-34.0); MEAN CORPUSCULAR HGB CONC 33.7 g/dL (33.0-35.0); MEAN CORPUSCULAR VOLUME 92.3 fL (80.0-100.0); MEAN PLATELET VOLUME 9.1 fL (7.4-11.0); MONOCYTES # (AUTO) 0.6 x10^3/uL (0.3-0.8); MONOCYTES % (AUTO) 9.8 % (0.0-13.0); NEUTROPHILS # (AUTO) 4.7 x10^3/uL (2.2-4.8); PLATELET COUNT 142 X10^3/uL (150.0-450.0); RED BLOOD COUNT 5.15 X10^6/uL (4.7-6.0); RED CELL DISTRIBUTION WIDTH 13.4 % (11.6-16.5); WHITE BLOOD COUNT 6.4 X10^3/uL (3.6-10.0)
[2019-12-28 09:28] LABS: BLOOD UREA NITROGEN 19 mg/dL (7-18); CALCIUM 8.6 mg/dL (8.5-10.1); CARBON DIOXIDE 26.9 mmol/L (21-32); CHLORIDE 102 mmol/L (98-107); COR NA(FOR HYPERGLY) 144 mmol/L (136-145); CREATININE 1.14 mg/dL (0.70-1.30); SODIUM 139 mmol/L (136-145); TROPONIN I < 0.02 ng/mL (0-1.5); eGFR NON BLACK RACES > 60 (>60)
[2019-12-28 09:32] LABS: ALANINE AMINOTRANSFERASE 13 Units/L (12-78); ALBUMIN 3.3 g/dL (3.4-5.0); ALKALINE PHOSPHATASE 67 Units/L (46-116); ASPARTATE AMINO TRANSFERASE 16 Units/L (15-37); CKMB % 2.3 % (<4); COR CA(FOR HYPOALB) 9.2 mg/dL (8.5-10.1); CREATINE KINASE 60 Units/L (39-308); CREATINE KINASE MB 1.4 ng/mL (0-4.0); MAGNESIUM 1.5 mg/dL (1.7-2.9); TOTAL PROTEIN 6.4 g/dL (6.4-8.2)
--- NOTE | 2019-12-28 09:42 | CT ---
HISTORYPT WAS NOTED TO HAVE SEVERE WEAKNESS TO LT SIDE. PT STATES HE HAS HAD A PREVIOUS STROKE AND HAS SOME FUNCTION ON HIS LEFT SIDE BUT PT DOES NOT HAVE ANY FUNCTION AT ALL THIS MORNINGSTUDYCT BRAIN W/O CONCOMPARISONNone availableTECHNIQUECT images of the head were obtained without IV contrast. Automatic exposure control was utilized.FINDINGSThe study is moderately degraded by motion. There is chronic right frontoparietal encephalomalacia compatible with remote KULDIP-MCA watershed infarct. There is no evidence for acute bleed, mass effect, or abnormal extra-axial collection. There is moderate global atrophy with concomitant ventricular and sulcal enlargement. No acute osseous abnormality. The paranasal sinuses and right-sided mastoid air cells are grossly clear. There is partial left mastoid effusion.IMPRESSIONModerately motion degraded study demonstrating chronic right frontoparietal infarct. No acute intracranial hemorrhage.Partial left mastoid effusion.Consider MRI if there is concern for acute infarct and it will make a difference in patient management.Electronically signed by: ELANA HOLLAND (Dec 28, 2019 09:41:01)
--- NOTE | 2019-12-28 09:49 | RAD ---
HISTORYPT WAS NOTED TO HAVE SEVERE WEAKNESS TO LT SIDE. PT STATES HE HAS HAD A PREVIOUS STROKE AND HAS SOME FUNCTION ON HIS LEFT SIDE BUT PT DOES NOT HAVE ANY FUNCTION AT ALL THIS MORNINGSTUDYCHEST, 1 [id number]/26/2019FINDINGSCardiac silhouette size is stable. The lungs are hypoinflated but grossly clear without overt edema or dense infiltrates. No significant pleural effusion or pneumothorax.IMPRESSIONNo acute chest process or significant change from prior.Electronically signed by: ELANA HOLLAND (Dec 28, 2019 09:48:11)
[2019-12-28] MEDS ORDERED: ADACEL or BOOSTRIX TDaP VACCINE IM ONE ×2 (10:44→12:35)
--- NOTE | 2019-12-28 10:55 | VAS ---
HISTORYLT LEG WEAKNESS, PT HAS PREVIOUS DVT LT LEGSTUDYLOWER EXT VENOUS, [id number]/30/2020TECHNIQUEMultiple etienne scale and color flow Doppler images of the deep venous system were obtained of the left lower extremity.FINDINGSThe deep venous system of the left lo wer extremity was evaluated from the level of the common femoral vein through the popliteal vein. The re is again occlusive thrombus within the left common femoral vein and mid superficial femoral vein. The thrombus within the caudal superficial femoral vein and popliteal vein has resolved.IMPRESSIONPer sistent thrombus from the common femoral through the mid superficial femoral vein. Resolution of the thrombus in the caudal superficial femoral vein and popliteal vein.Electronically signed by: ELANA KENT (Dec 28, 2019 10:53:57)
[2019-12-28] MEDS ORDERED: LASIX IVP ONE ×2 (11:00→12:34)
--- NOTE | 2019-12-28 11:51 | CT ---
HISTORYABNORMAL D-DIMERSTUDYCTA CHESTCOMPARISONNoneTECHNIQUEMultiple axial images of the chest were obtained from the thoracic inlet to the upper abdomen after the administration of IV contrast. 3D reconstructions utilizing axial MIPS imaging was performed and reviewed. Dose reduction techniques including Automated Exposure Control (AEC) and adjustment of mA and kV were utilized.FINDINGSThere is yesj-ih-lubkobyz thoracic spine degenerative change. No acute osseous abnormality. The upper abdomen is grossly unremarkable.The heart is mildly prominent. No significant pericardial thickening or pericardial effusion. Scattered coronary and thoracic aortic atherosclerotic calcifications are noted. No pathologically enlarged intrathoracic lymph nodes are identified. There are filling defects within multiple subsegmental pulmonary artery branches bilaterally (for example image 20, 23, 40, and 62, series 4). No central or large proximal pulmonary arterial filling defect. There is no secondary evidence for overt right heart strain. There is some minimal patchy ground-glass within the peripheral right upper lobe. The lungs are otherwise essentially clear. No pleural effusion or pneumothorax. The major airways are patent.IMPRESSIONScattered bilateral subsegmental pulmonary thromboemboli.Minimal right upper lobe ground-glass, suggesting infectious or inflammatory pneumonitis.Electronically signed by: ELANA HOLLAND (Dec 28, 2019 11:49:52)
[2019-12-28] MEDS ORDERED: ELIQUIS PO STA (12:07)
[2019-12-28] MEDS ORDERED: ROCEPHIN VIAL 1 GRAM 1 G in NS 100 ML IV + SPIKE MINIBAG* 100 ML IV ONE (12:08)
[2019-12-28] MEDS ORDERED: MAGNESIUM SULFATE 1 GRAM/100 mL PREMIX 1 G/100 ML BAG IV ONE ×2 (12:23→16:59)
[2019-12-28] MEDS ORDERED: ROCEPHIN VIAL 1 GRAM ONE (12:34)
[2019-12-28] MEDS ORDERED: NS 100 ML IV + SPIKE MINIBAG* 100 ML IV ONE (12:35)
[2019-12-28] MEDS ORDERED: NS 250 ML IV 250 ML IV ONE (12:38)
[2019-12-28] MEDS ORDERED: DUONEB 0.5 MG/3 MG (3 mL) NEB PRN (14:03)
[2019-12-28] MEDS: ACTOS PO SCH (16:58)
[2019-12-28] MEDS: HumuLIN R SC PRN (17:00)
[2019-12-28] MEDS: GLUCOPHAGE XR 24-HR PO SCH ×2 (18:52→20:44)
[2019-12-28] MEDS: ELIQUIS PO SCH (20:44)
[2019-12-28] MEDS: PRAVACHOL PO SCH (20:45)
[2019-12-28] MEDS: ULTRAM PO PRN (20:45)
[2019-12-29 05:03] LABS: BASOPHILS % (AUTO) 0.6 % (0.2-1.0); EOSINOPHILS # (AUTO) 0.1 x10^3/uL (0.0-0.2); EOSINOPHILS % (AUTO) 1.9 % (0.9-2.9); HEMATOCRIT 44.6 % (42.0-54.0); HEMOGLOBIN 15.2 g/dL (13.5-18.0); LYMPHOCYTES # (AUTO) 1.1 X10^3/uL (1.3-2.9); LYMPHOCYTES % (AUTO) 17.1 % (21.0-51.0); MEAN CORPUSCULAR HEMOGLOBIN 31.4 pg (27.0-34.0); MEAN CORPUSCULAR VOLUME 92.4 fL (80.0-100.0); MEAN PLATELET VOLUME 9.9 fL (7.4-11.0); MONOCYTES # (AUTO) 0.6 x10^3/uL (0.3-0.8); MONOCYTES % (AUTO) 9.3 % (0.0-13.0); NEUTROPHILS # (AUTO) 4.8 x10^3/uL (2.2-4.8); NEUTROPHILS % (AUTO) 71.1 % (42.0-75.0); PLATELET COUNT 149 X10^3/uL (150.0-450.0); RED BLOOD COUNT 4.82 X10^6/uL (4.7-6.0); RED CELL DISTRIBUTION WIDTH 13.7 % (11.6-16.5); WHITE BLOOD COUNT 6.7 X10^3/uL (3.6-10.0)
[2019-12-29 05:13] LABS: ALANINE AMINOTRANSFERASE 11 Units/L (12-78); ALBUMIN 3.1 g/dL (3.4-5.0); ALKALINE PHOSPHATASE 61 Units/L (46-116); ASPARTATE AMINO TRANSFERASE 14 Units/L (15-37); BLOOD UREA NITROGEN 18 mg/dL (7-18); CALCIUM 8.3 mg/dL (8.5-10.1); CARBON DIOXIDE 30.3 mmol/L (21-32); CHLORIDE 101 mmol/L (98-107); CHOL/HDL RATIO 3.3 (0.0-5.0); CHOLESTEROL 137 mg/dL (0-200); COR NA(FOR HYPERGLY) 142 mmol/L (136-145); CREATININE 1.33 mg/dL (0.70-1.30); HDL CHOLESTEROL 41 mg/dL (40-60); SODIUM 139 mmol/L (136-145); TOTAL PROTEIN 6.2 g/dL (6.4-8.2); TRIGLYCERIDES 112 mg/dL (0-150); eGFR NON BLACK RACES 55 (>60)
[2019-12-29] MEDS: HumuLIN R SC PRN ×2 (05:39→13:00)
[2019-12-29] MEDS: ROCEPHIN VIAL 1 GRAM 1 G in NS 100 ML IV + SPIKE MINIBAG* 100 ML IV SCH (08:50)
[2019-12-29] MEDS: GLUCOPHAGE XR 24-HR PO SCH ×2 (08:51→20:31)
[2019-12-29] MEDS: ELIQUIS PO SCH ×2 (08:51→20:31)
[2019-12-29] MEDS: ACTOS PO SCH (08:52)
[2019-12-29] MEDS ORDERED: NS 1000 ML 500 ML IV ONE (11:38)
[2019-12-29] MEDS ORDERED: NS 500 ML IV 500 ML IV ONE (18:29)
[2019-12-29] MEDS: K-DUR TAB 20 MEQ PO SCH ×2 (18:32→20:31)
[2019-12-29] MEDS: PRAVACHOL PO SCH (20:31)
[2019-12-29] MEDS: ULTRAM PO PRN (20:32)
[2019-12-30 05:23] LABS: BASOPHILS % (AUTO) 0.4 % (0.2-1.0); EOSINOPHILS # (AUTO) 0.1 x10^3/uL (0.0-0.2); EOSINOPHILS % (AUTO) 2.2 % (0.9-2.9); HEMATOCRIT 44.3 % (42.0-54.0); HEMOGLOBIN 14.8 g/dL (13.5-18.0); LYMPHOCYTES # (AUTO) 1.1 X10^3/uL (1.3-2.9); LYMPHOCYTES % (AUTO) 17.2 % (21.0-51.0); MEAN CORPUSCULAR HGB CONC 33.4 g/dL (33.0-35.0); MEAN CORPUSCULAR VOLUME 92.8 fL (80.0-100.0); MEAN PLATELET VOLUME 9.1 fL (7.4-11.0); MONOCYTES # (AUTO) 0.6 x10^3/uL (0.3-0.8); MONOCYTES % (AUTO) 9.3 % (0.0-13.0); NEUTROPHILS # (AUTO) 4.7 x10^3/uL (2.2-4.8); NEUTROPHILS % (AUTO) 70.9 % (42.0-75.0); PLATELET COUNT 141 X10^3/uL (150.0-450.0); RED BLOOD COUNT 4.77 X10^6/uL (4.7-6.0); RED CELL DISTRIBUTION WIDTH 13.8 % (11.6-16.5); WHITE BLOOD COUNT 6.6 X10^3/uL (3.6-10.0)
[2019-12-30] MEDS: HumuLIN R SC PRN ×2 (05:31→21:38)
--- NOTE | 2019-12-30 05:44 | CT ---
CT head without contrastIndication: Possible stroke.COMPARISONApr2019TECHNIQUEAxial images from the skullbase to the vertex without contrast. Coronal and sagittal reformats provided.FINDINGSThere is large right cerebral infarct, within encephalomalacia, unchanged from the prior. There is atrophy and microangiopathy with bilateral basal ganglia hypodensities noted. No large area of hypoattenuation to suggest new acute infarction identified. Ex vacuo ventricular and sulcal enlargement is again noted. Review of bone windows shows minimal fluid in the left mastoid air cells, similar to the prior. Paranasal sinuses are clear otherwise. No osseous lesion identified.IMPRESSION1. No acute intracranial hemorrhage2. Mild atrophy, microangiopathy and encephalomalacia, similar to the prior. Consider MR imaging if there is concern for infarction and it would make a clinical difference to diagnose an acute stroke.Electronically signed by: ELADIO CLEMENT (Dec 30, 2019 05:43:52)
[2019-12-30 05:45] LABS: ALANINE AMINOTRANSFERASE 10 Units/L (12-78); ALBUMIN 2.9 g/dL (3.4-5.0); ALKALINE PHOSPHATASE 54 Units/L (46-116); ASPARTATE AMINO TRANSFERASE 10 Units/L (15-37); BLOOD UREA NITROGEN 26 mg/dL (7-18); CALCIUM 8.3 mg/dL (8.5-10.1); CARBON DIOXIDE 29.4 mmol/L (21-32); CHLORIDE 103 mmol/L (98-107); COR CA(FOR HYPOALB) 9.2 mg/dL (8.5-10.1); COR NA(FOR HYPERGLY) 143 mmol/L (136-145); CREATININE 1.43 mg/dL (0.70-1.30); SODIUM 141 mmol/L (136-145); TOTAL PROTEIN 5.9 g/dL (6.4-8.2); eGFR NON BLACK RACES 51 (>60)
--- NOTE | 2019-12-30 08:31 | PCM.PROG ---
Progress Note Progress Note for Day of Date of Exam: 12/30/19 Subjective Subjective: Pt is a 79 yo m pmhx HTN, DMT2, CVA, admitted for pulmonary embolism secondary to deep vein thrombosis and new CVA rule out. This morning pt is sitting up in bed. 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 He is on Eliquis 10mg BID x 7days and then 5mg BID. Labs/Imaging:CT head:no acute findings. CT chest:scattered b/l subsegmental pulmonary thromboemboli. Wbc 6.6, Hgb 14.8, Plt 141, Na 141, K 3.8, Cr 1.43. Will get MRI today due deficits noted on exam. PT to evaluate. Continue to monitor and follow up labs in the morning. Past Medical Family Social History Past Med/Fam/Surg Hx: No changes since H&P Allergies: Allergies No Known Drug Allergies Allergy (Verified 01/10/19 09:15) Review of Systems ROS: No change since H&P Vital Signs and I&O's Vital Signs: Temperature 97.8 F Pulse Rate [Right Brachial] 55 Pulse Rate [Right Radial] 61 Pulse Rate 55 Respiratory Rate 20 Blood Pressure [Right Arm] 170/74 Blood Pressure 194/89 O2 Sat by Pulse Oximetry 98 Intake and Output: Intake & Output 12/27/19 12/28/19 12/29/19 12/30/19 23:59 23:59 23:59 23:59 Intake Total 1550 / 1550 230 / 230 Output Total 400 / 400 Balance -390 / -390 1550 / 1550 230 / 230 Physical Exam Oriented: Normal Eyes: Normal Ear: Normal Nose: Normal Respiratory: Normal Cardiovascular: Bradycardia : Normal Auscultation: Bowel Sounds: Normal Palpation: Normal Tenderness: Normal Skin: Normal Musculoskeletal: Motor Deficit (Decrease strength LUE and LLE ) Mood Description: Calm Speech Pattern: Clear Laboratory and Diagnostics Result Diagrams: 12/30/19 04:14 12/30/19 04:14 Labs: Laboratory WBC 6.6 X10^3/uL (3.6-10.0) 12/30/19 04:14 RBC 4.77 X10^6/uL (4.7-6.0) 12/30/19 04:14 Hgb 14.8 g/dL (13.5-18.0) 12/30/19 04:14 Hct 44.3 % (42.0-54.0) 12/30/19 04:14 MCV 92.8 fL (80.0-100.0) 12/30/19 04:14 MCH 31.0 pg (27.0-34.0) 12/30/19 04:14 MCHC 33.4 g/dL (33.0-35.0) 12/30/19 04:14 RDW 13.8 % (11.6-16.5) 12/30/19 04:14 Plt Count 141 X10^3/uL (150.0-450.0) L 12/30/19 04:14 MPV 9.1 fL (7.4-11.0) 12/30/19 04:14 Neut % (Auto) 70.9 % (42.0-75.0) 12/30/19 04:14 Lymph % (Auto) 17.2 % (21.0-51.0) L 12/30/19 04:14 [place] % (Auto) 9.3 % (0.0-13.0) 12/30/19 04:14 Eos % (Auto) 2.2 % (0.9-2.9) 12/30/19 04:14 Baso % (Auto) 0.4 % (0.2-1.0) 12/30/19 04:14 Neut # (Auto) 4.7 x10^3/uL (2.2-4.8) 12/30/19 04:14 Lymph # (Auto) 1.1 X10^3/uL (1.3-2.9) L 12/30/19 04:14 [place] # (Auto) 0.6 x10^3/uL (0.3-0.8) 12/30/19 04:14 Eos # (Auto) 0.1 x10^3/uL (0.0-0.2) 12/30/19 04:14 Baso # (Auto) 0.0 X10^3/uL (0.0-0.1) 12/30/19 04:14 Absolute Nucleated RBC 0.1 /100WBC 12/30/19 04:14 PT 14.2 SECONDS (11.8-14.3) 12/28/19 09:30 INR Target Range - 12/28/19 09:30 INR 1.13 (0.8-1.3) 12/28/19 09:30 APTT 27.5 SECONDS (22.9-36.5) 12/28/19 09:30 PTT Comment - 12/28/19 09:30 D-Dimer 1050 ng/mL (0-400) H* 12/28/19 08:55 Sodium 141 mmol/L (136-145) 12/30/19 04:14 Corrected Sodium 143 mmol/L (136-145) 12/30/19 04:14 Potassium 3.8 mmol/L (3.5-5.1) 12/30/19 04:14 Chloride 103 mmol/L (98-107) 12/30/19 04:14 Carbon Dioxide 29.4 mmol/L (21-32) 12/30/19 04:14 BUN 26 mg/dL (7-18) H 12/30/19 04:14 Creatinine 1.43 mg/dL (0.70-1.30) H 12/30/19 04:14 Est GFR (MDRD) Af Amer > 60 (>60) 12/30/19 04:14 Est GFR (MDRD) Non-Af 51 (>60) L 12/30/19 04:14 Glucose 181 mg/dL (65-99) H 12/30/19 04:14 POC Glucose (mg/dL) 242 mg/dL (65-99) H 12/28/19 16:46 Calcium 8.3 mg/dL (8.5-10.1) L 12/30/19 04:14 Corrected Calcium 9.2 mg/dL (8.5-10.1) 12/30/19 04:14 Magnesium 1.9 mg/dL (1.7-2.9) 12/30/19 04:14 Total Bilirubin 0.90 mg/dL (0.2-1.0) 12/30/19 04:14 AST 10 Units/L (15-37) L 12/30/19 04:14 ALT 10 Units/L (12-78) L 12/30/19 04:14 Alkaline Phosphatase 54 Units/L (46-116) 12/30/19 04:14 Creatine Kinase 60 Units/L (39-308) 12/28/19 08:55 CK-MB (CK-2) 1.4 ng/mL (0-4.0) 12/28/19 08:55 CK/CKMB % Calc 2.3 % (<4) 12/28/19 08:55 Troponin I < 0.02 ng/mL (0-1.5) 12/28/19 08:55 Total Protein 5.9 g/dL (6.4-8.2) L 12/30/19 04:14 Albumin 2.9 g/dL (3.4-5.0) L 12/30/19 04:14 Globulin 3.0 g/dL (2.5-4.5) 12/30/19 04:14 Albumin/Globulin Ratio 1.0 Ratio (1.1-2.1) L 12/30/19 04:14 Triglycerides 112 mg/dL (0-150) 12/29/19 04:12 Cholesterol 137 mg/dL (0-200) 12/29/19 04:12 LDL Cholesterol, Calc 74 mg/dL (0-100) 12/29/19 04:12 HDL Cholesterol 41 mg/dL (40-60) 12/29/19 04:12 Cholesterol/HDL Ratio 3.3 (0.0-5.0) 12/29/19 04:12 Plan (1) Left hemiparesis: Status: Acute Plan: Will get MRI to evaluate. PT evaluation. (2) Deep vein thrombosis, lower left extremity: Status: Acute Qualifiers: Affected thrombotic vein of extremity: femoral Chronicity: chronic Qualified Code(s): I82.512 - Chronic embolism and thrombosis of left femoral vein Plan: Eliquis (3) Bilateral pulmonary embolism: Status: Acute Plan: Eliquis (4) Sinus bradycardia: Status: Acute (5) Accelerated hypertension: Status: Acute Plan: Restart home BP medications (6) Acute kidney injury: Status: Acute Plan: Continue to trend (7) Hypokalemia: Status: Acute Plan: Replete per protocol
[2019-12-30] MEDS ORDERED: ZESTRIL TAB 5 MG PO SCH (09:00)
[2019-12-30] MEDS: ELIQUIS PO SCH ×2 (09:09→21:40)
[2019-12-30] MEDS: NORVASC TAB 10 MG PO SCH (09:09)
[2019-12-30] MEDS: K-DUR TAB 20 MEQ PO SCH ×2 (09:10→21:40)
[2019-12-30] MEDS: ROCEPHIN VIAL 1 GRAM 1 G in NS 100 ML IV + SPIKE MINIBAG* 100 ML IV SCH (09:10)
[2019-12-30] MEDS: ACTOS PO SCH (09:10)
[2019-12-30] MEDS: GLUCOPHAGE XR 24-HR PO SCH ×2 (09:10→21:40)
--- NOTE | 2019-12-30 13:04 | MRI ---
HISTORYLT SIDE WEAKNESS, CVASTUDYMRI BRAIN W/O IV CONCOMPARISONCT from same dayTECHNIQUEMultiplanar multi-sequence MRI of the brain was obtained without administration of IV contrast.FINDINGSThe cerebellar tonsils are normally positioned.The cerebral ventricles are normal in size.Foci of restricted diffusion and increased T2 signal are seen in the right occipital, temporal and parietal lobes. Similar foci are seen in the periphery of the right frontoparietal CVA suggesting extension of the CVA. No significant mass effect is seen. Associated gliosis is seen in the right frontoparietal white matter. Mild chronic small vessel ischemic changes are seen in the left periventricular white matter.Mild hemosiderin deposition is seen in the periphery of the old right frontoparietal CVA. No evidence of recent hemorrhage is seen.Paranasal sinuses appear clear of fluid. Fluid is seen in the left mastoid air cells with minimal fluid in the right mastoid air cells.Normal flow voids are seen in the visualized portions of the vessels of the [place] and dural venous sinuses.IMPRESSIONOld right frontoparietal CVA with encephalomalacia. There is likely recent extension of this CVA with areas of restricted diffusion in the periphery of the CVA. Furthermore, other scattered small foci of rays CVA are seen in the right occipital, temporal and parietal lobes.Electronically signed by: Jann Macias (Dec 30, 2019 13:02:50)
[2019-12-30] MEDS: PRAVACHOL PO SCH (21:40)
[2019-12-30] MEDS: ULTRAM PO PRN (21:58)
[2019-12-31 05:03] LABS: BASOPHILS % (AUTO) 0.6 % (0.2-1.0); EOSINOPHILS # (AUTO) 0.1 x10^3/uL (0.0-0.2); EOSINOPHILS % (AUTO) 2.5 % (0.9-2.9); HEMATOCRIT 42.4 % (42.0-54.0); HEMOGLOBIN 14.2 g/dL (13.5-18.0); LYMPHOCYTES # (AUTO) 1.1 X10^3/uL (1.3-2.9); LYMPHOCYTES % (AUTO) 18.6 % (21.0-51.0); MEAN CORPUSCULAR HEMOGLOBIN 31.3 pg (27.0-34.0); MEAN CORPUSCULAR HGB CONC 33.6 g/dL (33.0-35.0); MEAN CORPUSCULAR VOLUME 93.2 fL (80.0-100.0); MEAN PLATELET VOLUME 9.8 fL (7.4-11.0); MONOCYTES # (AUTO) 0.6 x10^3/uL (0.3-0.8); MONOCYTES % (AUTO) 9.5 % (0.0-13.0); NEUTROPHILS # (AUTO) 4.1 x10^3/uL (2.2-4.8); NEUTROPHILS % (AUTO) 68.8 % (42.0-75.0); PLATELET COUNT 142 X10^3/uL (150.0-450.0); RED BLOOD COUNT 4.55 X10^6/uL (4.7-6.0); RED CELL DISTRIBUTION WIDTH 13.9 % (11.6-16.5); WHITE BLOOD COUNT 5.9 X10^3/uL (3.6-10.0)
[2019-12-31 05:09] LABS: BLOOD UREA NITROGEN 29 mg/dL (7-18); CALCIUM 8.5 mg/dL (8.5-10.1); CARBON DIOXIDE 29.7 mmol/L (21-32); CHLORIDE 103 mmol/L (98-107); COR NA(FOR HYPERGLY) 141 mmol/L (136-145); CREATININE 1.22 mg/dL (0.70-1.30); SODIUM 139 mmol/L (136-145); eGFR NON BLACK RACES > 60 (>60)
[2019-12-31] MEDS ORDERED: CATAPRES TAB 0.1 MG PO PRN (08:11)
[2019-12-31] MEDS: GLUCOPHAGE XR 24-HR PO SCH ×2 (08:25→20:13)
[2019-12-31] MEDS: ACTOS PO SCH (08:25)
[2019-12-31] MEDS: ZESTRIL TAB 5 MG PO SCH ×2 (08:25→08:26)
[2019-12-31] MEDS: K-DUR TAB 20 MEQ PO SCH ×2 (08:25→20:13)
[2019-12-31] MEDS: NORVASC TAB 10 MG PO SCH (08:26)
[2019-12-31] MEDS: ELIQUIS PO SCH ×2 (08:26→20:13)
--- NOTE | 2019-12-31 10:03 | PCM.PROG ---
Progress Note Progress Note for Day of Date of Exam: 12/31/19 Subjective Subjective: Pt is a 79 yo m pmhx HTN, DMT2, CVA, admitted for pulmonary embolism secondary to deep vein thrombosis (is on Eliquis but it is believed non- compliance) and new CVA. 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 There is likely recent extension of this CVA with areas of restricted diffusion in the periphery of the CVA. Furthermore, other scattered small foci of rays CVA are seen in the right occipital, temporal and parietal lobes. He has decreased LUE and LLE strength, but has improved some today on exam. He is on Eliquis 10mg BID x 7days and then 5mg BID. Labs/Imaging: Venous duplex:Persistent thrombus from the common femoral through the mid superficial femoral vein. Resolution of the thrombus in the caudal superficial femoral vein and popliteal vein. CT chest:scattered b/l subsegmental pulmonary thromboemboli. Wbc 5.9, Hgb 14.2, Plt 142, Na 139, K 4.2, Cr 1.22. Will get TTE today. continue PT. BP elevated, will increase Lisinopril. Continue to monitor and follow up labs in the morning. Past Medical Family Social History Past Med/Fam/Surg Hx: No changes since H&P Allergies: Allergies No Known Drug Allergies Allergy (Verified 01/10/19 09:15) Review of Systems ROS: No change since H&P Vital Signs and I&O's Vital Signs: Temperature 97.4 F Pulse Rate [Right Brachial] 52 Pulse Rate [Right Radial] 61 Pulse Rate 52 Respiratory Rate 18 Blood Pressure [Right Arm] 198/88 Blood Pressure 194/89 O2 Sat by Pulse Oximetry 98 Intake and Output: Intake & Output 12/28/19 12/29/19 12/30/19 12/31/19 23:59 23:59 23:59 23:59 Intake Total 1550 / 1550 720 / 720 120 / 120 Output Total 400 / 400 250 / 250 Balance -390 / -390 1550 / 1550 470 / 470 120 / 120 Physical Exam Oriented: Normal Eyes: Normal Ear: Normal Nose: Normal Respiratory: Normal Cardiovascular: Bradycardia : Normal Auscultation: Bowel Sounds: Normal Tenderness: Normal Skin: Normal Musculoskeletal: Motor Deficit (Decrease strength LUE and LLE ) Mood Description: Calm Speech Pattern: Appropriate and Unclear Laboratory and Diagnostics Result Diagrams: 12/31/19 04:36 12/31/19 04:36 Labs: Laboratory WBC 5.9 X10^3/uL (3.6-10.0) 12/31/19 04:36 RBC 4.55 X10^6/uL (4.7-6.0) L 12/31/19 04:36 Hgb 14.2 g/dL (13.5-18.0) 12/31/19 04:36 Hct 42.4 % (42.0-54.0) 12/31/19 04:36 MCV 93.2 fL (80.0-100.0) 12/31/19 04:36 MCH 31.3 pg (27.0-34.0) 12/31/19 04:36 MCHC 33.6 g/dL (33.0-35.0) 12/31/19 04:36 RDW 13.9 % (11.6-16.5) 12/31/19 04:36 Plt Count 142 X10^3/uL (150.0-450.0) L 12/31/19 04:36 MPV 9.8 fL (7.4-11.0) 12/31/19 04:36 Neut % (Auto) 68.8 % (42.0-75.0) 12/31/19 04:36 Lymph % (Auto) 18.6 % (21.0-51.0) L 12/31/19 04:36 [place] % (Auto) 9.5 % (0.0-13.0) 12/31/19 04:36 Eos % (Auto) 2.5 % (0.9-2.9) 12/31/19 04:36 Baso % (Auto) 0.6 % (0.2-1.0) 12/31/19 04:36 Neut # (Auto) 4.1 x10^3/uL (2.2-4.8) 12/31/19 04:36 Lymph # (Auto) 1.1 X10^3/uL (1.3-2.9) L 12/31/19 04:36 [place] # (Auto) 0.6 x10^3/uL (0.3-0.8) 12/31/19 04:36 Eos # (Auto) 0.1 x10^3/uL (0.0-0.2) 12/31/19 04:36 Baso # (Auto) 0.0 X10^3/uL (0.0-0.1) 12/31/19 04:36 Absolute Nucleated RBC 0.1 /100WBC 12/31/19 04:36 PT 14.2 SECONDS (11.8-14.3) 12/28/19 09:30 INR Target Range - 12/28/19 09:30 INR 1.13 (0.8-1.3) 12/28/19 09:30 APTT 27.5 SECONDS (22.9-36.5) 12/28/19 09:30 PTT Comment - 12/28/19 09:30 D-Dimer 1050 ng/mL (0-400) H* 12/28/19 08:55 Sodium 139 mmol/L (136-145) 12/31/19 04:36 Corrected Sodium 141 mmol/L (136-145) 12/31/19 04:36 Potassium 4.2 mmol/L (3.5-5.1) 12/31/19 04:36 Chloride 103 mmol/L (98-107) 12/31/19 04:36 Carbon Dioxide 29.7 mmol/L (21-32) 12/31/19 04:36 BUN 29 mg/dL (7-18) H 12/31/19 04:36 Creatinine 1.22 mg/dL (0.70-1.30) 12/31/19 04:36 Est GFR (MDRD) Af Amer > 60 (>60) 12/31/19 04:36 Est GFR (MDRD) Non-Af > 60 (>60) 12/31/19 04:36 Glucose 171 mg/dL (65-99) H 12/31/19 04:36 POC Glucose (mg/dL) 242 mg/dL (65-99) H 12/28/19 16:46 Calcium 8.5 mg/dL (8.5-10.1) 12/31/19 04:36 Corrected Calcium 9.2 mg/dL (8.5-10.1) 12/30/19 04:14 Magnesium 1.9 mg/dL (1.7-2.9) 12/30/19 04:14 Total Bilirubin 0.90 mg/dL (0.2-1.0) 12/30/19 04:14 AST 10 Units/L (15-37) L 12/30/19 04:14 ALT 10 Units/L (12-78) L 12/30/19 04:14 Alkaline Phosphatase 54 Units/L (46-116) 12/30/19 04:14 Creatine Kinase 60 Units/L (39-308) 12/28/19 08:55 CK-MB (CK-2) 1.4 ng/mL (0-4.0) 12/28/19 08:55 CK/CKMB % Calc 2.3 % (<4) 12/28/19 08:55 Troponin I < 0.02 ng/mL (0-1.5) 12/28/19 08:55 Total Protein 5.9 g/dL (6.4-8.2) L 12/30/19 04:14 Albumin 2.9 g/dL (3.4-5.0) L 12/30/19 04:14 Globulin 3.0 g/dL (2.5-4.5) 12/30/19 04:14 Albumin/Globulin Ratio 1.0 Ratio (1.1-2.1) L 12/30/19 04:14 Triglycerides 112 mg/dL (0-150) 12/29/19 04:12 Cholesterol 137 mg/dL (0-200) 12/29/19 04:12 LDL Cholesterol, Calc 74 mg/dL (0-100) 12/29/19 04:12 HDL Cholesterol 41 mg/dL (40-60) 12/29/19 04:12 Cholesterol/HDL Ratio 3.3 (0.0-5.0) 12/29/19 04:12 Plan (1) CVA (cerebral vascular accident): Status: Chronic Qualifiers: CVA mechanism: unspecified Qualified Code(s): I63.9 - Cerebral infarction, unspecified Plan: PT/OT/ST (2) Left hemiparesis: Status: Acute (3) Deep vein thrombosis, lower left extremity: Status: Acute Qualifiers: Affected thrombotic vein of extremity: femoral Chronicity: chronic Qualified Code(s): I82.512 - Chronic embolism and thrombosis of left femoral vein Plan: Eliquis (4) Bilateral pulmonary embolism: Status: Acute Plan: Eliquis (5) Sinus bradycardia: Status: Acute (6) Accelerated hypertension: Status: Acute Plan: BP medications, increase lisinopril (7) Acute kidney injury: Status: Acute Plan: resolved (8) Hypokalemia: Status: Acute Plan: Replete per protocol
[2019-12-31] MEDS ORDERED: MILK OF MAGNESIA PO PRN (10:08)
[2019-12-31] MEDS: HumuLIN R SC PRN (12:20)
[2019-12-31] MEDS: COLACE CAP 100 MG PO SCH (20:13)
[2019-12-31] MEDS: PRAVACHOL PO SCH (20:13)
[2020-01-01] MEDS: ULTRAM PO PRN (04:10)
[2020-01-01 05:11] LABS: BASOPHILS % (AUTO) 0.4 % (0.2-1.0); EOSINOPHILS # (AUTO) 0.2 x10^3/uL (0.0-0.2); EOSINOPHILS % (AUTO) 2.8 % (0.9-2.9); HEMATOCRIT 43.2 % (42.0-54.0); HEMOGLOBIN 14.5 g/dL (13.5-18.0); LYMPHOCYTES # (AUTO) 0.8 X10^3/uL (1.3-2.9); LYMPHOCYTES % (AUTO) 11.3 % (21.0-51.0); MEAN CORPUSCULAR HEMOGLOBIN 31.3 pg (27.0-34.0); MEAN CORPUSCULAR HGB CONC 33.7 g/dL (33.0-35.0); MEAN PLATELET VOLUME 9.9 fL (7.4-11.0); MONOCYTES # (AUTO) 0.5 x10^3/uL (0.3-0.8); MONOCYTES % (AUTO) 7.5 % (0.0-13.0); NEUTROPHILS # (AUTO) 5.7 x10^3/uL (2.2-4.8); PLATELET COUNT 146 X10^3/uL (150.0-450.0); RED BLOOD COUNT 4.64 X10^6/uL (4.7-6.0); RED CELL DISTRIBUTION WIDTH 13.8 % (11.6-16.5); WHITE BLOOD COUNT 7.2 X10^3/uL (3.6-10.0)
[2020-01-01 05:13] LABS: BLOOD UREA NITROGEN 34 mg/dL (7-18); CALCIUM 8.7 mg/dL (8.5-10.1); CARBON DIOXIDE 29.1 mmol/L (21-32); CHLORIDE 103 mmol/L (98-107); COR NA(FOR HYPERGLY) 141 mmol/L (136-145); CREATININE 1.14 mg/dL (0.70-1.30); SODIUM 139 mmol/L (136-145); eGFR NON BLACK RACES > 60 (>60)
[2020-01-01] MEDS: HumuLIN R SC PRN ×2 (05:47→20:21)
--- NOTE | 2020-01-01 08:09 | PCM.PROG ---
Progress Note Progress Note for Day of Date of Exam: 01/01/20 Subjective Subjective: Pt is a 79 yo m pmhx HTN, DMT2, CVA, admitted for pulmonary embolism secondary to deep vein thrombosis (was on Eliquis, but non-compliant), and new CVA shown on MRI. He is feeling better today, has decreased LUE and LLE strength. He is on Eliquis 10mg BID x 7days and then 5mg BID. Labs/Imaging: Venous duplex:Persistent thrombus from the common femoral through the mid superficial femoral vein. Resolution of the thrombus in the caudal superficial femoral vein and popliteal vein. CT chest:scattered b/l subsegmental pulmonary thromboemboli. TTE yesterday showed no vegetations. Wbc 7.2, Hgb 14.5, Plt 146, Na 139, K 4.7, Cr 1.14. Continue PT. He is awaiting placement to SNF, need COVID-19 result that is pending for facility to accept. Continue to monitor and follow up labs in the morning. Past Medical Family Social History Past Med/Fam/Surg Hx: No changes since H&P Allergies: Allergies No Known Drug Allergies Allergy (Verified 01/10/19 09:15) Review of Systems ROS: No change since H&P Vital Signs and I&O's Vital Signs: Temperature 97.9 F Pulse Rate [Right Brachial] 58 Pulse Rate [Right Radial] 61 Pulse Rate 52 Respiratory Rate 20 Blood Pressure [Right Arm] 183/83 Blood Pressure 194/89 O2 Sat by Pulse Oximetry 97 Intake and Output: Intake & Output 12/29/19 12/30/19 12/31/19 01/01/20 23:59 23:59 23:59 23:59 Intake Total 1550 / 1550 720 / 720 480 / 480 0 / 0 Output Total 250 / 250 625 / 625 125 / 125 Balance 1550 / 1550 470 / 470 -145 / -145 -125 / -125 Physical Exam Oriented: Normal Eyes: Normal Ear: Normal Nose: Normal Respiratory: Normal Cardiovascular: Bradycardia : Normal Auscultation: Bowel Sounds: Normal Tenderness: Normal Skin: Normal Musculoskeletal: Motor Deficit (Decrease strength LUE and LLE ) Mood Description: Calm Speech Pattern: Appropriate and Unclear Laboratory and Diagnostics Result Diagrams: 01/01/20 04:29 01/01/20 04:29 Labs: Laboratory WBC 7.2 X10^3/uL (3.6-10.0) 01/01/20 04: RBC 4.64 X10^6/uL (4.7-6.0) L 01/01/20 04: Hgb 14.5 g/dL (13.5-18.0) 01/01/20 04: Hct 43.2 % (42.0-54.0) 01/01/20 04: MCV 93.0 fL (80.0-100.0) 01/01/20 04: MCH 31.3 pg (27.0-34.0) 01/01/20 04: MCHC 33.7 g/dL (33.0-35.0) 01/01/20 04: RDW 13.8 % (11.6-16.5) 01/01/20 04: Plt Count 146 X10^3/uL (150.0-450.0) L 01/01/20 04: MPV 9.9 fL (7.4-11.0) 01/01/20 04: Neut % (Auto) 78.0 % (42.0-75.0) H 01/01/20 04: Lymph % (Auto) 11.3 % (21.0-51.0) L 01/01/20 04: [place] % (Auto) 7.5 % (0.0-13.0) 01/01/20 04: Eos % (Auto) 2.8 % (0.9-2.9) 01/01/20 04: Baso % (Auto) 0.4 % (0.2-1.0) 01/01/20 04:29 Neut # (Auto) 5.7 x10^3/uL (2.2-4.8) H 01/01/20 04: Lymph # (Auto) 0.8 X10^3/uL (1.3-2.9) L 01/01/20 04:29 [place] # (Auto) 0.5 x10^3/uL (0.3-0.8) 01/01/20 04: Eos # (Auto) 0.2 x10^3/uL (0.0-0.2) 01/01/20 04:29 Baso # (Auto) 0.0 X10^3/uL (0.0-0.1) 01/01/20 04:29 Absolute Nucleated RBC 0.0 /100WBC 01/01/20 04:29 PT 14.2 SECONDS (11.8-14.3) 12/28/19 09:30 INR Target Range - 12/28/19 09:30 INR 1.13 (0.8-1.3) 12/28/19 09:30 APTT 27.5 SECONDS (22.9-36.5) 12/28/19 09:30 PTT Comment - 12/28/19 09:30 D-Dimer 1050 ng/mL (0-400) H* 12/28/19 08:55 Sodium 139 mmol/L (136-145) 01/01/20 04:29 Corrected Sodium 141 mmol/L (136-145) 01/01/20 04:29 Potassium 4.7 mmol/L (3.5-5.1) 01/01/20 04:29 Chloride 103 mmol/L (98-107) 01/01/20 04:29 Carbon Dioxide 29.1 mmol/L (21-32) 01/01/20 04:29 BUN 34 mg/dL (7-18) H 01/01/20 04:29 Creatinine 1.14 mg/dL (0.70-1.30) 01/01/20 04:29 Est GFR (MDRD) Af Amer > 60 (>60) 01/01/20 04:29 Est GFR (MDRD) Non-Af > 60 (>60) 01/01/20 04:29 Glucose 188 mg/dL (65-99) H 01/01/20 04:29 POC Glucose (mg/dL) 242 mg/dL (65-99) H 12/28/19 16:46 Calcium 8.7 mg/dL (8.5-10.1) 01/01/20 04:29 Corrected Calcium 9.2 mg/dL (8.5-10.1) 12/30/19 04:14 Magnesium 1.9 mg/dL (1.7-2.9) 12/30/19 04:14 Total Bilirubin 0.90 mg/dL (0.2-1.0) 12/30/19 04:14 AST 10 Units/L (15-37) L 12/30/19 04:14 ALT 10 Units/L (12-78) L 12/30/19 04:14 Alkaline Phosphatase 54 Units/L (46-116) 12/30/19 04:14 Creatine Kinase 60 Units/L (39-308) 12/28/19 08:55 CK-MB (CK-2) 1.4 ng/mL (0-4.0) 12/28/19 08:55 CK/CKMB % Calc 2.3 % (<4) 12/28/19 08:55 Troponin I < 0.02 ng/mL (0-1.5) 12/28/19 08:55 Total Protein 5.9 g/dL (6.4-8.2) L 12/30/19 04:14 Albumin 2.9 g/dL (3.4-5.0) L 12/30/19 04:14 Globulin 3.0 g/dL (2.5-4.5) 12/30/19 04:14 Albumin/Globulin Ratio 1.0 Ratio (1.1-2.1) L 12/30/19 04:14 Triglycerides 112 mg/dL (0-150) 12/29/19 04:12 Cholesterol 137 mg/dL (0-200) 12/29/19 04:12 LDL Cholesterol, Calc 74 mg/dL (0-100) 12/29/19 04:12 HDL Cholesterol 41 mg/dL (40-60) 12/29/19 04:12 Cholesterol/HDL Ratio 3.3 (0.0-5.0) 12/29/19 04:12 Plan (1) CVA (cerebral vascular accident): Status: Chronic Qualifiers: CVA mechanism: unspecified Qualified Code(s): I63.9 - Cerebral infarction, unspecified Plan: PT/OT/ST (2) Left hemiparesis: Status: Acute Plan: PT (3) Deep vein thrombosis, lower left extremity: Status: Acute Qualifiers: Affected thrombotic vein of extremity: femoral Chronicity: chronic Qualified Code(s): I82.512 - Chronic embolism and thrombosis of left femoral vein Plan: Eliquis (4) Bilateral pulmonary embolism: Status: Acute Plan: Eliquis (5) Sinus bradycardia: Status: Acute (6) Accelerated hypertension: Status: Acute Plan: BP medications, increase lisinopril (7) Acute kidney injury: Status: Acute Plan: resolved (8) Hypokalemia: Status: Acute Plan: Replete per protocol
[2020-01-01] MEDS: NORVASC TAB 10 MG PO SCH (09:35)
[2020-01-01] MEDS: ZESTRIL TAB 5 MG PO SCH (09:35)
[2020-01-01] MEDS: ELIQUIS PO SCH ×2 (09:35→20:20)
[2020-01-01] MEDS: K-DUR TAB 20 MEQ PO SCH ×2 (09:36→20:20)
[2020-01-01] MEDS: ACTOS PO SCH (09:36)
[2020-01-01] MEDS: GLUCOPHAGE XR 24-HR PO SCH ×2 (09:36→20:21)
[2020-01-01] MEDS: COLACE CAP 100 MG PO SCH (20:19)
[2020-01-01] MEDS ORDERED: PRAVACHOL PO SCH (21:00)
[2020-01-02] MEDS: HumuLIN R SC PRN (05:34)
[2020-01-02 06:35] LABS: BASOPHILS % (AUTO) 0.4 % (0.2-1.0); EOSINOPHILS # (AUTO) 0.2 x10^3/uL (0.0-0.2); EOSINOPHILS % (AUTO) 2.6 % (0.9-2.9); HEMATOCRIT 43.7 % (42.0-54.0); HEMOGLOBIN 14.7 g/dL (13.5-18.0); LYMPHOCYTES # (AUTO) 0.8 X10^3/uL (1.3-2.9); LYMPHOCYTES % (AUTO) 12.6 % (21.0-51.0); MEAN CORPUSCULAR HEMOGLOBIN 31.2 pg (27.0-34.0); MEAN CORPUSCULAR HGB CONC 33.6 g/dL (33.0-35.0); MEAN CORPUSCULAR VOLUME 92.7 fL (80.0-100.0); MEAN PLATELET VOLUME 9.7 fL (7.4-11.0); MONOCYTES # (AUTO) 0.6 x10^3/uL (0.3-0.8); MONOCYTES % (AUTO) 8.7 % (0.0-13.0); NEUTROPHILS # (AUTO) 5.1 x10^3/uL (2.2-4.8); NEUTROPHILS % (AUTO) 75.7 % (42.0-75.0); PLATELET COUNT 148 X10^3/uL (150.0-450.0); RED BLOOD COUNT 4.72 X10^6/uL (4.7-6.0); RED CELL DISTRIBUTION WIDTH 14.1 % (11.6-16.5); WHITE BLOOD COUNT 6.7 X10^3/uL (3.6-10.0)
[2020-01-02 06:47] LABS: BLOOD UREA NITROGEN 38 mg/dL (7-18); CARBON DIOXIDE 28.6 mmol/L (21-32); CHLORIDE 102 mmol/L (98-107); SODIUM 137 mmol/L (136-145)
[2020-01-02 06:48] LABS: COR NA(FOR HYPERGLY) 140 mmol/L (136-145); eGFR NON BLACK RACES 56 (>60)
--- NOTE | 2020-01-02 08:11 | W.DIS.FURT ---
Summary of Discharge Discharge Summary of Date Date of Exam: 01/02/20 Admission Date Date of Admission: 12/28/19 Admission Diagnosis Patient Problems (Updated 12/30/19 @ 10:22 by Ab Dinh) Hypokalemia (Acute) E87.6 Acute kidney injury (Acute) N17.9 Left hemiparesis (Acute) G81.94 Bilateral pulmonary embolism (Acute) I26.99 Accelerated hypertension (Acute) I10 Hypomagnesemia (Acute) E83.42 Abrasion of left arm (Acute) S40.812A Deep vein thrombosis, lower left extremity (Acute) I82.402 Sinus bradycardia (Acute) R00.1 CVA (cerebral vascular accident) (Chronic) I63.9 Diabetes (Acute) E11.9 Hospital Course: Pt is a 79 yo m pmhx HTN, DMT2, CVA, admitted after having decreased LUE and LLE strength, and found to have pulmonary embolism secondary to deep vein thrombosis (was on Eliquis, but non-compliant), and new CVA shown on MRI. He has had some return of LUE and LLE strength during hospital course working with PT. He is on Eliquis and his medications have been optimized. Labs/Imaging: Venous duplex:Persistent thrombus from the common femoral through the mid superficial femoral vein. Resolution of the thrombus in the caudal superficial femoral vein and popliteal vein. CT chest:scattered b/l subsegmental pulmonary thromboemboli. TTE showed no vegetations. 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 There is likely recent extension of this CVA with areas of restricted diffusion in the periphery of the CVA. Furthermore, other scattered small foci of rays CVA are seen in the right occipital, temporal and parietal lobes. -Pt will be transferred to SNF-[facility]. Continue medications, PT, and will be evaluated by on Monday. Referral placed for pt to be seen by Vascular outpatient d/t DVT producing multiple pulmonary emboli to be evaluated if candidate for IVC placement. -Pt was stable on discharge. Vital Signs: Vital Signs (72 hours) 12/30/19 12:00 12/30/19 16:00 12/30/19 20:00 Temperature 97.8 F 97.9 F 98.6 F Pulse Rate Pulse Rate [Right Brachial] 71 58 L 61 Respiratory Rate 20 20 20 Blood Pressure [Right Arm] 181/79 158/70 166/81 O2 Sat by Pulse Oximetry 98 99 98 12/30/19 20:24 12/30/19 21:58 12/30/19 22:58 Temperature Pulse Rate 61 Pulse Rate [Right Brachial] Respiratory Rate 18 18 Blood Pressure [Right Arm] O2 Sat by Pulse Oximetry 97 12/30/19 23:45 12/31/19 04:00 12/31/19 07:36 Temperature 97.5 F L 97.7 F 97.4 F L Pulse Rate Pulse Rate [Right Brachial] 59 L 59 L 52 L Respiratory Rate 17 17 18 Blood Pressure [Right Arm] 155/85 177/94 198/88 O2 Sat by Pulse Oximetry 99 100 100 12/31/19 08:09 12/31/19 09:30 12/31/19 12:00 Temperature 97.4 F L 98.0 F Pulse Rate 52 L Pulse Rate [Right Brachial] 52 L 60 Respiratory Rate 18 18 Blood Pressure [Right Arm] 198/88 158/77 O2 Sat by Pulse Oximetry 100 98 97 12/31/19 16:00 12/31/19 20:00 01/01/20 00:00 Temperature 97.8 F 97.9 F 97.8 F Pulse Rate Pulse Rate [Right Brachial] 61 58 L 60 Respiratory Rate 20 20 19 Blood Pressure [Right Arm] 161/73 180/76 165/84 O2 Sat by Pulse Oximetry 100 97 97 01/01/20 04:00 01/01/20 04:10 01/01/20 05:10 Temperature 97.9 F Pulse Rate Pulse Rate [Right Brachial] 58 L Respiratory Rate 20 20 20 Blood Pressure [Right Arm] 183/83 O2 Sat by Pulse Oximetry 97 01/01/20 08:00 01/01/20 12:00 01/01/20 15:52 Temperature 97.8 F 98.2 F 98.1 F Pulse Rate Pulse Rate [Right Brachial] 57 L 58 L 59 L Respiratory Rate 18 18 18 Blood Pressure [Right Arm] 172/84 180/78 152/75 O2 Sat by Pulse Oximetry 96 99 99 01/01/20 20:00 01/01/20 23:15 01/02/20 03:37 Temperature 97.7 F 97.9 F 97.7 F Pulse Rate Pulse Rate [Right Brachial] 60 59 L 63 Respiratory Rate 18 18 18 Blood Pressure [Right Arm] 134/70 149/84 179/84 O2 Sat by Pulse Oximetry 99 99 96 Labs: Laboratory Last Values WBC 6.7 X10^3/uL (3.6-10.0) 01/02/20 05:40 RBC 4.72 X10^6/uL (4.7-6.0) 01/02/20 05:40 Hgb 14.7 g/dL (13.5-18.0) 01/02/20 05:40 Hct 43.7 % (42.0-54.0) 01/02/20 05:40 MCV 92.7 fL (80.0-100.0) 01/02/20 05:40 MCH 31.2 pg (27.0-34.0) 01/02/20 05:40 MCHC 33.6 g/dL (33.0-35.0) 01/02/20 05:40 RDW 14.1 % (11.6-16.5) 01/02/20 05:40 Plt Count 148 X10^3/uL (150.0-450.0) L 01/02/20 05:40 MPV 9.7 fL (7.4-11.0) 01/02/20 05:40 Neut % (Auto) 75.7 % (42.0-75.0) H 01/02/20 05:40 Lymph % (Auto) 12.6 % (21.0-51.0) L 01/02/20 05:40 [place] % (Auto) 8.7 % (0.0-13.0) 01/02/20 05:40 Eos % (Auto) 2.6 % (0.9-2.9) 01/02/20 05:40 Baso % (Auto) 0.4 % (0.2-1.0) 01/02/20 05:40 Neut # (Auto) 5.1 x10^3/uL (2.2-4.8) H 01/02/20 05:40 Lymph # (Auto) 0.8 X10^3/uL (1.3-2.9) L 01/02/20 05:40 [place] # (Auto) 0.6 x10^3/uL (0.3-0.8) 01/02/20 05:40 Eos # (Auto) 0.2 x10^3/uL (0.0-0.2) 01/02/20 05:40 Baso # (Auto) 0.0 X10^3/uL (0.0-0.1) 01/02/20 05:40 Absolute Nucleated RBC 0.1 /100WBC 01/02/20 05:40 PT 14.2 SECONDS (11.8-14.3) 12/28/19 09:30 INR Target Range - 12/28/19 09:30 INR 1.13 (0.8-1.3) 12/28/19 09:30 APTT 27.5 SECONDS (22.9-36.5) 12/28/19 09:30 PTT Comment - 12/28/19 09:30 D-Dimer 1050 ng/mL (0-400) H* 12/28/19 08:55 Sodium 137 mmol/L (136-145) 01/02/20 05:40 Corrected Sodium 140 mmol/L (136-145) 01/02/20 05:40 Potassium 5.0 mmol/L (3.5-5.1) 01/02/20 05:40 Chloride 102 mmol/L (98-107) 01/02/20 05:40 Carbon Dioxide 28.6 mmol/L (21-32) 01/02/20 05:40 BUN 38 mg/dL (7-18) H 01/02/20 05:40 Creatinine 1.30 mg/dL (0.70-1.30) 01/02/20 05:40 Est GFR (MDRD) Af Amer > 60 (>60) 01/02/20 05:40 Est GFR (MDRD) Non-Af 56 (>60) L 01/02/20 05:40 Glucose 229 mg/dL (65-99) H 01/02/20 05:40 POC Glucose (mg/dL) 219 mg/dL (65-99) H 01/02/20 05:16 Calcium 9.0 mg/dL (8.5-10.1) 01/02/20 05:40 Corrected Calcium 9.2 mg/dL (8.5-10.1) 12/30/19 04:14 Magnesium 1.9 mg/dL (1.7-2.9) 12/30/19 04:14 Total Bilirubin 0.90 mg/dL (0.2-1.0) 12/30/19 04:14 AST 10 Units/L (15-37) L 12/30/19 04:14 ALT 10 Units/L (12-78) L 12/30/19 04:14 Alkaline Phosphatase 54 Units/L (46-116) 12/30/19 04:14 Creatine Kinase 60 Units/L (39-308) 12/28/19 08:55 CK-MB (CK-2) 1.4 ng/mL (0-4.0) 12/28/19 08:55 CK/CKMB % Calc 2.3 % (<4) 12/28/19 08:55 Troponin I < 0.02 ng/mL (0-1.5) 12/28/19 08:55 Total Protein 5.9 g/dL (6.4-8.2) L 12/30/19 04:14 Albumin 2.9 g/dL (3.4-5.0) L 12/30/19 04:14 Globulin 3.0 g/dL (2.5-4.5) 12/30/19 04:14 Albumin/Globulin Ratio 1.0 Ratio (1.1-2.1) L 12/30/19 04:14 Triglycerides 112 mg/dL (0-150) 12/29/19 04:12 Cholesterol 137 mg/dL (0-200) 12/29/19 04:12 LDL Cholesterol, Calc 74 mg/dL (0-100) 12/29/19 04:12 HDL Cholesterol 41 mg/dL (40-60) 12/29/19 04:12 Cholesterol/HDL Ratio 3.3 (0.0-5.0) 12/29/19 04:12 Reason For Visit: LEFT HEMIPARESIS, BILATERAL PULMONARY EMBOLISM Discharge Date Discharge Date: 01/02/20 Discharge Diagnosis All Active Problems (Updated 12/30/19 @ 10:22 by Ab Dinh) Hypokalemia (Acute) Acute kidney injury (Acute) Left hemiparesis (Acute) Bilateral pulmonary embolism (Acute) Accelerated hypertension (Acute) Hypomagnesemia (Acute) Abrasion of left arm (Acute) Deep vein thrombosis, lower left extremity (Acute) Sinus bradycardia (Acute) Intractable pain (Acute) Candidal intertrigo (Acute) Leg pain, left (Acute) Edema leg (Acute) PVD (peripheral vascular disease) (Acute) BPH (benign prostatic hyperplasia) (Acute) Hyperlipidemia (Acute) CVA (cerebral vascular accident) (Chronic) Hypertension (Acute) Diabetes (Acute) Deep venous thrombosis of left femoral vein (Acute) Diverticulosis of colon (Acute) Gallstone (Acute) Plan of Treatment: Continue with present treatment and follow up plan. Pt is to keep follow up appointment as instructed and take medications as ordered. Discharge Medications Discharge Medications: No Known Drug Allergies Allergy (Verified 01/10/19 09:15) CONTINUE taking the following medications glipizide 20 mg PO BID 12/28/19 [History] New Prescriptions amlodipine 10 mg PO DAILY 30 Days #30 tab 01/02/20 [Rx] docusate sodium 100 mg PO HS 30 Days #30 cap 01/02/20 [Rx] hydrocodone-acetaminophen 1 tab PO Q8H PRN 30 Days #90 tab MDD 3 tab 01/02/20 [Rx] lisinopril 40 mg PO DAILY 30 Days #30 tab 01/02/20 [Rx] metformin 1,000 mg PO BID 30 Days #120 tab 01/02/20 [Rx] pioglitazone 45 mg PO DAILY 30 Days #30 tab 01/02/20 [Rx] pravastatin 40 mg PO HS 30 Days #30 tab 01/02/20 [Rx] Discharge Disposition Discharge Disposition: [facility] Discharge Condition: Stable
[2020-01-02] MEDS ORDERED: ZESTRIL TAB 5 MG PO SCH (09:00)
[2020-01-02] MEDS: GLUCOPHAGE XR 24-HR PO SCH (09:06)
[2020-01-02] MEDS: ELIQUIS PO SCH (09:06)
[2020-01-02] MEDS: ACTOS PO SCH (09:06)
[2020-01-02] MEDS: K-DUR TAB 20 MEQ PO SCH (09:07)
[2020-01-02] MEDS: NORVASC TAB 10 MG PO SCH (09:07)
[2020-01-02 12:55] VITALS: BP 170/90
== END 2020-01-02 16:00 | DRG 64 ==
LOC: ER 08:35 → MED/SURG 12:27
PROVIDERS: ADMIT Obstetrics & Gynecology Obstetrics; ATTEND Family Medicine
DX: R26.89 Other abnormalities of gait and mobility; Z91.81 History of falling; Z23 Encounter for immunization; S40.812A Abrasion of left upper arm, initial encounter; E83.42 Hypomagnesemia; I10 Essential (primary) hypertension; Z79.01 Long term (current) use of anticoagulants; Z72.0 Tobacco use; M79.605 Pain in left leg; I63.9 Cerebral infarction, unspecified; G81.94 Hemiplegia, unspecified affecting left nondominant side; I26.99 Other pulmonary embolism without acute cor pulmonale; R00.1 Bradycardia, unspecified; E11.65 Type 2 diabetes mellitus with hyperglycemia; B27.00 Gammaherpesviral mononucleosis without complication; Z11.59 Encounter for screening for other viral diseases; N17.9 Acute kidney failure, unspecified; I82.512 Chronic embolism and thrombosis of left femoral vein; E87.6 Hypokalemia

== ENCOUNTER 2020-01-19 03:24 | Observation (INO) ==
--- NOTE | 2020-01-19 04:00 | DR.GENAD ---
HPI - PCP Primary Care Physician: SAUL - Complaint/Symptoms Chief Complaint Doctors Comments: Neighbors called 911 for a wellness check on the patient because he lives by himself and had a stroke over a month ago with left sided weakness. Patient wanted EMS to help him get into his wheel chair but he was covered in urine and feces and they brought him to the emergency room. Patient states that the only thing that hurts is his "pride". States he is unable to get up or walk at home for the past three months. States he has been in bed and has not had anything to eat in two days. He denies chest pain, SOB, cold or cough. Patient states that and aide helps with his food. States he is unable to go to the bathroom; so he do not go to the bathroom. States people help him to the bathroom. States he smokes two cigars daily and drinks a little whiskey. He is a patient of Dr. Quispe. He states he went to rehab for a month after his stroke and now he has home health care to come and see him. Patient with brown material on left hand, legs and feet. Chief Complaint:: PATIENT INTO ED VIA EMS; PER EMS, NEIGHBORS CALLED A WELL- CHECK TO 911; PATIENT HAD HX OF CVA X 1 MONTH AGO WITH LEFT SIDED WEAKNESS NOTED. PATIENT LIVES AT HOME ALONE. EMS FOUND PATIENT IN FECES AND URINE AND UNABLE TO CARE FOR HIMSELF. - COVID-19 Coronavirus risk:travel/contact w/high risk person: No Has patient experienced Coronavirus symptoms: No - Nurses notes reviewed Nurses Notes Review: Yes - Source History Provided: Patient - Mode of Arrival Mode of Arrival: EMS - Timing Onset of Chief Complaint: 01/19/20 Came on: Gradually - Duration Duration: Constant How lon Duration: Days - Location Location: left hemiplegia - Severity Severity: Moderate - Modifying Factors Worsens:: nothing Improves:: nothing PMH - PMH Past Medical History: Yes Past Medical History: CVA Past Surgical History: No Surgical History: Other - Family History History of Family Medical Conditions: No - Social History Alcohol Use: None Do you use any recreational Drugs:: No Lives With: Alone Lives Where: Home - Travel Risk Coronavirus risk:travel/contact w/high risk person: No Has patient experienced Coronavirus symptoms: No - infectious screening In the last 2 months have you had wt loss of >10#?: NO Have you had fever, night sweats or hemotysis?: No Have you traveled outside the country in the last 6 months?: No Isolation: Standard ROS - Review of Systems Constitutional: No Symptoms Reported Eyes: No Symptoms Reported ENTM: No Symptoms Reported Respiratoy: No Symptoms Reported. negative: See HPI, Productive Cough, Non- Productive Cough, Moist Cough, Dry Cough, Hacking Cough, Barking Cough, Brassy Cough, Orthopnea, Short of Breath, Stridor, Wheezing, Hemoptysis, Other Cardiovascular: No Symptoms Reported. negative: See HPI, Chest Pain, Edema, Palpitations, Syncope, Cyanosis, Skin Mottling, Other Gastrointestinal/Abdominal: No Symptoms Reported. negative: See HPI, Abdominal Pain, Constipation, Diarrhea, Nausea, Vomiting, Food Intolerance, Other Genitourinary: No Symptoms Reported Neurological: No Symptoms Reported, Paresthesia (left), Weakness (left hemiplegia), Problems Walking (left arm and leg weakness) Musculoskeletal: No Symptoms Reported, Left, Leg (abrasion left lower leg) Integumentary: No Symptoms Reported, Lesions (left lower leg with superficial abrasions) Hematologic/Lymphatic: No Symptoms Reported Endocrine: No Symptoms Reported Psychiatric: No Symptoms Reported. negative: See HPI, Anxiety, Depression, Hallucinations, Excessive crying, Suicidal, Other PE - General Limitations: No Limitations General Appearance: Alert, In No Apparent Distress (left hemiplegia) - Head Head Exam: Normal Inspection, Atraumatic, Normocephalic - Eyes Eye exam: Normal Appearance, PERRL, EOMI. negative: Scleral Icterus, Conjunctival Injection, Nystagmus, Miosis, Mydrasis, Periorbital Swelling, Periorbital Tenderness, Other - ENT ENT Exam: Normal Exam, Normal Oropharynx, Normal External Ear Exam, Mucous Membranes Moist, TM's Normal Bilaterally External Ear Exam: Normal External Inspection TM/Canal Exam: Bilateral Normal Nose Exam: Normal Nose Exam Mouth Exam: Normal Inspection. negative: Drooling, Trismus, Lip Swelling, To ngue Elevation, Tongue Swelling, Laceration, Other Throat Exam: Normal Inspection - Neck Neck Exam: Normal Inspection, Full ROM, Trachea Midline - Chest Chest Inspection: Normal Inspection, Symmetric Chest Wall Rise - Respiratory Respiratory Exam: Normal Lung Sounds Bilat Respiratory Exam: Bilateral Clear to Auscultation - Cardiovascular Cardiovascular Exam: Regular Rate, Normal Rhythm, Normal Heart Sounds - Abdominal Exam Abdominal Exam: Normal Inspection, Normal Bowel Sounds, Soft. negative: Distention, Tenderness, Guarding, Rebound, Rigidity, Dimnished Bowel Sounds, Hyperactive Bowel Sounds, Hypoactive Bowel Sounds, Organomegaly, Trauma, Incis ion, Ascites, Mass, Bruit, Pulsatile Mass, Hernia, Other Abdominal Tenderness: negative: RUQ, RLQ, LUQ, LLQ, Epigastrium, Suprapubic, Diffuse, Mild, Moderate, Severe, Other - Extremities Extremities Exam: Normal Capillary Refill. negative: Normal Inspection (left lower leg with multiple abrasions), Full ROM (left leg weakness; unable to lift leg from bed), Tenderness, Edema, Calf Tenderness - Back Back Exam: Normal Inspection, Full ROM. negative: Tenderness, (R) CVA Tenderness, (L) CVA Tenderness, Muscle Spasm, Paraspinal Tenderness, Vertebral Tenderness, Rashes, (R) Sciatic Notch Tenderness, (L) Sciatic Notch Tendern, (R) Straight Leg Raise, (L) Straight Leg Raise, Other - Neurologic Neurological Exam: Alert, Oriented X3. negative: CN II-XII Intact (left hemiplegia), Normal Gait (gait not tested), Reflexes Normal - Psychiatric Psychiatric Exam: Normal Affect, Normal Mood. negative: Depressed, Agitated, Anxious, Flat Affect, Manic, Homicidal Ideation, Suicidal Ideation, Other - Skin Skin Exam: Warm, Dry, Intact (small abrasion left hand with dried blood), Normal Color - Vital Signs Vitals: Pulse Rate 66 Respiratory Rate 14 Blood Pressure [Right Arm] 170/90 Blood Pressure 182/81 O2 Sat by Pulse Oximetry 98 Course - Reevaluation 1st: Improved - Consultation Called: 06:36 Call Returned: 06:36 (Dr. Hernandez to admit) - Education/Counseling Education/Counseling: Patient, Family Educated On: Treatment, Diagnosis, Needs for Follow Up ROR - Labs Reviewed Laboratory Results Reviewed?: Yes Result Diagrams: 01/19/20 04:20 01/19/20 04:20 - Labs Reviewed Laboratory: WBC 7.8 X10^3/uL (3.6-10.0) 01/19/20 04:20 RBC 4.98 X10^6/uL (4.7-6.0) 01/19/20 04:20 Hgb 15.6 g/dL (13.5-18.0) 01/19/20 04:20 Hct 45.9 % (42.0-54.0) 01/19/20 04:20 MCV 92.3 fL (80.0-100.0) 01/19/20 04:20 MCH 31.4 pg (27.0-34.0) 01/19/20 04:20 MCHC 34.0 g/dL (33.0-35.0) 01/19/20 04:20 RDW 13.9 % (11.6-16.5) 01/19/20 04:20 Plt Count 167 X10^3/uL (150.0-450.0) 01/19/20 04:20 MPV 10.6 fL (7.4-11.0) 01/19/20 04:20 Neut % (Auto) 78.4 % (42.0-75.0) H 01/19/20 04:20 Lymph % (Auto) 13.4 % (21.0-51.0) L 01/19/20 04:20 [place] % (Auto) 6.2 % (0.0-13.0) 01/19/20 04:20 Eos % (Auto) 1.5 % (0.9-2.9) 01/19/20 04:20 Baso % (Auto) 0.5 % (0.2-1.0) 01/19/20 04:20 Neut # (Auto) 6.1 x10^3/uL (2.2-4.8) H 01/19/20 04:20 Lymph # (Auto) 1.0 X10^3/uL (1.3-2.9) L 01/19/20 04:20 [place] # (Auto) 0.5 x10^3/uL (0.3-0.8) 01/19/20 04:20 Eos # (Auto) 0.1 x10^3/uL (0.0-0.2) 01/19/20 04:20 Baso # (Auto) 0.0 X10^3/uL (0.0-0.1) 01/19/20 04:20 Absolute Nucleated RBC 0.1 /100WBC 01/19/20 04:20 PT 13.3 SECONDS (11.8-14.3) 01/19/20 04:20 INR Target Range - 01/19/20 04:20 INR 1.04 (0.8-1.3) 01/19/20 04:20 APTT 32.0 SECONDS (22.9-36.5) 01/19/20 04:20 PTT Comment - 01/19/20 04:20 Sodium 140 mmol/L (136-145) 01/19/20 04:20 Corrected Sodium 142 mmol/L (136-145) 01/19/20 04:20 Potassium 4.4 mmol/L (3.5-5.1) 01/19/20 04:20 Chloride 102 mmol/L (98-107) 01/19/20 04:20 Carbon Dioxide 29.2 mmol/L (21-32) 01/19/20 04:20 BUN 52 mg/dL (7-18) H 01/19/20 04:20 Creatinine 1.31 mg/dL (0.70-1.30) H 01/19/20 04:20 Est GFR (MDRD) Af Amer > 60 (>60) 01/19/20 04:20 Est GFR (MDRD) Non-Af 56 (>60) L 01/19/20 04:20 Glucose 170 mg/dL (65-99) H 01/19/20 04:20 Calcium 9.5 mg/dL (8.5-10.1) 01/19/20 04:20 Corrected Calcium TNP 01/19/20 04:20 Magnesium 2.1 mg/dL (1.7-2.9) 01/19/20 04:20 Total Bilirubin 1.10 mg/dL (0.2-1.0) H 01/19/20 04:20 AST 26 Units/L (15-37) 01/19/20 04:20 ALT 45 Units/L (12-78) 01/19/20 04:20 Alkaline Phosphatase 62 Units/L (46-116) 01/19/20 04:20 Creatine Kinase 46 Units/L (39-308) 01/19/20 04:20 CK-MB (CK-2) < 1.0 ng/mL (0-4.0) 01/19/20 04:20 CK/CKMB % Calc 2.2 % (<4) 01/19/20 04:20 Troponin I < 0.02 ng/mL (0-1.5) 01/19/20 04:20 Total Protein 7.6 g/dL (6.4-8.2) 01/19/20 04:20 Albumin 3.9 g/dL (3.4-5.0) 01/19/20 04:20 Globulin 3.7 g/dL (2.5-4.5) 01/19/20 04:20 Albumin/Globulin Ratio 1.1 Ratio (1.1-2.1) 01/19/20 04:20 Specimen Type Clean catch urine 01/19/20 04:46 Urine Color Yellow (YELLOW) 01/19/20 04:46 Urine Appearance Slightly hazy (CLEAR) 01/19/20 04:46 Urine pH 6.0 (5.0 - 8.0) 01/19/20 04:46 Ur Specific [place] 1.015 (1.000-1.030) 01/19/20 04:46 Urine Protein 2+ (NEGATIVE) 01/19/20 04:46 Urine Glucose (UA) Negative (NEGATIVE) 01/19/20 04:46 Urine Ketones 2+ (NEGATIVE) 01/19/20 04:46 Urine Occult Blood 1+ (NEGATIVE) 01/19/20 04:46 Urine Nitrite Negative (NEGATIVE) 01/19/20 04:46 Urine Bilirubin Negative (NEGATIVE) 01/19/20 04:46 Urine Urobilinogen 1+ (NORMAL) 01/19/20 04:46 Ur Leukocyte Esterase Negative (NEGATIVE) 01/19/20 04:46 Urine RBC 0-2 /HPF (0-3) 01/19/20 04:46 Urine WBC None seen /HPF (0-5) 01/19/20 04:46 Ur Squamous Epith Cells Few /HPF (NEGATIVE) 01/19/20 04:46 Amorphous Sediment 1+ /HPF (NEGATIVE) 01/19/20 04:46 Urine Bacteria Trace /HPF (NEGATIVE) 01/19/20 04:46 Urine Mucus Few /HPF (NEGATIVE) 01/19/20 04:46 Ur Culture Indicated? No/not indicated 01/19/20 04:46 Opioid - Opioid Risk Tool Age (Amador box if 16-45): No History of Preadolescent Sexual Abuse: No Total: 0 Total Score Risk Category: Low Risk - Diagnosis Discharge Problem: Dehydration, Hyperglycemia, Left hemiplegia, Unable to ambulate, Self-care deficit for feeding, bathing, and toileting, Essential hypertension CVA (cerebral vascular accident) Qualifiers: CVA mechanism: unspecified Qualified Code(s): I63.9 - Cerebral infarction, unspecified - Discharge Plan Disposition: ADMITTED INPATIENT Condition: Stable - Follow ups/Referrals Follow ups/Referrals: Ab Dinh [Primary Care Provider] - 3 days - Instructions
[2020-01-19] MEDS ORDERED: NS 1000 ML 1,000 ML ONE (04:04)
[2020-01-19] MEDS ORDERED: ADACEL or BOOSTRIX TDaP VACCINE IM ONE (04:22)
[2020-01-19 04:42] LABS: BASOPHILS % (AUTO) 0.5 % (0.2-1.0); EOSINOPHILS # (AUTO) 0.1 x10^3/uL (0.0-0.2); EOSINOPHILS % (AUTO) 1.5 % (0.9-2.9); HEMATOCRIT 45.9 % (42.0-54.0); HEMOGLOBIN 15.6 g/dL (13.5-18.0); LYMPHOCYTES % (AUTO) 13.4 % (21.0-51.0); MEAN CORPUSCULAR HEMOGLOBIN 31.4 pg (27.0-34.0); MEAN CORPUSCULAR VOLUME 92.3 fL (80.0-100.0); MEAN PLATELET VOLUME 10.6 fL (7.4-11.0); MONOCYTES # (AUTO) 0.5 x10^3/uL (0.3-0.8); MONOCYTES % (AUTO) 6.2 % (0.0-13.0); NEUTROPHILS # (AUTO) 6.1 x10^3/uL (2.2-4.8); NEUTROPHILS % (AUTO) 78.4 % (42.0-75.0); PLATELET COUNT 167 X10^3/uL (150.0-450.0); RED BLOOD COUNT 4.98 X10^6/uL (4.7-6.0); RED CELL DISTRIBUTION WIDTH 13.9 % (11.6-16.5); WHITE BLOOD COUNT 7.8 X10^3/uL (3.6-10.0)
[2020-01-19 04:47] LABS: BLOOD UREA NITROGEN 52 mg/dL (7-18); CALCIUM 9.5 mg/dL (8.5-10.1); CARBON DIOXIDE 29.2 mmol/L (21-32); CHLORIDE 102 mmol/L (98-107); COR NA(FOR HYPERGLY) 142 mmol/L (136-145); CREATININE 1.31 mg/dL (0.70-1.30); SODIUM 140 mmol/L (136-145); TROPONIN I < 0.02 ng/mL (0-1.5); eGFR NON BLACK RACES 56 (>60)
[2020-01-19] MEDS: NS 1000 ML 1,000 ML IV SCH ×4 (04:51→18:55)
[2020-01-19 04:52] LABS: ALANINE AMINOTRANSFERASE 45 Units/L (12-78); ALBUMIN 3.9 g/dL (3.4-5.0); ALKALINE PHOSPHATASE 62 Units/L (46-116); ASPARTATE AMINO TRANSFERASE 26 Units/L (15-37); CKMB % 2.2 % (<4); CREATINE KINASE 46 Units/L (39-308); CREATINE KINASE MB < 1.0 ng/mL (0-4.0); MAGNESIUM 2.1 mg/dL (1.7-2.9); TOTAL PROTEIN 7.6 g/dL (6.4-8.2)
[2020-01-19 04:57] LABS: BILIRUBIN,URINE NEGATIVE (NEGATIVE); BLOOD/HEMOGLOBIN,URINE 1+ (NEGATIVE); GLUCOSE, URINE NEGATIVE (NEGATIVE); KETONES,URINE 2+ (NEGATIVE); LEUKOCYTE ESTERASE ,URINE NEGATIVE (NEGATIVE); NITRITES,URINE NEGATIVE (NEGATIVE); PROTEIN,URINE 2+ (NEGATIVE); UROBILINOGEN,URINE 1+ (NORMAL)
[2020-01-19 05:13] LABS: APPEARANCE,URINE SLIGHTLY HAZY (CLEAR); COLOR,URINE YELLOW (YELLOW)
[2020-01-19 05:18] LABS: BACTERIA,URINE TRACE /HPF (NEGATIVE); RBC,URINE 0-2 /HPF (0-3); SQUAMOUS EPITHELIAL CELL,UR FEW /HPF (NEGATIVE)
[2020-01-19 05:19] LABS: AMORPHOUS SEDIMENT,UR 1+ /HPF (NEGATIVE); MUCUS,URINE FEW /HPF (NEGATIVE)
--- NOTE | 2020-01-19 05:41 | RAD ---
Chest AP portableIndication: Chest painComparison December 28, 2019Findings: There is no pneumothorax, effusion or consolidation. Heart size is prominent.IMPRESSIONProminent heart size without new acute chest process or change from the prior.Electronically signed by: ELADIO CLEMENT (January 19, 2020 05:40:08)
[2020-01-19] MEDS: GLUCOTROL PO SCH ×2 (08:22→20:45)
[2020-01-19] MEDS: ZESTRIL TAB 40 MG PO SCH (08:22)
[2020-01-19] MEDS: NORVASC TAB 10 MG PO SCH (08:23)
[2020-01-19] MEDS: ELIQUIS PO SCH ×2 (08:23→20:45)
[2020-01-19] MEDS: HumuLIN R SC PRN ×2 (12:22→20:51)
[2020-01-19 12:42] VITALS: BMI 25.5
[2020-01-19] MEDS ORDERED: NORCO 10/325 TAB ONE (17:37)
[2020-01-19] MEDS: NORCO 10/325 TAB PO PRN (17:39)
--- NOTE | 2020-01-19 20:34 | DR.H&P ---
H&P - History & Physical for Day of: H&P Date: 01/19/20 - Chief Complaint Chief Complaint: WEAKNESS, INCONTINENCE, UNABLE TO CARE FOR HIMSELF - History of Present Illness History of Present Illness: IS A 79 YEAR OLD PATIENT OF . HE PRESENTED TO THE ER VIA EMS AFTER HIS NEIGHBORS CALLED FOR A WELL-CHECK. EMS REPORTS THAT ON ARRIVAL TO SCENE, PATIENT WAS COVED IN URINE AND FECES. PATIENT REPORTS HAVING A STROKE ABOUT A MONTH AGO. SINCE THEN, PATIENT IS UNABLE TO WALK OR STAND WITHOUT ASSISTANCE. HE HAS RESIDUAL LEFT SIDED WEAKNESS. HE IS UNABLE TO PREPARE FOOD FOR HIMSELF OR GO BACK AND FORTH TO THE BATHROOM. [facility] SEE HIM A FEW DAYS A WEEK. HE DENIES EATING IN THE PAST TWO DAYS. HE DENIES PAIN, SOB, COUGH, OR FEVER. OTHER PMH INCLUDES HTN, DIABETES II, AND HYPERLIPIDEMIA. ON ARRIVAL TO THE ER, VITALS WERE 98.7-64-21-97%-157/84. LABS WERE OBTAINED. ABNORMAL LAB VALUES INCLUDE THE FOLLOWING: BUN 52, CREATININE 1.31, TOTAL BILI 1.10, CARDIAC ENZYMES WITHIN NORMAL LIMITS. A CHEST XRAY WAS OBTAINED AND REVEALED: Prominent heart size without new acute chest process or change from the prior. EKG REVEALED: SINUS RHYTHM WITH HR 57. [facility] WAS CONTACTED AND REPORT WAS FILED. HE WAS ADMITTED TO THE HOSPITAL FOR FURTHER EVALUATION AND TREATMENT OF DEHYDRATION, HYPERGLYCEMIA, AND FAILURE TO THRIVE. HE WAS STARTED ON NS AT 75 ML/HR, DUONEBS Q6H PRN, NORVASC 10MG PO DAILY, ELIQUIS 5MG PO BID, GLIPIZIDE 20MG PO BID, NORCO Q8H PRN, HUMULIN R SLIDING SCALE, LISINOPRIL 40MG PO DAILY, AND PRAVASTATIN 40MG PO HS. WE WILL HAVE PHYSICAL THERAPY SEE HIM IN THE MORNING. OTHERWISE, WE PLAN TO FOLLOW UP WITH AM LABS AND CONTINUE TO MONITOR. - Past Medical History Past Medical History: CVA, Diabetes, Dyslipidemia, Hypertension - Past Surgical History Surgical History: Ortho Surgery - Family History Family Medical History: Coronary Artery Disease, Hypertension - Social History Does patient currently use any type of tobacco product: Yes Have you used tobacco products in the last 12 months: Yes Type of Tobacco Use: Cigars How many years tobacco product used: 70 Does any household member use tobacco: No Alcohol Use: None Drug Use: None - Medications Home Medications: No Known Drug Allergies Allergy (Verified 01/10/19 09:15) - Review of Systems Constitutional: See HPI, Weakness Eyes: No Symptoms Reported ENT: No Symptoms Reported Respiratory: No Symptoms Reported Cardiovascular: No Symptoms Reported Gastrointestinal: No Symptoms Reported Genitourinary: Incontinence Musculoskeletal: No Symptoms Reported Skin: No Symptoms Reported Neurological: See HPI, Weakness - Physical Exam Vital Signs: Temperature 97.6 F Pulse Rate [Right Brachial] 64 Pulse Rate 62 Respiratory Rate 18 Blood Pressure [Right Arm] 147/79 Blood Pressure 160/85 O2 Sat by Pulse Oximetry 100 Oriented: Normal Eyes: Normal Ear: Normal Nose: Normal Throat: Normal Respiratory: Diminished Throughout Cardiovascular: Normal : Normal Auscultation: Bowel Sounds: Normal Palpation: Normal Tenderness: Normal Skin: Normal Musculoskeletal: Left, Arm, Leg, Motor Deficit, Instability Psychiatric: Normal Mood Description: Calm Affect: Normal Speech Pattern: Clear - Assessment/Plan (1) Dehydration Status: Acute Plan: ADMIT, NS AT 75 ML/HR, DUONEBS Q6H PRN, NORVASC 10MG PO DAILY, ELIQUIS 5MG PO BID, GLIPIZIDE 20MG PO BID, NORCO Q8H PRN, HUMULIN R SLIDING SCALE, LISINOPRIL 40MG PO DAILY, AND PRAVASTATIN 40MG PO HS. CONSULT PHYSICAL THERAPY (2) Hyperglycemia Status: Acute (3) Failure to thrive in adult Status: Acute (4) Hyperlipidemia Qualifiers: Hyperlipidemia type: mixed hyperlipidemia Status: Acute (5) CVA (cerebral vascular accident) Qualifiers: CVA mechanism: unspecified Qualified Code(s): I63.9 - Cerebral infarction, unspecified Status: Chronic (6) Hypertension Qualifiers: Hypertension type: essential hypertension Status: Chronic (7) Diabetes Qualifiers: Diabetes mellitus type: type 2 Diabetes mellitus intermediate card tender insulin use: unspecified penitentiary insulin use status Diabetes mellitus complication status: without complication Qualified Code(s): E11.9 - Type 2 diabetes mellitus without complications Status: Chronic - Allergies Allergies/Adverse Reactions: Allergies Allergy/AdvReac Type Severity Reaction Status Date / Time No Known Drug Allergies Allergy Verified 01/10/19 09:15
[2020-01-19] MEDS: SNACK - Diabetic Appropriate PO SCH (20:44)
[2020-01-19] MEDS: PRAVACHOL PO SCH (20:45)
[2020-01-20] MEDS: NS 1000 ML 1,000 ML IV SCH ×4 (03:45→23:26)
[2020-01-20 05:26] LABS: ALANINE AMINOTRANSFERASE 68 Units/L (12-78); ALBUMIN 3.2 g/dL (3.4-5.0); ALKALINE PHOSPHATASE 54 Units/L (46-116); ASPARTATE AMINO TRANSFERASE 39 Units/L (15-37); BLOOD UREA NITROGEN 44 mg/dL (7-18); CALCIUM 8.7 mg/dL (8.5-10.1); CARBON DIOXIDE 24.4 mmol/L (21-32); CHLORIDE 106 mmol/L (98-107); COR CA(FOR HYPOALB) 9.3 mg/dL (8.5-10.1); CREATININE 1.01 mg/dL (0.70-1.30); SODIUM 140 mmol/L (136-145); TOTAL PROTEIN 6.4 g/dL (6.4-8.2); eGFR NON BLACK RACES > 60 (>60)
[2020-01-20 05:29] LABS: BASOPHILS % (AUTO) 0.3 % (0.2-1.0); EOSINOPHILS # (AUTO) 0.1 x10^3/uL (0.0-0.2); EOSINOPHILS % (AUTO) 1.1 % (0.9-2.9); HEMATOCRIT 41.7 % (42.0-54.0); HEMOGLOBIN 14.2 g/dL (13.5-18.0); LYMPHOCYTES # (AUTO) 0.9 X10^3/uL (1.3-2.9); MEAN CORPUSCULAR HEMOGLOBIN 31.3 pg (27.0-34.0); MEAN CORPUSCULAR HGB CONC 34.2 g/dL (33.0-35.0); MEAN CORPUSCULAR VOLUME 91.6 fL (80.0-100.0); MEAN PLATELET VOLUME 10.6 fL (7.4-11.0); MONOCYTES # (AUTO) 0.7 x10^3/uL (0.3-0.8); MONOCYTES % (AUTO) 6.4 % (0.0-13.0); NEUTROPHILS # (AUTO) 8.6 x10^3/uL (2.2-4.8); NEUTROPHILS % (AUTO) 83.2 % (42.0-75.0); PLATELET COUNT 150 X10^3/uL (150.0-450.0); RED BLOOD COUNT 4.55 X10^6/uL (4.7-6.0); RED CELL DISTRIBUTION WIDTH 13.9 % (11.6-16.5); WHITE BLOOD COUNT 10.4 X10^3/uL (3.6-10.0)
--- NOTE | 2020-01-20 08:16 | PCM.PROG ---
Progress Note Progress Note for Day of Date of Exam: 01/20/20 Subjective Subjective: Pt is a 79 yo m pmhx HTN, DMT2, CVA admitted for dehydration, hyperglycemia, and failure to thrive. His sx have improved today. He is eating breakfast. Labs/Imaging: Wbc 10.4, Hgb 14.2, Plt 150, Na 140, K 3.6, Cr 1.01, Gluc 100. CXR negative. He is receiving IVF. He is interested in residential placement. Will discuss with CM available options, otherwise continue home medications and current care. Continue to monitor and follow up morning labs. Past Medical Family Social History Past Med/Fam/Surg Hx: No changes since H&P Allergies: Allergies No Known Drug Allergies Allergy (Verified 01/10/19 09:15) Review of Systems ROS: No change since H&P Vital Signs and I&O's Vital Signs: Temperature 97.7 F Pulse Rate [Right Brachial] 60 Pulse Rate 62 Respiratory Rate 20 Blood Pressure [Right Arm] 138/70 Blood Pressure 160/85 O2 Sat by Pulse Oximetry 100 Intake and Output: Intake & Output 01/17/20 01/18/20 01/19/20 01/20/20 23:59 23:59 23:59 23:59 Intake Total 2083 180 / 180 Output Total Balance 2082 180 / 180 Physical Exam Oriented: Normal Eyes: Normal Ear: Normal Nose: Normal Throat: Normal Respiratory: Normal Cardiovascular: Normal : Normal Auscultation: Bowel Sounds: Normal Tenderness: Normal Skin: Normal Musculoskeletal: Left, Arm, Leg, Motor Deficit and Instability Psychiatric: Normal Mood Description: Calm Affect: Normal Speech Pattern: Appropriate Laboratory and Diagnostics Result Diagrams: 01/20/20 04:27 01/20/20 04:27 Labs: Laboratory WBC 10.4 X10^3/uL (3.6-10.0) H 01/20/20 04:27 RBC 4.55 X10^6/uL (4.7-6.0) L 01/20/20 04:27 Hgb 14.2 g/dL (13.5-18.0) 01/20/20 04:27 Hct 41.7 % (42.0-54.0) L 01/20/20 04:27 MCV 91.6 fL (80.0-100.0) 01/20/20 04: MCH 31.3 pg (27.0-34.0) 01/20/20 04: MCHC 34.2 g/dL (33.0-35.0) 01/20/20 04: RDW 13.9 % (11.6-16.5) 01/20/20 04: Plt Count 150 X10^3/uL (150.0-450.0) 01/20/20 04: MPV 10.6 fL (7.4-11.0) 01/20/20 04: Neut % (Auto) 83.2 % (42.0-75.0) H 01/20/20 04: Lymph % (Auto) 9.0 % (21.0-51.0) L 01/20/20 04: [place] % (Auto) 6.4 % (0.0-13.0) 01/20/20 04: Eos % (Auto) 1.1 % (0.9-2.9) 01/20/20 04: Baso % (Auto) 0.3 % (0.2-1.0) 01/20/20 04: Neut # (Auto) 8.6 x10^3/uL (2.2-4.8) H 01/20/20 04: Lymph # (Auto) 0.9 X10^3/uL (1.3-2.9) L 01/20/20 04: [place] # (Auto) 0.7 x10^3/uL (0.3-0.8) 01/20/20 04: Eos # (Auto) 0.1 x10^3/uL (0.0-0.2) 01/20/20 04: Baso # (Auto) 0.0 X10^3/uL (0.0-0.1) 01/20/20 04: Absolute Nucleated RBC 0.0 /100WBC 01/20/20 04: PT 13.3 SECONDS (11.8-14.3) 01/19/20 04:20 INR Target Range - 01/19/20: INR 1.04 (0.8-1.3) 01/19/20 04: APTT 32.0 SECONDS (22.9-36.5) 01/19/20 04:20 PTT Comment - 01/19/20 04:20 Sodium 140 mmol/L (136-145) 01/20/20 04:27 Corrected Sodium TNP 01/20/20 04:27 Potassium 3.6 mmol/L (3.5-5.1) 01/20/20 04:27 Chloride 106 mmol/L (98-107) 01/20/20 04:27 Carbon Dioxide 24.4 mmol/L (21-32) 01/20/20 04:27 BUN 44 mg/dL (7-18) H 01/20/20 04:27 Creatinine 1.01 mg/dL (0.70-1.30) 01/20/20 04:27 Est GFR (MDRD) Af Amer > 60 (>60) 01/20/20 04:27 Est GFR (MDRD) Non-Af > 60 (>60) 01/20/20 04:27 Glucose 100 mg/dL (65-99) H 01/20/20 04:27 POC Glucose (mg/dL) 133 mg/dL (65-99) H 01/20/20 05:57 Calcium 8.7 mg/dL (8.5-10.1) 01/20/20 04:27 Corrected Calcium 9.3 mg/dL (8.5-10.1) 01/20/20 04:27 Magnesium 2.1 mg/dL (1.7-2.9) 01/19/20 04:20 Total Bilirubin 0.70 mg/dL (0.2-1.0) 01/20/20 04:27 AST 39 Units/L (15-37) H 01/20/20 04:27 ALT 68 Units/L (12-78) 01/20/20 04:27 Alkaline Phosphatase 54 Units/L (46-116) 01/20/20 04:27 Creatine Kinase 46 Units/L (39-308) 01/19/20 04:20 CK-MB (CK-2) < 1.0 ng/mL (0-4.0) 01/19/20 04:20 CK/CKMB % Calc 2.2 % (<4) 01/19/20 04:20 Troponin I < 0.02 ng/mL (0-1.5) 01/19/20 04:20 Total Protein 6.4 g/dL (6.4-8.2) 01/20/20 04:27 Albumin 3.2 g/dL (3.4-5.0) L 01/20/20 04:27 Globulin 3.2 g/dL (2.5-4.5) 01/20/20 04:27 Albumin/Globulin Ratio 1.0 Ratio (1.1-2.1) L 01/20/20 04:27 Specimen Type Clean catch urine 01/19/20 04:46 Urine Color Yellow (YELLOW) 01/19/20 04:46 Urine Appearance Slightly hazy (CLEAR) 01/19/20 04:46 Urine pH 6.0 (5.0 - 8.0) 01/19/20 04:46 Ur Specific [place] 1.015 (1.000-1.030) 01/19/20 04:46 Urine Protein 2+ (NEGATIVE) 01/19/20 04:46 Urine Glucose (UA) Negative (NEGATIVE) 01/19/20 04:46 Urine Ketones 2+ (NEGATIVE) 01/19/20 04:46 Urine Occult Blood 1+ (NEGATIVE) 01/19/20 04:46 Urine Nitrite Negative (NEGATIVE) 01/19/20 04:46 Urine Bilirubin Negative (NEGATIVE) 01/19/20 04:46 Urine Urobilinogen 1+ (NORMAL) 01/19/20 04:46 Ur Leukocyte Esterase Negative (NEGATIVE) 01/19/20 04:46 Urine RBC 0-2 /HPF (0-3) 01/19/20 04:46 Urine WBC None seen /HPF (0-5) 01/19/20 04:46 Ur Squamous Epith Cells Few /HPF (NEGATIVE) 01/19/20 04:46 Amorphous Sediment 1+ /HPF (NEGATIVE) 01/19/20 04:46 Urine Bacteria Trace /HPF (NEGATIVE) 01/19/20 04:46 Urine Mucus Few /HPF (NEGATIVE) 01/19/20 04:46 Ur Culture Indicated? No/not indicated 01/19/20 04:46 Plan (1) Dehydration: Status: Acute Plan: ADMIT, NS AT 75 ML/HR, DUONEBS Q6H PRN, NORVASC 10MG PO DAILY, ELIQUIS 5MG PO BID, GLIPIZIDE 5MG PO BID, NORCO Q8H PRN, HUMULIN R SLIDING SCALE, LISINOPRIL 40MG PO DAILY, AND PRAVASTATIN 40MG PO HS. CONSULT PHYSICAL THERAPY (2) Hyperglycemia: Status: Acute (3) Failure to thrive in adult: Status: Acute (4) Hyperlipidemia: Status: Acute Qualifiers: Hyperlipidemia type: mixed hyperlipidemia (5) CVA (cerebral vascular accident): Status: Chronic Qualifiers: CVA mechanism: unspecified Qualified Code(s): I63.9 - Cerebral infarction, unspecified (6) Hypertension: Status: Chronic Qualifiers: Hypertension type: essential hypertension (7) Diabetes: Status: Chronic Qualifiers: Diabetes mellitus complication status: without complication Diabetes mellitus terminal computer operator insulin use: unspecified terminal computer operator insulin use status Diabetes mellitus type: type 2 Qualified Code(s): E11.9 - Type 2 diabetes mellitus without complications
[2020-01-20] MEDS: ELIQUIS PO SCH ×2 (08:28→21:06)
[2020-01-20] MEDS: NORVASC TAB 10 MG PO SCH (08:28)
[2020-01-20] MEDS: ZESTRIL TAB 40 MG PO SCH (08:28)
[2020-01-20] MEDS: GLUCOTROL PO SCH ×2 (08:29→21:06)
[2020-01-20] MEDS: NORCO 10/325 TAB PO PRN ×2 (08:29→17:23)
[2020-01-20] MEDS: HumuLIN R SC PRN ×2 (17:22→21:08)
[2020-01-20] MEDS: SNACK - Diabetic Appropriate PO SCH (20:30)
[2020-01-20] MEDS: PRAVACHOL PO SCH (21:06)
[2020-01-21 05:13] LABS: BASOPHILS % (AUTO) 0.2 % (0.2-1.0); EOSINOPHILS # (AUTO) 0.1 x10^3/uL (0.0-0.2); EOSINOPHILS % (AUTO) 0.5 % (0.9-2.9); HEMATOCRIT 43.2 % (42.0-54.0); HEMOGLOBIN 14.5 g/dL (13.5-18.0); LYMPHOCYTES # (AUTO) 0.9 X10^3/uL (1.3-2.9); LYMPHOCYTES % (AUTO) 8.1 % (21.0-51.0); MEAN CORPUSCULAR HEMOGLOBIN 31.1 pg (27.0-34.0); MEAN CORPUSCULAR HGB CONC 33.4 g/dL (33.0-35.0); MONOCYTES % (AUTO) 8.5 % (0.0-13.0); NEUTROPHILS # (AUTO) 9.6 x10^3/uL (2.2-4.8); NEUTROPHILS % (AUTO) 82.7 % (42.0-75.0); PLATELET COUNT 126 X10^3/uL (150.0-450.0); RED BLOOD COUNT 4.65 X10^6/uL (4.7-6.0); RED CELL DISTRIBUTION WIDTH 13.8 % (11.6-16.5); WHITE BLOOD COUNT 11.5 X10^3/uL (3.6-10.0)
[2020-01-21 05:16] LABS: BLOOD UREA NITROGEN 34 mg/dL (7-18); CALCIUM 8.4 mg/dL (8.5-10.1); CARBON DIOXIDE 25.3 mmol/L (21-32); CHLORIDE 107 mmol/L (98-107); CREATININE 0.95 mg/dL (0.70-1.30); SODIUM 139 mmol/L (136-145); eGFR NON BLACK RACES > 60 (>60)
[2020-01-21] MEDS ORDERED: D50W ABBOJECT SYR IV ONE (05:50)
[2020-01-21] MEDS ORDERED: D50W ABBOJECT SYR ONE (06:12)
--- NOTE | 2020-01-21 08:06 | PCM.PROG ---
Progress Note Progress Note for Day of Date of Exam: 01/21/20 Subjective Subjective: Pt is a 79 yo m pmhx HTN, DMT2, CVA admitted for dehydration, hyperglycemia, and failure to thrive. He is feeling better this morning. Labs/Imaging: Wbc 11.5, Hgb 14.5, Plt 126, Na 139, K 4.3, Cr 0.95, Gluc 67. CXR negative. He is receiving IVF. TISHA working on mcc placement, [facility]. Continue to monitor and follow up morning labs. Past Medical Family Social History Past Med/Fam/Surg Hx: No changes since H&P Allergies: Allergies No Known Drug Allergies Allergy (Verified 01/10/19 09:15) Review of Systems ROS: No change since H&P Vital Signs and I&O's Vital Signs: Temperature 98.6 F Pulse Rate [Right Brachial] 65 Pulse Rate 62 Respiratory Rate 18 Blood Pressure [Right Arm] 144/76 Blood Pressure 160/85 O2 Sat by Pulse Oximetry 99 Intake and Output: Intake & Output 01/18/20 01/19/20 01/20/20 01/21/20 23:59 23:59 23:59 23:59 Intake Total 2083 2306 / 2306 790 / 790 Output Total Balance 2082 2306 / 2306 790 / 790 Physical Exam Oriented: Normal Eyes: Normal Ear: Normal Nose: Normal Throat: Normal Respiratory: Normal Cardiovascular: Normal : Normal Auscultation: Bowel Sounds: Normal Tenderness: Normal Skin: Normal Musculoskeletal: Left, Arm, Leg, Motor Deficit and Instability Psychiatric: Normal Mood Description: Calm Affect: Normal Speech Pattern: Appropriate Laboratory and Diagnostics Result Diagrams: 01/21/20 04:20 01/21/20 04:20 Labs: Laboratory WBC 11.5 X10^3/uL (3.6-10.0) H 01/21/20 04:20 RBC 4.65 X10^6/uL (4.7-6.0) L 01/21/20 04:20 Hgb 14.5 g/dL (13.5-18.0) 01/21/20 04:20 Hct 43.2 % (42.0-54.0) 01/21/20 04:20 MCV 93.0 fL (80.0-100.0) 01/21/20 04:20 MCH 31.1 pg (27.0-34.0) 01/21/20 04:20 MCHC 33.4 g/dL (33.0-35.0) 01/21/20 04:20 RDW 13.8 % (11.6-16.5) 01/21/20 04:20 Plt Count 126 X10^3/uL (150.0-450.0) L 01/21/20 04:20 MPV 11.0 fL (7.4-11.0) 01/21/20 04:20 Neut % (Auto) 82.7 % (42.0-75.0) H 01/21/20 04:20 Lymph % (Auto) 8.1 % (21.0-51.0) L 01/21/20 04:20 [place] % (Auto) 8.5 % (0.0-13.0) 01/21/20 04:20 Eos % (Auto) 0.5 % (0.9-2.9) L 01/21/20 04:20 Baso % (Auto) 0.2 % (0.2-1.0) 01/21/20 04:20 Neut # (Auto) 9.6 x10^3/uL (2.2-4.8) H 01/21/20 04:20 Lymph # (Auto) 0.9 X10^3/uL (1.3-2.9) L 01/21/20 04:20 [place] # (Auto) 1.0 x10^3/uL (0.3-0.8) H 01/21/20 04:20 Eos # (Auto) 0.1 x10^3/uL (0.0-0.2) 01/21/20 04:20 Baso # (Auto) 0.0 X10^3/uL (0.0-0.1) 01/21/20 04:20 Absolute Nucleated RBC 0.0 /100WBC 01/21/20 04:20 PT 13.3 SECONDS (11.8-14.3) 01/19/20 04:20 INR Target Range - 01/19/20 04:20 INR 1.04 (0.8-1.3) 01/19/20 04:20 APTT 32.0 SECONDS (22.9-36.5) 01/19/20 04:20 PTT Comment - 01/19/20 04:20 Sodium 139 mmol/L (136-145) 01/21/20 04:20 Corrected Sodium TNP 01/21/20 04:20 Potassium 4.3 mmol/L (3.5-5.1) 01/21/20 04:20 Chloride 107 mmol/L (98-107) 01/21/20 04:20 Carbon Dioxide 25.3 mmol/L (21-32) 01/21/20 04:20 BUN 34 mg/dL (7-18) H 01/21/20 04:20 Creatinine 0.95 mg/dL (0.70-1.30) 01/21/20 04:20 Est GFR (MDRD) Af Amer > 60 (>60) 01/21/20 04:20 Est GFR (MDRD) Non-Af > 60 (>60) 01/21/20 04:20 Glucose 67 mg/dL (65-99) 01/21/20 04:20 POC Glucose (mg/dL) 127 mg/dL (65-99) H 01/21/20 06:54 Calcium 8.4 mg/dL (8.5-10.1) L 01/21/20 04:20 Corrected Calcium 9.3 mg/dL (8.5-10.1) 01/20/20 04:27 Magnesium 2.1 mg/dL (1.7-2.9) 01/19/20 04:20 Total Bilirubin 0.70 mg/dL (0.2-1.0) 01/20/20 04:27 AST 39 Units/L (15-37) H 01/20/20 04:27 ALT 68 Units/L (12-78) 01/20/20 04:27 Alkaline Phosphatase 54 Units/L (46-116) 01/20/20 04:27 Creatine Kinase 46 Units/L (39-308) 01/19/20 04:20 CK-MB (CK-2) < 1.0 ng/mL (0-4.0) 01/19/20 04:20 CK/CKMB % Calc 2.2 % (<4) 01/19/20 04:20 Troponin I < 0.02 ng/mL (0-1.5) 01/19/20 04:20 Total Protein 6.4 g/dL (6.4-8.2) 01/20/20 04:27 Albumin 3.2 g/dL (3.4-5.0) L 01/20/20 04:27 Globulin 3.2 g/dL (2.5-4.5) 01/20/20 04:27 Albumin/Globulin Ratio 1.0 Ratio (1.1-2.1) L 01/20/20 04:27 Specimen Type Clean catch urine 01/19/20 04:46 Urine Color Yellow (YELLOW) 01/19/20 04:46 Urine Appearance Slightly hazy (CLEAR) 01/19/20 04:46 Urine pH 6.0 (5.0 - 8.0) 01/19/20 04:46 Ur Specific [place] 1.015 (1.000-1.030) 01/19/20 04:46 Urine Protein 2+ (NEGATIVE) 01/19/20 04:46 Urine Glucose (UA) Negative (NEGATIVE) 01/19/20 04:46 Urine Ketones 2+ (NEGATIVE) 01/19/20 04:46 Urine Occult Blood 1+ (NEGATIVE) 01/19/20 04:46 Urine Nitrite Negative (NEGATIVE) 01/19/20 04:46 Urine Bilirubin Negative (NEGATIVE) 01/19/20 04:46 Urine Urobilinogen 1+ (NORMAL) 01/19/20 04:46 Ur Leukocyte Esterase Negative (NEGATIVE) 01/19/20 04:46 Urine RBC 0-2 /HPF (0-3) 01/19/20 04:46 Urine WBC None seen /HPF (0-5) 01/19/20 04:46 Ur Squamous Epith Cells Few /HPF (NEGATIVE) 01/19/20 04:46 Amorphous Sediment 1+ /HPF (NEGATIVE) 01/19/20 04:46 Urine Bacteria Trace /HPF (NEGATIVE) 01/19/20 04:46 Urine Mucus Few /HPF (NEGATIVE) 01/19/20 04:46 Ur Culture Indicated? No/not indicated 01/19/20 04:46 Plan (1) Dehydration: Status: Acute Plan: IVF NS@75 ML/HR, DUONEBS Q6H PRN, NORVASC 10MG PO DAILY, ELIQUIS 5MG PO BID, GLIPIZIDE 5MG PO BID, NORCO Q8H PRN, HUMULIN R SLIDING SCALE, LISINOPRIL 40MG PO DAILY, AND PRAVASTATIN 40MG PO HS. CONSULT PHYSICAL THERAPY (2) Hyperglycemia: Status: Acute (3) Failure to thrive in adult: Status: Acute (4) Hyperlipidemia: Status: Inactive Qualifiers: Hyperlipidemia type: mixed hyperlipidemia (5) CVA (cerebral vascular accident): Status: Chronic Qualifiers: CVA mechanism: unspecified Qualified Code(s): I63.9 - Cerebral infarction, unspecified (6) Hypertension: Status: Chronic Qualifiers: Hypertension type: essential hypertension (7) Diabetes: Status: Chronic Qualifiers: Diabetes mellitus complication status: without complication Diabetes mellitus crate liner insulin use: unspecified longterm insulin use status Diabetes mellitus type: type 2 Qualified Code(s): E11.9 - Type 2 diabetes mellitus without complications
[2020-01-21] MEDS: ELIQUIS PO SCH ×2 (09:05→20:49)
[2020-01-21] MEDS: GLUCOTROL PO SCH ×2 (09:05→20:49)
[2020-01-21] MEDS: ZESTRIL TAB 40 MG PO SCH (09:05)
[2020-01-21] MEDS: NORVASC TAB 10 MG PO SCH (09:05)
[2020-01-21] MEDS: NORCO 10/325 TAB PO PRN ×2 (09:13→20:49)
[2020-01-21] MEDS: NS 1000 ML 1,000 ML IV SCH (11:40)
[2020-01-21] MEDS: DUONEB 0.5 MG/3 MG (3 mL) NEB PRN (12:03)
[2020-01-21] MEDS ORDERED: COLACE CAP 100 MG PO PRN (12:40)
[2020-01-21] MEDS ORDERED: MILK OF MAGNESIA PO PRN (12:40)
[2020-01-21] MEDS: MILK OF MAGNESIA PO SCH (13:02)
[2020-01-21] MEDS: SNACK - Diabetic Appropriate PO SCH (20:00)
[2020-01-21] MEDS: COLACE CAP 100 MG PO SCH (20:49)
[2020-01-21] MEDS: PRAVACHOL PO SCH (20:50)
[2020-01-22] MEDS: MILK OF MAGNESIA PO SCH ×2 (01:31→13:23)
[2020-01-22] MEDS: NS 1000 ML 1,000 ML IV SCH ×2 (03:29→05:16)
[2020-01-22 05:06] LABS: BASOPHILS % (AUTO) 0.2 % (0.2-1.0); EOSINOPHILS % (AUTO) 0.2 % (0.9-2.9); HEMATOCRIT 43.6 % (42.0-54.0); HEMOGLOBIN 14.7 g/dL (13.5-18.0); LYMPHOCYTES # (AUTO) 0.6 X10^3/uL (1.3-2.9); MEAN CORPUSCULAR HEMOGLOBIN 31.2 pg (27.0-34.0); MEAN CORPUSCULAR HGB CONC 33.8 g/dL (33.0-35.0); MEAN CORPUSCULAR VOLUME 92.1 fL (80.0-100.0); MEAN PLATELET VOLUME 10.9 fL (7.4-11.0); MONOCYTES # (AUTO) 1.1 x10^3/uL (0.3-0.8); MONOCYTES % (AUTO) 7.8 % (0.0-13.0); NEUTROPHILS # (AUTO) 12.7 x10^3/uL (2.2-4.8); NEUTROPHILS % (AUTO) 87.8 % (42.0-75.0); PLATELET COUNT 129 X10^3/uL (150.0-450.0); RED BLOOD COUNT 4.73 X10^6/uL (4.7-6.0); RED CELL DISTRIBUTION WIDTH 13.7 % (11.6-16.5); WHITE BLOOD COUNT 14.4 X10^3/uL (3.6-10.0)
[2020-01-22 05:08] LABS: BLOOD UREA NITROGEN 26 mg/dL (7-18); CALCIUM 8.5 mg/dL (8.5-10.1); CARBON DIOXIDE 24.8 mmol/L (21-32); CHLORIDE 103 mmol/L (98-107); COR NA(FOR HYPERGLY) 136 mmol/L (136-145); CREATININE 0.85 mg/dL (0.70-1.30); SODIUM 136 mmol/L (136-145); eGFR NON BLACK RACES > 60 (>60)
[2020-01-22] MEDS: NORCO 10/325 TAB PO PRN ×2 (05:14→14:52)
[2020-01-22] MEDS: ZESTRIL TAB 40 MG PO SCH (08:41)
[2020-01-22] MEDS: COLACE CAP 100 MG PO SCH ×2 (08:41→21:06)
[2020-01-22] MEDS: NORVASC TAB 10 MG PO SCH (08:42)
[2020-01-22] MEDS: GLUCOTROL PO SCH ×2 (08:42→21:07)
[2020-01-22] MEDS: ELIQUIS PO SCH ×2 (08:42→21:07)
--- NOTE | 2020-01-22 15:09 | PCM.PROG ---
Progress Note Progress Note for Day of Date of Exam: 01/22/20 Subjective Subjective: Pt is a 79 yo m pmhx HTN, DMT2, CVA admitted for dehydration, hyperglycemia, and failure to thrive. His labs have stabilized. He is doing well this morning, he states he did not eat his breakfast yet. CM working on intermediate placement, still awaiting COVID-19 testing that is pending. Continue to monitor. Past Medical Family Social History Past Med/Fam/Surg Hx: No changes since H&P Allergies: Allergies No Known Drug Allergies Allergy (Verified 01/10/19 09:15) Review of Systems ROS: No change since H&P Vital Signs and I&O's Vital Signs: Temperature 98.5 F Pulse Rate [Right Brachial] 80 Pulse Rate 72 Respiratory Rate 18 Blood Pressure [Right Arm] 166/95 Blood Pressure 160/85 O2 Sat by Pulse Oximetry 97 Intake and Output: Intake & Output 01/19/20 01/20/20 01/21/20 01/22/20 23:59 23:59 23:59 23:59 Intake Total 2083 2306 / 2306 3295 / 3295 940 / 940 Output Total Balance 2082 / 2082 2306 / 2306 3295 / 3295 940 / 940 Physical Exam Oriented: Normal Eyes: Normal Ear: Normal Nose: Normal Throat: Normal Respiratory: Normal Cardiovascular: Normal : Normal Auscultation: Bowel Sounds: Normal Tenderness: Normal Skin: Normal Musculoskeletal: Left, Arm, Leg, Motor Deficit and Instability Psychiatric: Normal Mood Description: Calm Affect: Normal Speech Pattern: Appropriate Laboratory and Diagnostics Result Diagrams: 01/22/20 04:21 01/22/20 04:21 Labs: Laboratory WBC 14.4 X10^3/uL (3.6-10.0) H 01/22/20 04:21 RBC 4.73 X10^6/uL (4.7-6.0) 01/22/20 04:21 Hgb 14.7 g/dL (13.5-18.0) 01/22/20 04:21 Hct 43.6 % (42.0-54.0) 01/22/20 04:21 MCV 92.1 fL (80.0-100.0) 01/22/20 04:21 MCH 31.2 pg (27.0-34.0) 01/22/20 04:21 MCHC 33.8 g/dL (33.0-35.0) 01/22/20 04:21 RDW 13.7 % (11.6-16.5) 01/22/20 04:21 Plt Count 129 X10^3/uL (150.0-450.0) L 01/22/20 04:21 MPV 10.9 fL (7.4-11.0) 01/22/20 04:21 Neut % (Auto) 87.8 % (42.0-75.0) H 01/22/20 04:21 Lymph % (Auto) 4.0 % (21.0-51.0) L 01/22/20 04:21 [place] % (Auto) 7.8 % (0.0-13.0) 01/22/20 04:21 Eos % (Auto) 0.2 % (0.9-2.9) L 01/22/20 04:21 Baso % (Auto) 0.2 % (0.2-1.0) 01/22/20 04:21 Neut # (Auto) 12.7 x10^3/uL (2.2-4.8) H 01/22/20 04:21 Lymph # (Auto) 0.6 X10^3/uL (1.3-2.9) L 01/22/20 04:21 [place] # (Auto) 1.1 x10^3/uL (0.3-0.8) H 01/22/20 04:21 Eos # (Auto) 0.0 x10^3/uL (0.0-0.2) 01/22/20 04:21 Baso # (Auto) 0.0 X10^3/uL (0.0-0.1) 01/22/20 04:21 Absolute Nucleated RBC 0.1 /100WBC 01/22/20 04:21 PT 13.3 SECONDS (11.8-14.3) 01/19/20 04:20 INR Target Range - 01/19/20 04:20 INR 1.04 (0.8-1.3) 01/19/20 04:20 APTT 32.0 SECONDS (22.9-36.5) 05/03/20 04:20 PTT Comment - 01/19/20 04:20 Sodium 136 mmol/L (136-145) 01/22/20 04:21 Corrected Sodium 136 mmol/L (136-145) 01/22/20 04:21 Potassium 4.3 mmol/L (3.5-5.1) 01/22/20 04:21 Chloride 103 mmol/L (98-107) 01/22/20 04:21 Carbon Dioxide 24.8 mmol/L (21-32) 01/22/20 04:21 BUN 26 mg/dL (7-18) H 01/22/20 04:21 Creatinine 0.85 mg/dL (0.70-1.30) 01/22/20 04:21 Est GFR (MDRD) Af Amer > 60 (>60) 01/22/20 04:21 Est GFR (MDRD) Non-Af > 60 (>60) 01/22/20 04:21 Glucose 117 mg/dL (65-99) H 01/22/20 04:21 POC Glucose (mg/dL) 188 mg/dL (65-99) H 01/22/20 11:29 Calcium 8.5 mg/dL (8.5-10.1) 01/22/20 04:21 Corrected Calcium 9.3 mg/dL (8.5-10.1) 01/20/20 04:27 Magnesium 2.1 mg/dL (1.7-2.9) 01/19/20 04:20 Total Bilirubin 0.70 mg/dL (0.2-1.0) 01/20/20 04:27 AST 39 Units/L (15-37) H 01/20/20 04:27 ALT 68 Units/L (12-78) 01/20/20 04:27 Alkaline Phosphatase 54 Units/L (46-116) 01/20/20 04:27 Creatine Kinase 46 Units/L (39-308) 01/19/20 04:20 CK-MB (CK-2) < 1.0 ng/mL (0-4.0) 01/19/20 04:20 CK/CKMB % Calc 2.2 % (<4) 01/19/20 04:20 Troponin I < 0.02 ng/mL (0-1.5) 01/19/20 04:20 Total Protein 6.4 g/dL (6.4-8.2) 01/20/20 04:27 Albumin 3.2 g/dL (3.4-5.0) L 01/20/20 04:27 Globulin 3.2 g/dL (2.5-4.5) 01/20/20 04:27 Albumin/Globulin Ratio 1.0 Ratio (1.1-2.1) L 01/20/20 04:27 Specimen Type Clean catch urine 01/19/20 04:46 Urine Color Yellow (YELLOW) 01/19/20 04:46 Urine Appearance Slightly hazy (CLEAR) 01/19/20 04:46 Urine pH 6.0 (5.0 - 8.0) 01/19/20 04:46 Ur Specific [place] 1.015 (1.000-1.030) 01/19/20 04:46 Urine Protein 2+ (NEGATIVE) 01/19/20 04:46 Urine Glucose (UA) Negative (NEGATIVE) 01/19/20 04:46 Urine Ketones 2+ (NEGATIVE) 01/19/20 04:46 Urine Occult Blood 1+ (NEGATIVE) 01/19/20 04:46 Urine Nitrite Negative (NEGATIVE) 01/19/20 04:46 Urine Bilirubin Negative (NEGATIVE) 01/19/20 04:46 Urine Urobilinogen 1+ (NORMAL) 01/19/20 04:46 Ur Leukocyte Esterase Negative (NEGATIVE) 01/19/20 04:46 Urine RBC 0-2 /HPF (0-3) 01/19/20 04:46 Urine WBC None seen /HPF (0-5) 01/19/20 04:46 Ur Squamous Epith Cells Few /HPF (NEGATIVE) 01/19/20 04:46 Amorphous Sediment 1+ /HPF (NEGATIVE) 01/19/20 04:46 Urine Bacteria Trace /HPF (NEGATIVE) 01/19/20 04:46 Urine Mucus Few /HPF (NEGATIVE) 01/19/20 04:46 Ur Culture Indicated? No/not indicated 01/19/20 04:46 Plan (1) Dehydration: Status: Acute Plan: Labs stabilized. DUONEBS Q6H PRN, NORVASC 10MG PO DAILY, ELIQUIS 5MG PO BID, GLIPIZIDE 5MG PO BID, NORCO Q8H PRN, HUMULIN R SLIDING SCALE, LISINOPRIL 40MG PO DAILY, AND PRAVASTATIN 40MG PO HS. CONSULT PHYSICAL THERAPY (2) Hyperglycemia: Status: Acute (3) Failure to thrive in adult: Status: Acute (4) Hyperlipidemia: Status: Inactive Qualifiers: Hyperlipidemia type: mixed hyperlipidemia (5) CVA (cerebral vascular accident): Status: Chronic Qualifiers: CVA mechanism: unspecified Qualified Code(s): I63.9 - Cerebral infarction, unspecified (6) Hypertension: Status: Chronic Qualifiers: Hypertension type: essential hypertension (7) Diabetes: Status: Chronic Qualifiers: Diabetes mellitus complication status: without complication Diabetes mellitus nursing home insulin use: unspecified manager long term care insulin use status Diabetes mellitus type: type 2 Qualified Code(s): E11.9 - Type 2 diabetes mellitus without complications
[2020-01-22] MEDS: SNACK - Diabetic Appropriate PO SCH (21:06)
[2020-01-22] MEDS: PRAVACHOL PO SCH (21:07)
[2020-01-23] MEDS ORDERED: ZOFRAN INJ 4 MG VIAL IVP PRN (00:36)
[2020-01-23] MEDS: MILK OF MAGNESIA PO SCH ×2 (00:39→13:03)
[2020-01-23] MEDS: COLACE CAP 100 MG PO SCH ×2 (09:22→20:40)
[2020-01-23] MEDS: ELIQUIS PO SCH ×2 (09:23→20:40)
[2020-01-23] MEDS: GLUCOTROL PO SCH ×2 (09:23→20:40)
[2020-01-23] MEDS: ZESTRIL TAB 40 MG PO SCH (09:23)
[2020-01-23] MEDS: NORVASC TAB 10 MG PO SCH (09:23)
[2020-01-23] MEDS: HumuLIN R SC PRN ×3 (13:01→20:54)
--- NOTE | 2020-01-23 13:58 | RAD ---
HISTORYSCREENING FOR TB PRIOR TO SENIOR LIVING ADMISSINONSTUDYCHEST x-ray, 1 VIEWCOMPARISONX-ray 01/19/2020FINDINGSLung volumes are low with crowding of the lung markings. No radiographic evidence of active pulmonary tuberculosis is seen. Tiny pleural effusions are not excluded. Heart is normal in size.IMPRESSIONNo radiographic evidence of active pulmonary tuberculosis is seen.Electronically signed by: Jann Macias (January 23, 2020 13:57:16)
--- NOTE | 2020-01-23 14:23 | PCM.PROG ---
Progress Note Progress Note for Day of Date of Exam: 01/23/20 Subjective Subjective: Pt is a 79 yo m pmhx HTN, DMT2, CVA admitted for dehydration, hyperglycemia, and failure to thrive. His labs have stabilized. Pt has no concerns this morning. CM working on residential placement, COVID-19 negative. Will need CXR for placement. Continue to monitor. Past Medical Family Social History Past Med/Fam/Surg Hx: No changes since H&P Allergies: Allergies No Known Drug Allergies Allergy (Verified 01/10/19 09:15) Review of Systems ROS: No change since H&P Vital Signs and I&O's Vital Signs: Temperature 98.0 F Pulse Rate [Right Brachial] 81 Pulse Rate 72 Respiratory Rate 20 Blood Pressure [Right Arm] 159/81 Blood Pressure 160/85 O2 Sat by Pulse Oximetry 99 Intake and Output: Intake & Output 01/20/20 01/21/20 01/22/20 01/23/20 23:59 23:59 23:59 23:59 Intake Total 2306 / 2306 3295 / 3295 2380 / 2380 120 / 120 Output Total 250 / 250 0 / 0 Balance 2306 / 2306 3295 / 3295 2130 / 2130 120 / 120 Physical Exam Oriented: Normal Eyes: Normal Ear: Normal Nose: Normal Throat: Normal Respiratory: Normal Cardiovascular: Normal : Normal Auscultation: Bowel Sounds: Normal Tenderness: Normal Skin: Normal Musculoskeletal: Left, Arm, Leg, Motor Deficit and Instability Psychiatric: Normal Mood Description: Calm Affect: Normal Speech Pattern: Appropriate Laboratory and Diagnostics Result Diagrams: 01/22/20 04:21 01/22/20 04:21 Labs: Laboratory WBC 14.4 X10^3/uL (3.6-10.0) H 01/22/20 04:21 RBC 4.73 X10^6/uL (4.7-6.0) 01/22/20 04:21 Hgb 14.7 g/dL (13.5-18.0) 01/22/20 04:21 Hct 43.6 % (42.0-54.0) 01/22/20 04:21 MCV 92.1 fL (80.0-100.0) 01/22/20 04:21 MCH 31.2 pg (27.0-34.0) 01/22/20 04:21 MCHC 33.8 g/dL (33.0-35.0) 01/22/20 04:21 RDW 13.7 % (11.6-16.5) 01/22/20 04:21 Plt Count 129 X10^3/uL (150.0-450.0) L 01/22/20 04:21 MPV 10.9 fL (7.4-11.0) 01/22/20 04:21 Neut % (Auto) 87.8 % (42.0-75.0) H 01/22/20 04:21 Lymph % (Auto) 4.0 % (21.0-51.0) L 01/22/20 04:21 [place] % (Auto) 7.8 % (0.0-13.0) 01/22/20 04:21 Eos % (Auto) 0.2 % (0.9-2.9) L 01/22/20 04:21 Baso % (Auto) 0.2 % (0.2-1.0) 01/22/20 04:21 Neut # (Auto) 12.7 x10^3/uL (2.2-4.8) H 01/22/20 04:21 Lymph # (Auto) 0.6 X10^3/uL (1.3-2.9) L 01/22/20 04:21 [place] # (Auto) 1.1 x10^3/uL (0.3-0.8) H 01/22/20 04:21 Eos # (Auto) 0.0 x10^3/uL (0.0-0.2) 01/22/20 04:21 Baso # (Auto) 0.0 X10^3/uL (0.0-0.1) 01/22/20 04:21 Absolute Nucleated RBC 0.1 /100WBC 01/22/20 04:21 PT 13.3 SECONDS (11.8-14.3) 01/19/20 04:20 INR Target Range - 01/19/20 04:20 INR 1.04 (0.8-1.3) 01/19/20 04:20 APTT 32.0 SECONDS (22.9-36.5) 01/19/20 04:20 PTT Comment - 01/19/20 04:20 Sodium 136 mmol/L (136-145) 01/22/20 04:21 Corrected Sodium 136 mmol/L (136-145) 01/22/20 04:21 Potassium 4.3 mmol/L (3.5-5.1) 01/22/20 04:21 Chloride 103 mmol/L (98-107) 01/22/20 04:21 Carbon Dioxide 24.8 mmol/L (21-32) 01/22/20 04:21 BUN 26 mg/dL (7-18) H 01/22/20 04:21 Creatinine 0.85 mg/dL (0.70-1.30) 01/22/20 04:21 Est GFR (MDRD) Af Amer > 60 (>60) 01/22/20 04:21 Est GFR (MDRD) Non-Af > 60 (>60) 01/22/20 04:21 Glucose 117 mg/dL (65-99) H 01/22/20 04:21 POC Glucose (mg/dL) 326 mg/dL (65-99) H 01/23/20 11:59 Calcium 8.5 mg/dL (8.5-10.1) 01/22/20 04:21 Corrected Calcium 9.3 mg/dL (8.5-10.1) 01/20/20 04:27 Magnesium 2.1 mg/dL (1.7-2.9) 01/19/20 04:20 Total Bilirubin 0.70 mg/dL (0.2-1.0) 01/20/20 04:27 AST 39 Units/L (15-37) H 01/20/20 04:27 ALT 68 Units/L (12-78) 01/20/20 04:27 Alkaline Phosphatase 54 Units/L (46-116) 01/20/20 04:27 Creatine Kinase 46 Units/L (39-308) 01/19/20 04:20 CK-MB (CK-2) < 1.0 ng/mL (0-4.0) 01/19/20 04:20 CK/CKMB % Calc 2.2 % (<4) 01/19/20 04:20 Troponin I < 0.02 ng/mL (0-1.5) 01/19/20 04:20 Total Protein 6.4 g/dL (6.4-8.2) 01/20/20 04:27 Albumin 3.2 g/dL (3.4-5.0) L 01/20/20 04:27 Globulin 3.2 g/dL (2.5-4.5) 01/20/20 04:27 Albumin/Globulin Ratio 1.0 Ratio (1.1-2.1) L 01/20/20 04:27 Specimen Type Clean catch urine 01/19/20 04:46 Urine Color Yellow (YELLOW) 01/19/20 04:46 Urine Appearance Slightly hazy (CLEAR) 01/19/20 04:46 Urine pH 6.0 (5.0 - 8.0) 01/19/20 04:46 Ur Specific [place] 1.015 (1.000-1.030) 01/19/20 04:46 Urine Protein 2+ (NEGATIVE) 01/19/20 04:46 Urine Glucose (UA) Negative (NEGATIVE) 01/19/20 04:46 Urine Ketones 2+ (NEGATIVE) 01/19/20 04:46 Urine Occult Blood 1+ (NEGATIVE) 01/19/20 04:46 Urine Nitrite Negative (NEGATIVE) 01/19/20 04:46 Urine Bilirubin Negative (NEGATIVE) 01/19/20 04:46 Urine Urobilinogen 1+ (NORMAL) 01/19/20 04:46 Ur Leukocyte Esterase Negative (NEGATIVE) 01/19/20 04:46 Urine RBC 0-2 /HPF (0-3) 01/19/20 04:46 Urine WBC None seen /HPF (0-5) 01/19/20 04:46 Ur Squamous Epith Cells Few /HPF (NEGATIVE) 01/19/20 04:46 Amorphous Sediment 1+ /HPF (NEGATIVE) 01/19/20 04:46 Urine Bacteria Trace /HPF (NEGATIVE) 01/19/20 04:46 Urine Mucus Few /HPF (NEGATIVE) 01/19/20 04:46 Ur Culture Indicated? No/not indicated 01/19/20 04:46 Plan (1) Dehydration: Status: Acute Plan: Labs stabilized. DUONEBS Q6H PRN, NORVASC 10MG PO DAILY, ELIQUIS 5MG PO BID, GLIPIZIDE 5MG PO BID, NORCO Q8H PRN, HUMULIN R SLIDING SCALE, LISINOPRIL 40MG PO DAILY, AND PRAVASTATIN 40MG PO HS. CONSULT PHYSICAL THERAPY (2) Hyperglycemia: Status: Acute (3) Failure to thrive in adult: Status: Acute (4) CVA (cerebral vascular accident): Status: Chronic Qualifiers: CVA mechanism: unspecified Qualified Code(s): I63.9 - Cerebral infarction, unspecified (5) Hypertension: Status: Chronic Qualifiers: Hypertension type: essential hypertension (6) Diabetes: Status: Chronic Qualifiers: Diabetes mellitus complication status: without complication Diabetes mellitus fci insulin use: unspecified fci insulin use status Diab etes mellitus type: type 2 Qualified Code(s): E11.9 - Type 2 diabetes mellitus without complications
[2020-01-23] MEDS: SNACK - Diabetic Appropriate PO SCH (20:34)
[2020-01-23] MEDS: PRAVACHOL PO SCH (20:40)
[2020-01-23] MEDS: PEPCID TAB 20 MG PO SCH (20:40)
[2020-01-23] MEDS: NORCO 10/325 TAB PO PRN (20:52)
[2020-01-24] MEDS: MILK OF MAGNESIA PO SCH ×2 (01:20→12:47)
--- NOTE | 2020-01-24 08:20 | W.DIS.FURT ---
Summary of Discharge Discharge Summary of Date Date of Exam: 01/24/20 Admission Date Date of Admission: 01/19/20 Admission Diagnosis Patient Problems (Updated 01/20/20 @ 10:31 by Luly Shay) Dehydration (Acute) E86.0 Hyperglycemia (Acute) R73.9 Left hemiplegia (Acute) G81.94 Unable to ambulate (Acute) R26.2 Self-care deficit for feeding, bathing, and toileting (Acute) Z74.1 Essential hypertension (Acute) I10 Failure to thrive in adult (Acute) R62.7 CVA (cerebral vascular accident) (Chronic) I63.9 Hospital Course: Pt is a 79 yo m pmhx HTN, DMT2, CVA, DVT/Bilateral pulmonary embolus (treating with Magdiel) admitted for dehydration, hyperglycemia, and failure to thrive. He was treated with IVF and restarted on his home medications. His labs have stabilized. COVID-19 negative, and CXR negative. Pt is in stable condition and had no concerns on morning of discharge. He will be transferred to [place], [place]. Vital Signs: Vital Signs (72 hours) 01/21/20 09:13 01/21/20 10:13 01/21/20 12:00 Temperature 97.9 F Pulse Rate Pulse Rate [Right Brachial] 62 Respiratory Rate 20 20 20 Blood Pressure [Right Arm] 116/59 O2 Sat by Pulse Oximetry 99 01/21/20 16:00 01/21/20 20:00 01/21/20 20:10 Temperature 97.9 F 98.2 F Pulse Rate 72 Pulse Rate [Right Brachial] 66 72 Respiratory Rate 18 20 Blood Pressure [Right Arm] 154/69 159/79 O2 Sat by Pulse Oximetry 99 99 100 01/21/20 20:49 01/21/20 21:49 01/22/20 00:00 Temperature 98.0 F Pulse Rate Pulse Rate [Right Brachial] 67 Respiratory Rate 20 22 20 Blood Pressure [Right Arm] 142/80 O2 Sat by Pulse Oximetry 98 01/22/20 04:00 01/22/20 05:14 01/22/20 06:13 Temperature 98.6 F Pulse Rate Pulse Rate [Right Brachial] 66 Respiratory Rate 24 20 22 Blood Pressure [Right Arm] 167/80 O2 Sat by Pulse Oximetry 98 01/22/20 08:00 01/22/20 12:00 01/22/20 14:52 Temperature 99.1 F 98.5 F Pulse Rate Pulse Rate [Right Brachial] 74 80 Respiratory Rate 20 20 18 Blood Pressure [Right Arm] 167/81 166/95 O2 Sat by Pulse Oximetry 96 97 01/22/20 15:52 01/22/20 16:00 01/22/20 20:00 Temperature 98 F 97.8 F Pulse Rate Pulse Rate [Right Brachial] 96 H 67 Respiratory Rate 18 20 18 Blood Pressure [Right Arm] 171/96 161/86 O2 Sat by Pulse Oximetry 98 94 L 01/23/20 00:00 01/23/20 04:00 01/23/20 08:00 Temperature 98.1 F 97.8 F 98.0 F Pulse Rate Pulse Rate [Right Brachial] 90 83 81 Respiratory Rate 20 18 20 Blood Pressure [Right Arm] 161/94 154/82 159/81 O2 Sat by Pulse Oximetry 95 96 99 01/23/20 12:00 01/23/20 16:00 01/23/20 20:00 Temperature 97.8 F 98.0 F 98.2 F Pulse Rate Pulse Rate [Right Brachial] 74 68 77 Respiratory Rate 20 20 24 Blood Pressure [Right Arm] 156/77 158/77 159/74 O2 Sat by Pulse Oximetry 98 98 97 01/23/20 20:52 01/23/20 21:52 01/24/20 00:00 Temperature 98.1 F Pulse Rate Pulse Rate [Right Brachial] 73 Respiratory Rate 20 22 22 Blood Pressure [Right Arm] 124/68 O2 Sat by Pulse Oximetry 98 01/24/20 04:00 Temperature 97.6 F Pulse Rate Pulse Rate [Right Brachial] 70 Respiratory Rate 20 Blood Pressure [Right Arm] 139/89 O2 Sat by Pulse Oximetry 99 Labs: Laboratory Last Values WBC 14.4 X10^3/uL (3.6-10.0) H 01/22/20 04:21 RBC 4.73 X10^6/uL (4.7-6.0) 01/22/20 04:21 Hgb 14.7 g/dL (13.5-18.0) 01/22/20 04:21 Hct 43.6 % (42.0-54.0) 01/22/20 04:21 MCV 92.1 fL (80.0-100.0) 01/22/20 04:21 MCH 31.2 pg (27.0-34.0) 01/22/20 04:21 MCHC 33.8 g/dL (33.0-35.0) 01/22/20 04:21 RDW 13.7 % (11.6-16.5) 01/22/20 04:21 Plt Count 129 X10^3/uL (150.0-450.0) L 01/22/20 04:21 MPV 10.9 fL (7.4-11.0) 01/22/20 04:21 Neut % (Auto) 87.8 % (42.0-75.0) H 01/22/20 04:21 Lymph % (Auto) 4.0 % (21.0-51.0) L 01/22/20 04:21 [place] % (Auto) 7.8 % (0.0-13.0) 01/22/20 04:21 Eos % (Auto) 0.2 % (0.9-2.9) L 01/22/20 04:21 Baso % (Auto) 0.2 % (0.2-1.0) 01/22/20 04:21 Neut # (Auto) 12.7 x10^3/uL (2.2-4.8) H 01/22/20 04:21 Lymph # (Auto) 0.6 X10^3/uL (1.3-2.9) L 01/22/20 04:21 [place] # (Auto) 1.1 x10^3/uL (0.3-0.8) H 01/22/20 04:21 Eos # (Auto) 0.0 x10^3/uL (0.0-0.2) 01/22/20 04:21 Baso # (Auto) 0.0 X10^3/uL (0.0-0.1) 01/22/20 04:21 Absolute Nucleated RBC 0.1 /100WBC 01/22/20 04:21 PT 13.3 SECONDS (11.8-14.3) 01/19/20 04:20 INR Target Range - 01/19/20 04:20 INR 1.04 (0.8-1.3) 01/19/20 04:20 APTT 32.0 SECONDS (22.9-36.5) 01/19/20 04:20 PTT Comment - 01/19/20 04:20 Sodium 136 mmol/L (136-145) 01/22/20 04:21 Corrected Sodium 136 mmol/L (136-145) 01/22/20 04:21 Potassium 4.3 mmol/L (3.5-5.1) 01/22/20 04:21 Chloride 103 mmol/L (98-107) 01/22/20 04:21 Carbon Dioxide 24.8 mmol/L (21-32) 01/22/20 04:21 BUN 26 mg/dL (7-18) H 01/22/20 04:21 Creatinine 0.85 mg/dL (0.70-1.30) 01/22/20 04:21 Est GFR (MDRD) Af Amer > 60 (>60) 01/22/20 04:21 Est GFR (MDRD) Non-Af > 60 (>60) 01/22/20 04:21 Glucose 117 mg/dL (65-99) H 01/22/20 04:21 POC Glucose (mg/dL) 158 mg/dL (65-99) H 01/24/20 05:26 Calcium 8.5 mg/dL (8.5-10.1) 01/22/20 04:21 Corrected Calcium 9.3 mg/dL (8.5-10.1) 01/20/20 04:27 Magnesium 2.1 mg/dL (1.7-2.9) 01/19/20 04:20 Total Bilirubin 0.70 mg/dL (0.2-1.0) 01/20/20 04:27 AST 39 Units/L (15-37) H 01/20/20 04:27 ALT 68 Units/L (12-78) 01/20/20 04:27 Alkaline Phosphatase 54 Units/L (46-116) 01/20/20 04:27 Creatine Kinase 46 Units/L (39-308) 01/19/20 04:20 CK-MB (CK-2) < 1.0 ng/mL (0-4.0) 01/19/20 04:20 CK/CKMB % Calc 2.2 % (<4) 01/19/20 04:20 Troponin I < 0.02 ng/mL (0-1.5) 01/19/20 04:20 Total Protein 6.4 g/dL (6.4-8.2) 01/20/20 04:27 Albumin 3.2 g/dL (3.4-5.0) L 01/20/20 04:27 Globulin 3.2 g/dL (2.5-4.5) 01/20/20 04:27 Albumin/Globulin Ratio 1.0 Ratio (1.1-2.1) L 01/20/20 04:27 Specimen Type Clean catch urine 01/19/20 04:46 Urine Color Yellow (YELLOW) 01/19/20 04:46 Urine Appearance Slightly hazy (CLEAR) 01/19/20 04:46 Urine pH 6.0 (5.0 - 8.0) 01/19/20 04:46 Ur Specific [place] 1.015 (1.000-1.030) 01/19/20 04:46 Urine Protein 2+ (NEGATIVE) 01/19/20 04:46 Urine Glucose (UA) Negative (NEGATIVE) 01/19/20 04:46 Urine Ketones 2+ (NEGATIVE) 01/19/20 04:46 Urine Occult Blood 1+ (NEGATIVE) 01/19/20 04:46 Urine Nitrite Negative (NEGATIVE) 01/19/20 04:46 Urine Bilirubin Negative (NEGATIVE) 01/19/20 04:46 Urine Urobilinogen 1+ (NORMAL) 01/19/20 04:46 Ur Leukocyte Esterase Negative (NEGATIVE) 01/19/20 04:46 Urine RBC 0-2 /HPF (0-3) 01/19/20 04:46 Urine WBC None seen /HPF (0-5) 01/19/20 04:46 Ur Squamous Epith Cells Few /HPF (NEGATIVE) 01/19/20 04:46 Amorphous Sediment 1+ /HPF (NEGATIVE) 01/19/20 04:46 Urine Bacteria Trace /HPF (NEGATIVE) 01/19/20 04:46 Urine Mucus Few /HPF (NEGATIVE) 01/19/20 04:46 Ur Culture Indicated? No/not indicated 01/19/20 04:46 Reason For Visit: DEHYDRATION; HYPERGLYCEMIA; UNABLE TO PROVIDE SELF Discharge Date Discharge Date: 01/24/20 Discharge Diagnosis All Active Problems (Updated 01/20/20 @ 10:31 by Luly Shay) Dehydration (Acute) Hyperglycemia (Acute) Left hemiplegia (Acute) Unable to ambulate (Acute) Self-care deficit for feeding, bathing, and toileting (Acute) Essential hypertension (Acute) Failure to thrive in adult (Acute) CVA (cerebral vascular accident) (Chronic) Hypertension (Chronic) Diabetes (Chronic) Plan of Treatment: Continue with present treatment and follow up plan. Pt is to keep follow up appointment as instructed and take medications as ordered. Discharge Medications Discharge Medications: No Known Drug Allergies Allergy (Verified 01/10/19 09:15) New Prescriptions docusate sodium 100 mg PO BID 30 Days #60 cap 01/24/20 [Rx] famotidine 20 mg PO BID 30 Days #60 tab 01/24/20 [Rx] glipizide 5 mg PO BID 30 Days #60 tab 01/24/20 [Rx] hydrocodone-acetaminophen 1 tab PO Q8H PRN 30 Days #90 tab MDD 3 tab 01/24/20 [Rx] hydrocodone-acetaminophen 1 tab PO Q8H PRN 30 Days #90 tab MDD 30mg 01/24/20 [Rx] Discharge Disposition Discharge Disposition: [facility], [place] Discharge Condition: Stable
[2020-01-24] MEDS: COLACE CAP 100 MG PO SCH (08:47)
[2020-01-24] MEDS: GLUCOTROL PO SCH (08:47)
[2020-01-24] MEDS: ELIQUIS PO SCH (08:47)
[2020-01-24] MEDS: NORVASC TAB 10 MG PO SCH (08:48)
[2020-01-24] MEDS: ZESTRIL TAB 40 MG PO SCH (08:48)
[2020-01-24] MEDS: PEPCID TAB 20 MG PO SCH (08:48)
[2020-01-24] MEDS: DUONEB 0.5 MG/3 MG (3 mL) NEB PRN (09:41)
[2020-01-24 12:25] VITALS: BP 135/71
[2020-01-24] MEDS: HumuLIN R SC PRN (12:47)
[2020-01-24] MEDS: NORCO 10/325 TAB PO PRN (13:49)
== END 2020-01-24 15:25 ==
LOC: MED/SURG 03:24 → ER 03:24 → MED/SURG 07:48
PROVIDERS: ADMIT Internal Medicine; ATTEND Family Medicine
DX: R62.7 Adult failure to thrive; M79.605 Pain in left leg; R94.31 Abnormal electrocardiogram [ECG] [EKG]; E11.65 Type 2 diabetes mellitus with hyperglycemia; Z11.59 Encounter for screening for other viral diseases; G81.94 Hemiplegia, unspecified affecting left nondominant side; E86.0 Dehydration; R26.89 Other abnormalities of gait and mobility; Z86.73 Personal history of transient ischemic attack (TIA), and cerebral infarction without residual deficits; E78.5 Hyperlipidemia, unspecified; I10 Essential (primary) hypertension; B27.00 Gammaherpesviral mononucleosis without complication; M54.5 Low back pain
CPT/HCPCS: 36415; 71010; 71045; 80048; 80053; 81001; 82550; 82553; 83735; 84484; 85025; 85610; 85730; 93005; 94640; 94760; 96360; 96361; 96365; 96372; 96374; 97110; 97112; 97163; 97167; 97530; 99284; A4216; A4222; G0378; J1815; J3490; J7030; J7620